=== PATIENT | female | born 1995 | race Caucasian/White ===

== ENCOUNTER 2020-05-12 13:31 | Emergency (ER) | payer SELFPAY ==
[2020-05-12 13:35] VITALS: BP 114/80; PULSE 92; RESP 18; TEMP 36.9; O2SAT 100
[2020-05-12] MEDS: ONDANSETRON HCL ODT 4 MG TABLET PO (13:55)
--- NOTE | 2020-05-12 13:59 | ED.NAVMDI ---
HPI - Nausea/Vomiting/Diarrhea General Chief complaint: Nausea/Vomiting/Diarrhea Stated complaint: vomiting/nausea/fletcher Source: patient and RN notes reviewed Mode of arrival: ambulatory Limitations: no limitations History of Present Illness HPI Narrative: This is a 24-year-old white female that presented to urgent care today with complaints of nausea and vomiting , sweats, lightheadedness and soft stools. According to patient she developed nausea and vomiting this a.m.. Patient notes that she is unable to keep any food down she has attempted to drink water but was unable to keep it down. She also noted that she had soft stool not quite diarrhea. She did attempt to take some zwez-rin-prrgnnh antinausea medication at home without any relief. She also noted having a little lightheadedness due to the nausea and vomiting. Patient does deny any abdominal pain ,hematemesis, rectal bleeding , SOB, CP, palpitation, extremity numbness, lightheadedness, dizziness, constipation, diarrhea, chills, or fever. Although patient is on her. She knows that with her condition she still become while on her menstrual. test complete and negative MD elicited complaint: nausea and vomiting Description of diarrhea: other (Soft) Related Data Allergies Allergy/AdvReac Type Severity Reaction Status Date / Time No Known Allergies Allergy Verified 05/12/20 13:45 Review of Systems Review of Systems: Narrative: CONSTITUTIONAL: Fatigue and sweats EYES: Denies visual changes, redness, discharge. ENT: Denies rhinorrhea, congestion, sore throat, otalgia. CARDIOVASCULAR: Denies chest pain, palpitations, edema. RESPIRATORY: Denies dyspnea, wheezing, cough GASTROINTESTINAL: Denies abdominal pain, diarrhea complains of nausea, vomiting, stools GENITOURINARY: Denies dysuria, hematuria, abnormal discharge SKIN: Denies rash or itching. MUSCULOSKELETAL: Denies acute back pain, joint pain, or myalgia. NEUROLOGIC: Denies numbness, or focal weakness. Lightheadedness PSYCHIATRIC: Denies anxiety or depression. PMFSH Past Medical History Medical History (Updated 05/12/20 @ 13:59 by JARRED Tanner) Anxiety Social History Social History (Updated 09/08/19 @ 23:51 by Poppy Helm) Smoking status: Current every day smoker Exam Narrative: Exam Narrative: GENERAL: This is a well-nourished, well-developed patient, in no apparent distress. HEAD: normocephalic, atraumatic. EYES: PERRL. Sclera clear/white. Vision is grossly intact. EARS: External ears normal, auditory canals clear and without drainage, TMs normal without perforation. Hearing grossly intact. NOSE: External nose normal with no obvious nasal discharge, nares without redness, no rhinorrhea. THROAT: Mucous membranes moist, posterior pharynx clear. NECK: Neck supple, non-tender without lymphadenopathy, masses or thyromegaly. CARDIOVASCULAR: Regular rate and rhythm without murmurs, gallops, or rubs. RESPIRATORY: Clear to auscultation. Breath sounds equal bilaterally. No wheezes, rales, or rhonchi. GASTROINTESTINAL: Abdomen soft, non-tender, nondistended. Bowel sounds are active. No hepato-splenomegaly, or palpable masses. No guarding. SKIN: warm, intact with no suspicious lesions or rash, good texture and turgor. NEURO: awake, alert, and oriented to person, place and time. There were no obvious focal neurologic abnormalities. Steady gait EXTREMITIES: Normal range of motion. No edema. No calf tenderness. Negative Homans sign bilaterally. BACK: Nontender without deformity or crepitance. No flank tenderness. Course Course Emergency Course: Patient treated for gastroenteritis given Zofran and Imodium for her nausea vomiting and diarrhea. Vital Signs Vital signs: Vital Signs Temperature 98.5 F 05/12/20 13:35 Pulse Rate 92 05/12/20 13:35 Respiratory Rate 18 05/12/20 13:35 Blood Pressure 114/80 05/12/20 13:35 Pulse Oximetry 100 05/12/20 13:35 Temperature 98.5 F
== END 2020-05-12 14:21 | disposition home or self-care (01) ==
PROVIDERS: Emergency Provider Nurse Practitioner
DX: K52.9 Noninfective gastroenteritis and colitis, unspecified (principal); F17.200 Nicotine dependence, unspecified, uncomplicated
CPT/HCPCS: 81025; 99213; A9270; G0463

== ENCOUNTER 2022-07-19 12:04 | Emergency (ER) | payer BC, SELFPAY ==
[2022-07-19 12:12] VITALS: BP 128/83; PULSE 77; RESP 20; TEMP 36.4; O2SAT 100
--- NOTE | 2022-07-19 12:28 | ED.URI ---
HPI - URI/Sore Throat General Chief Complaint: Upper Respiratory Infection Stated Complaint: Cough,Body Aches Time Seen by Provider: 07/19/22 12:17 Source: patient Mode of arrival: ambulatory Limitations: no limitations History of Present Illness HPI Narrative: Patient presents today complaining of cough body aches, postnasal drip, fatigue, and itchy throat since yesterday. Denies cough, congestion, rhinorrhea, fever, shortness of breath. Reports multiple sick contacts at work. She has been taking [place] Plus with relief. Patient does vape. Related Data Home Medications Medication Instructions Recorded Confirmed No Home Medications 07/19/22 07/19/22 Allergies Allergy/AdvReac Type Severity Reaction Status Date / Time No Known Allergies Allergy Verified 07/19/22 12:21 Review of Systems Review of Systems: CONSTITUTIONAL: Denies fever, chills, or sweats.+ body aches, fatigue EYES: Denies visual changes, redness, or discharge. ENT: Denies rhinorrhea, congestion, sore throat, or otalgia.+ itchy throat, postnasal drip CARDIOVASCULAR: Denies chest pain, palpitations, or edema. RESPIRATORY: Denies cough or dyspnea. GASTROINTESTINAL: Denies abdominal pain, nausea, vomiting, or diarrhea. GENITOURINARY: Denies dysuria or hematuria. SKIN: Denies rash, itching, or wounds. MUSCULOSKELETAL: Denies back pain, joint pain, or myalgia. NEUROLOGIC: Denies headache, numbness, tingling, or weakness. PSYCH: Denies depression or anxiety. FOR[facility]LY [facility], [facility] Past Medical History Medical History Anxiety Social History Social History (Updated 07/19/22 @ 12:30 by Lali Martinez, [employer], ) Smoking status: Current every day smoker Tobacco type: e-cigarettes/vaping Comments At time of signature, I have reviewed and agree with nursing past medical, surgical, social and family history unless otherwise noted. Please see nursing chart for further information. There is no relevant family history pertinent to the presenting complaint Exam Narrative: GENERAL: Well-appearing, well-nourished, and in no acute distress. HEAD: Normocephalic, atraumatic. EYES: EOMI. No redness or drainage. Conjunctivae normal. ENT: Mucous membranes pink and moist. Nares clear. No rhinorrhea. TMs normal bilaterally. Throat normal with mild postnasal drainage. Uvula midline. NECK: Normal AROM. Supple. No lymphadenopathy. CHEST: No respiratory distress. Clear to auscultation. HEART: Regular rate and rhythm. No murmur appreciated. Normal peripheral pulses. EXTREMITIES: Normal range of motion. No edema. SKIN: Warm, dry, no rash. Capillary refill normal. Normal skin turgor. NEURO: No focal deficits. Alert and oriented x3. Gait steady. PSYCH: Normal affect. No signs of depression or anxiety. Course Course Level of Care: Express Care Visit Vital Signs Vital signs: Vital Signs Temperature 97.5 F L 07/19/22 12:12 Pulse Rate 77 07/19/22 12:12 Respiratory Rate 20 07/19/22 12:12 Blood Pressure 128/83 07/19/22 12:12 Pulse Oximetry 100 07/19/22 12:12 Oxygen Delivery Room Air 07/19/22 12:12 Temperature 97.5 F L 07/19/22 12:12 Pulse Rate 77 07/19/22 12:12 Respiratory Rate 20 07/19/22 12:12 Blood Pressure 128/83 07/19/22 12:12 Pulse Oximetry 100 07/19/22 12:12 Oxygen Delivery Room Air 07/19/22 12:12 Reviewed. Pt has been instructed to follow up with her PCP regarding her elevated blood pressure today. MDM - URI/Sore Throat Differential Diagnosis Differential diagnosis: Likely upper respiratory infection, viral infection and influenza Critical Care Time Critical Care Time Critical Care Time: No Discharge Plan Discharge Clinical Impression: Upper respiratory infection Qualifiers: URI type: unspecified URI Qualified Code(s): J06.9 - Acute upper respiratory infection, unspecified Patient Disposition: Home, Self-Care Condition: Stable Ins
== END 2022-07-19 12:34 | disposition home or self-care (01) ==
PROVIDERS: Emergency Provider Nurse Practitioner
DX: J06.9 Acute upper respiratory infection, unspecified (principal); F17.290 Nicotine dependence, other tobacco product, uncomplicated
CPT/HCPCS: 99213; G0463

== ENCOUNTER 2024-01-20 20:18 | Emergency (ER) | payer BC, SELFPAY ==
--- NOTE | ~2024-01-20 | XR_ITS ---
Left Knee Technique: AP, lateral, and sunrise views were obtained. Clinical History: Pain, postoperative for COMPARISON: 03/16/2015 Findings: No fracture or dislocation is seen. Patient is status post ACL reconstruction. Osseous alig nment is anatomic. Joint spaces are preserved without degenerative or erosive change. Soft tissue swe lling and small amount of soft tissue gas present, predominantly in the suprapatellar region. Probabl e small joint effusion.. Impression: Status post presumed recent ACL reconstruction, with associated presumed postoperative changes in the soft tissues, as noted above. Small joint effusion. Reviewed, dictated and finalized at location . Impression: Status post presumed recent ACL reconstruction, with associated presumed postop erative changes in the soft tissues, as noted above. Small joint effusion.
[2024-01-20 20:30] VITALS: BP 139/94; PULSE 115; RESP 18; TEMP 36.6; O2SAT 96
--- NOTE | 2024-01-20 21:05 | PC.NURSE ---
lab notified of new orders
[2024-01-20 22:01] VITALS: BP 131/90; PULSE 92; RESP 18; O2SAT 100
[2024-01-20 22:01] LABS: Hematocrit 39.4 % (35.0-49.0); Hemoglobin 13.3 g/dL (12.0-15.0); Mean Corpuscular HGB Conc 33.8 g/dL (32-36); Mean Corpuscular Hemoglobin 29.7 pg (27.0-31.0); Mean Corpuscular Volume 87.9 fL (78.0-102.0); Platelet Count Result 324 K/mm3 (150-420); Red Blood Count 4.48 M/mm3 (4.20-5.40); Red Cell Distribution Width 12.1 % (11.6-14.4)
[2024-01-20 22:17] LABS: Alanine Aminotransferase 35 U/L (14-59); Albumin Level 3.5 g/dL (3.4-5.0); Alkaline Phosphatase 65 U/L (46-116); Anion Gap 12 mmol/L (4-12); Aspartate Amino Transferase 17 U/L (15-37); Bilirubin,Total 0.8 mg/dL (0.00-1.00); Blood Urea Nitrogen 13 mg/dL (7-18); CRP 2.5 mg/dL (0.0-0.9); Calcium 9.2 mg/dL (8.5-10.1); Carbon Dioxide 26 mmol/L (21-32); Chloride 100 mmol/L (98-108); Estimated CRCL calculation 84 ml/min; Estimated Glomerular Filt Rate > 60; Glucose 115 mg/dL (70-99); Osmolality Calculated 287 mOsm/kg (285-295); Potassium 3.9 mmol/L (3.5-5.1); Sodium 138 mmol/L (136-145); Total Protein 7.8 g/dL (6.4-8.2)
[2024-01-20 22:49] LABS: D Dimer 1.51 mg/L (0.19-0.50)
--- NOTE | 2024-01-20 22:57 | ED.GENADULT ---
HPI - General Adult General Chief complaint: Allergic Reaction Stated complaint: allergic reaction Source: patient Mode of arrival: ambulatory Limitations: no limitations History of Present Illness HPI narrative: 28-year-old white female status post postop day 4. From AC repair her left knee [facility]. Patient came into the emergency room complaining of a possible allergic reaction to a Band-Aid/ bandage that she place last night Over left side of her knee. She has complained of blisters around wound Without any discharge. Around 7:00 p.m. tonight she had a fever of 100.1 she noticed her left knee was warm to touch little bit more swollen and more erythematous. She has a knee immobilizer in place and she says she has pain in the knee 03/22. She relates this more to her knee immobilizer not fitting correctly.. Patient had some nausea and vomiting twice yesterday but denies any nausea vomiting and her appetite today is good denies any diarrhea. She has been constipated and has not had a bowel movement since her surgery been using stool softener and she years MiraLax once yesterday denies any problems voiding. Denies any shortness of breath or dizziness today. Denies any other rash besides erythema and the rash in the shape of a bandage that she had on her left knee. Denies any other thumb swelling than the increase in swelling of her left knee. Her left knee is hot today compared to yesterday was a normal temperature. She took some Tylenol at 8:00 p.m.. She stop taking her [place] yesterday. No history of DVT in the past denies any cough runny nose or sore throat or any other complaints. Past medical history: no significant past medical history surgeries just the recent AC repair allergies no known drug allergies Related Data Home Medications Medication Instructions Recorded Confirmed aspirin 81 mg tablet,delayed 81 mg PO DAILY 01/20/24 01/20/24 release Allergies Allergy/AdvReac Type Severity Reaction Status Date / Time No Known Allergies Allergy Verified 07/19/22 12:21 Review of Systems Review of Systems: All systems reviewed & are unremarkable except as noted in HPI and below PMFSH Past Medical History Medical History Anxiety Social History Social History (Updated 07/19/22 @ 12:30 by Lali Martinez, [employer], ) Smoking status: Current every day smoker Tobacco type: e-cigarettes/vaping Gender identity (if verbalized by the patient): Female Exam Narrative: White female patient with no apparent distress.? Head normocephalic, atraumatic.? Eyes conjunctiva pink sclera nonicteric.? Extraocular movements are intact.? Ears externally normal.? Oropharynx is clear with moist mucous membranes without exudates.? ? Lungs are clear.? Heart is regular rate and rhythm without murmurs gallops or rubs. Abdomen is soft and nontender no hepatosplenomegaly or masses no CVA tenderness no abdominal bruits.? Extremities: Left knee status post multiple incisions no drainage. The right side of the knee has the increased erythema in the shape of bandage that she had on recently with some blisters around the wound edges. And the knee itself is swollen hot to touch mildly tender. There is increased erythema. Thigh and calf are nontender. DP and PT pulses are +2. Negative Homans sign? Skin is warm and dry without rashes other than left knee.? Neurological patient is alert and oriented x4.? Motor and sensory grossly intact.? Gait is normal. Course Vital Signs Vital signs: Vital Signs Temperature 36.6 C 01/20/24 20:30 Pulse Rate 115 H 01/20/24 20:30 Respiratory Rate 18 01/20/24 20:30 Blood Pressure 139/94 H 01/20/24 20:30 Pulse Oximetry 96 01/20/24 20:30 Oxygen Delivery Room Air 01/20/24 20:30 Temperature 36.6 C 01/20/24 20:30 Pulse Rate 92 01/20/24 22:01 Respiratory Rate 18
--- NOTE | 2024-01-20 23:00 | PC.NURSE ---
patient is resting on stretcher with boyfriend at her side. waiting on provider to give test results. call light is in reach.
[2024-01-20 23:01] LABS: Erythrocyte Sedimentation Rate 42 mm/hr (0-15)
--- NOTE | 2024-01-20 23:46 | PC.NURSE ---
ER provider at the bedside
[2024-01-21] MEDS: ceFAZolin SODIUM 1 GM VIAL IM (00:38)
--- NOTE | 2024-01-27 15:27 | PC.NURSE ---
final blood cultures x2 reviewed. No growth after 5 days . No change in plan of care.
--- NOTE | 2024-01-28 14:13 | PC.NURSE ---
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 Patient discharged on Cephalexin. Per ERP Dr. Ge, no need for change in medication or further action at this time.
== END 2024-01-21 00:49 | disposition home or self-care (01) ==
PROVIDERS: Emergency Provider Emergency Medicine
DX: I82.492 Acute embolism and thrombosis of other specified deep vein of left lower extremity (principal); T81.40XA Infection following a procedure, unspecified, initial encounter; T78.40XA Allergy, unspecified, initial encounter
CPT/HCPCS: 36415; 73562; 80053; 85027; 85380; 85652; 86140; 87040; 87147; 96372; 99283; J0690

== ENCOUNTER 2024-01-23 07:16 | Outpatient (CLI) | payer BC, SELFPAY ==
--- NOTE | ~2024-01-23 | US_ITS ---
LEFT LOWER EXTREMITY VENOUS ULTRASOUND Ordering provider: Minh Castillo History: . calf swelling . Comparison: None. FINDINGS: --COMMON FEMORAL: Patent and free of thrombus. Normal compressibility, phasic flow and augmentation. --PROXIMAL SUPERFICIAL FEMORAL: Patent and free of thrombus. Normal compressibility, phasic flow and augmentation. --DISTAL SUPERFICIAL FEMORAL: Patent and free of thrombus. Normal compressibility, phasic flow and au gmentation. --POPLITEAL: Patent and free of thrombus. Normal compressibility, phasic flow and augmentation. --POSTERIOR TIBIAL: Patent and free of thrombus. Normal compressibility, phasic flow and augmentation . Free fluid is seen posterior to the knee which may indicate rupture Nassar's cyst. IMPRESSION: Negative left lower extremity venous US. No deep vein thrombosis. Reviewed, dictated and finalized at location A.
== END 2024-01-23 07:17 | disposition home or self-care (01) ==
LOC: CHSIMG 07:17
DX: M79.89 Other specified soft tissue disorders (principal)
CPT/HCPCS: 93971

== ENCOUNTER 2024-02-05 15:15 | Outpatient (RCR) | payer BC, SELFPAY ==
--- NOTE | 2024-02-05 16:58 | OPREHPOC ---
Outpatient Therapy Plan of Care This is a Multidisciplinary Plan of Care that may contain components documented by all disciplines (PT, OT, and ST.) PT Problem 1 PT Problem #1 Knowledge Deficit PT Goal 1 Goal The patient will be independent in a home exercise program. Target Visit 4 PT Goal 2 Goal The patient will be independent in an advanced home exercise program to continue after discharge from skilled PT. Target Visit 36 PT Problem 2 PT Problem #2 Pain PT Goal 1 Goal The patient will report no greater than 3/10 left knee pain with return to full weight bearing on the left LE with gait. Target Visit 12 PT Goal 2 Goal The patient will report no greater than 1/10 left knee pain with return to previous activities. Target Visit 36 PT Problem 3 PT Problem #3 Impaired Range of Motion PT Goal 1 Goal The patient will demonstrate left knee AROM of 0- 130 degrees to normalize gait. Target Visit 12 PT Problem 4 PT Problem #4 Impaired Functional Mobil PT Goal 1 Goal 1. The patient will demonstrate less than 50% self perceived disability per the LEFS. 2. The patient will be able to transfer sit to stand without use of the UE to improve functional strength and mobility. Target Visit 12 PT Goal 2 Goal 1. The patient will demonstrate less than 10% self perceived disability per the LEFS. 2. The patient will ambulate at least 1,200 feet during the 6 minute walk test without an AD and normal gait mechanics. 3. The patient will ascend and descend a flight of stairs reciprocally without left knee pain. Target Visit 36 PT Problem 5 PT Problem #5 Impaired Strength PT Goal 1 Goal The patient will be able to perform a SLR on the left with no extension lag indicating improved strength. Target Visit 12 PT Goal 2 Goal 1. The patient will demonstrate 5/5 left knee and hip strength throughout to normalize gait and functional mobility.
--- NOTE | 2024-02-05 16:58 | PTOPEVAL1 ---
Assessment and note entered by Ada Medley, PT Evaluation Information Assessment Status Evaluation Diagnosis s/p L ACL & MCL reconstruction Onset 01/17/24 Subjective Information Sergio Daily reports on 12/23/23 she was charged by a cow and had to jump over a fence and landed on her left leg. She went to the ER the same day and x-rays were taken. She was cleared for fractures but was diagnosed with an ACL rupture. She reports surgery was on 01/17/24 for an ACL reconstruction with a cadaver ligament as well as stabilization of the MCL. She was non-weight bearing and instructed to keep her knee straight from surgery until her follow up with the surgeon on 01/31/24. She was released to start weight bearing as tolerated. She is reporting her knee is achy but is not in a lot of pain. She does note pain and tightness with bending. She also notes atrophy in her muscles. She works at [employer] and has been unable to work because she is on crutches . Reported Pain Level Pain Score 1: Self Report Assessment PT Clinical Summary Sergio Daily presents 2.5 weeks s/p left ACL and MCL reconstruction following an injury sustained on 12/23/23 when she jumped a fence to avoid being charged by a cow. She has been non-weight bearing since the injury. She has only been performing ankle pumps since surgery on 01/17/24. She demonstrates fair (-) recruitment of the left quadriceps muscle, decreased left knee flexion AROM, decreased left knee and hip strength, altered gait, and impaired balance. She will benefit from skilled PT to address these limitations and return her to her previous level of function. Plan of Care Interventions Electrical Stimulation,Gait Training,Hot Pack/Cold Pack,Intermittent Compression,Manual Therapy, Neuro Re-education,Patient/Caregiver Educati, Therapeutic Activities,Therapeutic Exercise PT Services Indicated Yes Treatment Frequency and 3 times a week for 36 visits Duration These treatments will address the objective and functional deficits as defined above. The patient will be advanced safely and appropriately in order for the patient to progress towards his/her prior level of function. Additional exercises will be introduced and as well as a comprehensive home exercise program upon discharge, if needed, ?to ensure carryover of functional gains achieved in the clinic. This treatment plan has been reviewed and agreement upon by the patient.
--- NOTE | 2024-02-07 14:47 | PCPTNOTE ---
02/07/24: Updates made to IE note after speaking to surgeon's office this date and getting clarification on surgical procedure. -Ada Medley, PT
--- NOTE | 2024-02-07 14:48 | PTOPEVAL1 ---
Assessment and note entered by Ada Medley, PT Evaluation Information Assessment Status Evaluation Diagnosis s/p L ACL reconstruction Onset 01/17/24 Subjective Information Sergio Daily reports on 12/23/23 she was charged by a cow and had to jump over a fence and landed on her left leg. She went to the ER the same day and x-rays were taken. She was cleared for fractures but was diagnosed with an ACL rupture. She reports surgery was on 01/17/24 for an ACL reconstruction with a cadaver ligament as well as stabilization of the whole knee. She was non- weight bearing and instructed to keep her knee straight from surgery until her follow up with the surgeon on 01/31/24 when she was released to start weight bearing as tolerated. She is reporting her knee is achy but is not in a lot of pain. She does note pain and tightness with bending. She also notes atrophy in her muscles. She works at [employer] and has been unable to work because she is on crutches and not allowed to come to work on crutches. Reported Pain Level Pain Score 2: Self Report Pain Score 1: Self Report Assessment PT Clinical Summary Sergio Daily presents 2.5 weeks s/p left ACL reconstruction following an injury sustained on 08/05 when she jumped a fence to avoid being charged by a cow. She has been non-weight bearing since the injury. She has only been performing ankle pumps since surgery on 01/17/24. She demonstrates fair (-) recruitment of the left quadriceps muscle, decreased left knee flexion AROM, decreased left knee and hip strength, altered gait, and impaired balance. She will benefit from skilled PT to address these limitations and return her to her previous level of function. Plan of Care Interventions Electrical Stimulation,Gait Training,Hot Pack/Cold Pack,Intermittent Compression,Manual Therapy, Neuro Re-education,Patient/Caregiver Educati, Therapeutic Activities,Therapeutic Exercise PT Services Indicated Yes Treatment Frequency and 3 times a week for 36 visits Duration These treatments will address the objective and functional deficits as defined above. The patient will be advanced safely and appropriately in order for the patient to progress towards his/her prior level of function. Additional exercises will be introduced and as well as a comprehensive home exercise program upon discharg
--- NOTE | 2024-02-08 14:51 | PCPTNOTE ---
I reviewed the License Pending Therapist's documentation and agree with the findings.
--- NOTE | 2024-02-18 17:53 | PCPTNOTE ---
I reviewed the License Pending Therapist's documentation and agree with the findings.
--- NOTE | 2024-02-22 13:49 | PCPTNOTE ---
I reviewed the License Pending Therapist's documentation and agree with the findings.
--- NOTE | 2024-02-25 13:14 | PCPTNOTE ---
Patient called & cancelled scheduled appointment this date due to [illness ]
--- NOTE | 2024-03-03 15:12 | PCPTNOTE ---
I reviewed the License Pending Therapist's documentation and agree with the findings.
--- NOTE | 2024-03-06 16:49 | OPREHPOC ---
Outpatient Therapy Plan of Care This is a Multidisciplinary Plan of Care that may contain components documented by all disciplines (PT, OT, and ST.) PT Problem 1 PT Problem #1 Knowledge Deficit PT Goal 1 Goal The patient will be independent in a home exercise program. Target Visit 4 Progress Met PT Goal 2 Goal The patient will be independent in an advanced home exercise program to continue after discharge from skilled PT. Target Visit 36 Progress Not Met PT Problem 2 PT Problem #2 Pain PT Goal 1 Goal The patient will report no greater than 3/10 left knee pain with return to full weight bearing on the left LE with gait. Target Visit 24 Progress Not Met PT Goal 2 Goal The patient will report no greater than 1/10 left knee pain with return to previous activities. Target Visit 36 Progress Not Met PT Problem 3 PT Problem #3 Impaired Range of Motion PT Goal 1 Goal The patient will demonstrate left knee AROM of 0- 130 degrees to normalize gait. Target Visit 24 Progress Not Met PT Problem 4 PT Problem #4 Impaired Functional Mobil PT Goal 1 Goal 1. The patient will demonstrate less than 50% self perceived disability per the LEFS. 2. The patient will be able to transfer sit to stand without use of the UE to improve functional strength and mobility. Target Visit 24 Progress Not Met PT Goal 2 Goal 1. The patient will demonstrate less than 10% self perceived disability per the LEFS. 2. The patient will ambulate at least 1,200 feet during the 6 minute walk test without an AD and normal gait mechanics. 3. The patient will ascend and descend a flight of stairs reciprocally without left knee pain. Target Visit 36 Progress Not Met PT Problem 5 PT Problem #5 Impaired Strength PT Goal 1 Goal
--- NOTE | 2024-03-06 16:49 | PTOPREEVAL ---
Assessment and note entered by JT File, PT Evaluation Information Assessment Status Re-evaluation Diagnosis s/p L ACL reconstruction ICD-10 Condition Codes (PT) Z47.89 Onset 01/17/24 Subjective Information patient reports she feels alright today. she reports the knee is really tight. she reports she continues to be tight with bending the R knee into flexion. she reports she is compliant with HEP at home, but it is hard as it causes burning and increased pain in the R knee working on flexion. she reports she continues to use the knee brace for stability with walking/standing. 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 she continues to display significant tightness in the L knee into flexion and deficits in stability of the L quads. she shoulder be progressing to phase 3 of her rehab at this time, but she is not ready yet due to pain, tightness, decreased rom, strength deficits, and abnormal gait mechanics. continued skilled PT is indicated to improve patients objective/functional deficits and progress towards achievement of remaining goals. rehab will need to be more aggressive to achieve her rom and strength goals, and patient may need the assistance of a static progressive splint to help achieve L knee flexion rom. Plan of Care Interventions Electrical Stimulation,Gait Training,Hot Pack/Cold Pack,Intermittent Compression,Manual Therapy, Neuro Re-education,Patient/Caregiver Educati, Therapeutic Activities,Therapeutic Exercise PT Services Indicated Yes Treatment Frequency and continue skilled PT 3x weekly for 12 more visits Duration These treatments will address the objective and functional deficits as defined above. The patient will be advanced safely and appropriately in order for the patient to progress towards his/her prior level of function. Additional exercises will be introduced and as well as a comprehensive home exercise program upon discharge, if needed, ?to ensure carryover of functional gains achieved in the clinic. This treatment plan has been reviewed and agreement upon by the patient.
--- NOTE | 2024-03-10 16:42 | PCPTNOTE ---
MaximilianT called and spoke to doctor's office about patient receiving a NILSA progressive brace. Doctor's office is going to fax an order.
--- NOTE | 2024-03-10 16:51 | PCPTNOTE ---
Doctor will send order for NILSA brace after follow up with Dr. Castillo on March.
--- NOTE | 2024-03-10 17:19 | PCPTNOTE ---
I reviewed the License Pending Therapist's documentation and agree with the findings.
--- NOTE | 2024-03-14 11:25 | PCPTNOTE ---
Patient called & cancelled scheduled appointment this date.
--- NOTE | 2024-03-17 17:47 | PCPTNOTE ---
I reviewed the License Pending Therapist's documentation and agree with the findings.
--- NOTE | 2024-03-19 12:13 | OPREHPOC ---
Outpatient Therapy Plan of Care This is a Multidisciplinary Plan of Care that may contain components documented by all disciplines (PT, OT, and ST.) PT Problem 1 PT Problem #1 Knowledge Deficit PT Goal 1 Goal The patient will be independent in a home exercise program. Target Visit 4 Progress Met PT Goal 2 Goal The patient will be independent in an advanced home exercise program to continue after discharge from skilled PT. Target Visit 36 Progress Not Met Comment continue PT Problem 2 PT Problem #2 Pain PT Goal 1 Goal The patient will report no greater than 3/10 left knee pain with return to full weight bearing on the left LE with gait. Target Visit 24 Progress Met PT Goal 2 Goal The patient will report no greater than 1/10 left knee pain with return to previous activities. Target Visit 36 Progress Not Met Comment continue PT Problem 3 PT Problem #3 Impaired Range of Motion PT Goal 1 Goal The patient will demonstrate left knee AROM of 0- 130 degrees to normalize gait. Target Visit 24 Progress Partially Met Comment continue PT Problem 4 PT Problem #4 Impaired Functional Mobil PT Goal 1 Goal 1. The patient will demonstrate less than 50% self perceived disability per the LEFS. 2. The patient will be able to transfer sit to stand without use of the UE to improve functional strength and mobility. Target Visit 24 Progress Not Met Comment continue PT Goal 2 Goal 1. The patient will demonstrate less than 10% self perceived disability per the LEFS. 2. The patient will ambulate at least 1,200 feet during the 6 minute walk test without an AD and normal gait mechanics. 3. The patient will ascend and descend a flight of
--- NOTE | 2024-03-19 12:13 | PTOPPROG ---
Assessment and note entered by Ada Medley, PT Evaluation Information Assessment Status Progress Diagnosis s/p L ACL reconstruction ICD-10 Condition Codes (PT) Pain in left knee M25.562 Onset 01/17/24 Subjective Information Ankita reports she will see her surgeon on 03/20/24 . Her left knee is getting better overall but she still has difficulty bending it and is just barely making it to 90 degrees. She continues to use her brace when walking outside the home. She is occasionally taking a few steps without the brace at home. She notes she still has to take stairs one at a time. She has not returned to work yet either. Assessment PT Clinical Summary Sergio Gerardo has completed 17 skilled PT visits following an ACL reconstruction performed on . She is reporting steady improvements in knee pain but still gets occasional pain, has difficulty bending the knee, and can not go up and down stairs reciprocally. She continues to use her hinged knee brace for ambulation as she does not have full quad control yet. She demonstrates limitations in left knee flexion active and passive ROM. Treatment has been focusing on restoring left knee flexion ROM and progress has been made however, it is slow and she is still limited to 90 degrees passively. She continues to have L LE circumduction during gait to compensate for decreased left knee flexion ROM. Strength in the left quadriceps is progressing but is still limited. She will benefit from continued skilled PT to further address strength, gait, balance, and knee ROM. She will also benefit from a dynamic ROM device to improve flexion ROM. Plan of Care Interventions Electrical Stimulation,Gait Training,Hot Pack/Cold Pack,Intermittent Compression,Manual Therapy, Neuro Re-education,Patient/Caregiver Educati, Therapeutic Exercise PT Services Indicated Yes Treatment Frequency and 3 times a week for 18 visits Duration These treatments will address the objective and functional deficits as defined above. The patient will be advanced safely and appropriately in order for the patient to progress towards his/her prior level of function. Additional exercises will be introduced and as well as a comprehensive home exercise program upon discharge, if needed, ?to ensure carryover of functional gains achieved in the clinic. This treatment plan has been reviewed and agreement upon by the patient.
--- NOTE | 2024-03-21 17:28 | PCPTNOTE ---
I reviewed the License Pending Therapist's documentation and agree with the findings.
--- NOTE | 2024-04-09 13:24 | PTOPPROGNS ---
Assessment and note entered by JT File, PT Evaluation Information Assessment Status Progress Diagnosis s/p L ACL reconstruction ICD-10 Condition Codes (PT) Pain in left knee M25.562 Onset 01/17/24 Subjective Information patient reports she is sore in the L knee. she reports today was her first day back to work. she reports the knee is sore from sitting at her desk with the L knee bent all day. Assessment PT Clinical Summary mrs. goodson presents to skilled PT for treatment progress note today. she presents with improved rom of the L knee both active and passive. however , she has tightened up a bit today compared to her last few session. this is likely due to today being her first day back to work. she continues to be a good candidate for rehab, and continues to have unmet goals in skilled PT. patient will continued skilled PT per POC at last re-evaluation . Plan of Care Interventions Electrical Stimulation,Gait Training,Hot Pack/Cold Pack,Intermittent Compression,Manual Therapy, Neuro Re-education,Patient/Caregiver Educati, Therapeutic Exercise PT Services Indicated Yes Treatment Frequency and continue per POC established at last re-evaluation Duration These treatments will address the objective and functional deficits as defined above. The patient will be advanced safely and appropriately in order for the patient to progress towards his/her prior level of function. Additional exercises will be introduced and as well as a comprehensive home exercise program upon discharge, if needed, ?to ensure carryover of functional gains achieved in the clinic. This treatment plan has been reviewed and agreement upon by the patient.
--- NOTE | 2024-04-09 13:24 | OPREHPOC ---
Outpatient Therapy Plan of Care This is a Multidisciplinary Plan of Care that may contain components documented by all disciplines (PT, OT, and ST.) PT Problem 1 PT Problem #1 Knowledge Deficit PT Goal 1 Goal / Goal Update The patient will be independent in a home exercise program. Target Visit 4 Progress Met PT Goal 2 Goal / Goal Update The patient will be independent in an advanced home exercise program to continue after discharge from skilled PT. Target Visit 36 Progress Not Met PT Problem 2 PT Problem #2 Pain PT Goal 1 Goal / Goal Update The patient will report no greater than 3/10 left knee pain with return to full weight bearing on the left LE with gait. Target Visit 24 Progress Met PT Goal 2 Goal / Goal Update The patient will report no greater than 1/10 left knee pain with return to previous activities. Target Visit 36 Progress Not Met PT Problem 3 PT Problem #3 Impaired Range of Motion PT Goal 1 Goal / Goal Update The patient will demonstrate left knee AROM of 0- 130 degrees to normalize gait. Target Visit 24 Progress Partially Met PT Problem 4 PT Problem #4 Impaired Functional Mobil PT Goal 1 Goal / Goal Update 1. The patient will demonstrate less than 50% self perceived disability per the LEFS. 2. The patient will be able to transfer sit to stand without use of the UE to improve functional strength and mobility. Target Visit 24 Progress Not Met PT Goal 2 Goal / Goal Update 1. The patient will demonstrate less than 10% self perceived disability per the LEFS. 2. The patient will ambulate at least 1,200 feet during the 6 minute walk test without an AD and normal gait mechanics. 3. The patient will ascend and descend a flight of stairs reciprocally without left knee pain. Target Visit 36 Progress Not Met PT Problem 5 PT Problem #5 Impaired Strength PT Goal 1 Goal /
--- NOTE | 2024-04-09 15:04 | OPREHPOC ---
Outpatient Therapy Plan of Care This is a Multidisciplinary Plan of Care that may contain components documented by all disciplines (PT, OT, and ST.) PT Problem 1 PT Problem #1 Knowledge Deficit PT Goal 1 Goal / Goal Update The patient will be independent in a home exercise program. Target Visit 4 Progress Met PT Goal 2 Goal / Goal Update The patient will be independent in an advanced home exercise program to continue after discharge from skilled PT. Target Visit 36 Progress Not Met PT Problem 2 PT Problem #2 Pain PT Goal 1 Goal / Goal Update The patient will report no greater than 3/10 left knee pain with return to full weight bearing on the left LE with gait. Target Visit 24 Progress Met PT Goal 2 Goal / Goal Update The patient will report no greater than 1/10 left knee pain with return to previous activities. Target Visit 36 Progress Not Met PT Problem 3 PT Problem #3 Impaired Range of Motion PT Goal 1 Goal / Goal Update The patient will demonstrate left knee AROM of 0- 130 degrees to normalize gait. Target Visit 24 Progress Partially Met PT Problem 4 PT Problem #4 Impaired Functional Mobil PT Goal 1 Goal / Goal Update 1. The patient will demonstrate less than 50% self perceived disability per the LEFS. -met 2. The patient will be able to transfer sit to stand without use of the UE to improve functional strength and mobility. -not met Target Visit 24 Progress Partially Met PT Goal 2 Goal / Goal Update 1. The patient will demonstrate less than 10% self perceived disability per the LEFS. 2. The patient will ambulate at least 1,200 feet during the 6 minute walk test without an AD and normal gait mechanics. 3. The patient will ascend and descend a flight of stairs reciprocally without left knee pain. Target Visit 36 Progress Not Met PT Problem 5 PT Problem #5 Impaired Strength PT Goal 1 Goal /
--- NOTE | 2024-04-09 15:04 | PTOPPROG ---
Assessment and note entered by Ada Medley, PT Evaluation Information Assessment Status Progress Diagnosis s/p L ACL reconstruction ICD-10 Condition Codes (PT) Pain in left knee M25.562 Onset 01/17/24 Subjective Information Sergio Daily reports she will be having surgery on 04/25/24 for scar tissue removal and manipulation. She has returned to work for 6 hours a day and is limiting squatting and lifting. She has been primarily driving a fork lift. She is able to drive her vehicle and can take stairs reciprocally however she has to use handrails. She notes increased achiness and pain after working and when walking longer distances at the store or when she walks from her car to her office at work. Assessment PT Clinical Summary Sergio Daily has completed 24 skilled PT visits following L knee surgery for ACL reconstruction, medial menisectomy, and lateral extraarticular tenodesis. She is reporting increased left knee pain following work activities. She continues to have difficulty with prolonged walking, squatting, driving, and stair negotiation. She continues to wear her brace at work and when out in public. She will have another surgery on 04/25/24 to remove scar tissue. She is demonstrating decreased left knee flexion active and passive ROM and decreased left knee strength and stability. She is making slow progress with left knee flexion ROM and strength since initiating PT. She will continue to benefit from skilled PT until her surgery to prevent regression in ROM and continue to build strength and stability. Plan of Care Interventions Electrical Stimulation,Gait Training,Hot Pack/Cold Pack,Neuro Re-education,Patient/Caregiver Educati ,Therapeutic Exercise PT Services Indicated Yes Treatment Frequency and 2 times a week for 6 visits Duration These treatments will address the objective and functional deficits as defined above. The patient will be advanced safely and appropriately in order for the patient to progress towards his/her prior level of function. Additional exercises will be introduced and as well as a comprehensive home exercise program upon discharge, if needed, ?to ensure carryover of functional gains achieved in the clinic. This treatment plan has been reviewed and agreement upon by the patient.
--- NOTE | 2024-04-23 17:20 | OPREHPOC ---
Outpatient Therapy Plan of Care This is a Multidisciplinary Plan of Care that may contain components documented by all disciplines (PT, OT, and ST.) PT Problem 1 PT Problem #1 Knowledge Deficit PT Goal 1 Goal / Goal Update The patient will be independent in a home exercise program. Target Visit 4 Progress Met PT Goal 2 Goal / Goal Update The patient will be independent in an advanced home exercise program to continue after discharge from skilled PT. Target Visit 50 Progress Not Met PT Problem 2 PT Problem #2 Pain PT Goal 1 Goal / Goal Update The patient will report no greater than 3/10 left knee pain with return to full weight bearing on the left LE with gait. Target Visit 24 Progress Met PT Goal 2 Goal / Goal Update The patient will report no greater than 1/10 left knee pain with return to previous activities. Target Visit 50 Progress Not Met PT Problem 3 PT Problem #3 Impaired Range of Motion PT Goal 1 Goal / Goal Update The patient will demonstrate left knee AROM of 0- 130 degrees to normalize gait. Target Visit 24 Progress Partially Met PT Goal 2 Goal / Goal Update Continue flexion goal. Target Visit 50 PT Problem 4 PT Problem #4 Impaired Functional Mobil PT Goal 1 Goal / Goal Update 1. The patient will demonstrate less than 50% self perceived disability per the LEFS. -met 2. The patient will be able to transfer sit to stand without use of the UE to improve functional strength and mobility. -not met Target Visit 24 Progress Partially Met PT Goal 2 Goal / Goal Update 1. The patient will demonstrate less than 10% self perceived disability per the LEFS. 2. The patient will ambulate at least 1,200 feet during the 6 minute walk test without an AD and normal gait mechanics. 3. The patient will ascend and descend a flight of stairs reciprocally without left knee pain. Target Visit 50 Progress
--- NOTE | 2024-04-23 17:20 | PTOPEVAL1 ---
Assessment and note entered by Ada Medley, PT Evaluation Information Assessment Status Progress Diagnosis s/p L ACL reconstruction ICD-10 Condition Codes (PT) Pain in left knee M25.562 Onset 01/17/24 Subjective Information Sergio Gerardo reports she will undergo a left knee open and closed manipulation on 04/25/24 due to lack of knee flexion ROM. She reports the swelling is going down and she is just having occasional pain. She has been using a floor mini bike and performing heel slides at home to work on ROM. She has been working 8 hours a day again without much limitation. She will be off work all next week after having her surgery on 04/25/24. Reported Pain Level Pain Score 0: Self Report Assessment PT Clinical Summary Sergio Gerardo has completed 29 skilled PT visits following L knee surgery for ACL reconstruction, medial menisectomy, and lateral extraarticular tenodesis. She reports less left knee pain and less swelling. She has been able to return to full duty work and is walking without her brace most of the time. She has been stretching a lot at home with a strap and mini bike that sits on the floor . She demonstrates steady improvements in right knee flexion ROM as well as right knee strength. She demonstrates right knee AROM today of 0-105 degrees and right knee flexion PROM is 116 degrees . She also continues to demonstrate decreased right quadriceps eccentric control. She will continue to benefit from skilled PT following her manipulation. Plan of Care Interventions Electrical Stimulation,Hot Pack/Cold Pack,Neuro Re -education,Patient/Caregiver Educati,Therapeutic Exercise PT Services Indicated Yes Treatment Frequency and Continue PT 5 days a week for 10 visits following Duration her manipulation These treatments will address the objective and functional deficits as defined above. The patient will be advanced safely and appropriately in order for the patient to progress towards his/her prior level of function. Additional exercises will be introduced and as well as a comprehensive home exercise program upon discharge, if needed, ?to ensure carryover of functional gains achieved in the clinic. This treatment plan has been reviewed and agreement upon by the patient.
--- NOTE | 2024-04-25 13:50 | PCPTNOTE ---
sent below HEP over to patient via phone today as she is post op CHARLIE. JTF Knee Post-Op Initial [[id number]] Heel Prop - Repeat 1 Repetition, Hold 10 Minutes, Complete 1 Set, Perform 4 Times a Day SUPINE HEEL SLIDES - AAROM - Repeat 1 Repetition, Hold 5 Minutes, Complete 1 Set, Perform 4 Times a Day QUAD SET - TOWEL UNDER KNEE - Repeat 20 Repetitions, Hold 4 Seconds, Complete 1 Set, Perform 4 Times a Day STRAIGHT LEG RAISE - SLR - Repeat 20 Repetitions, Hold 2 Seconds, Complete 1 Set, Perform 4 Times a Day HIP ABDUCTION - SIDELYING - Repeat 20 Repetitions, Hold 2 Seconds, Complete 1 Set, Perform 4 Times a Day HEEL SLIDES - WALL - Repeat 1 Repetition, Hold 5 Minutes, Complete 1 Set, Perform 4 Times a Day
--- NOTE | 2024-04-29 09:52 | PCPTNOTE ---
Patient called & cancelled scheduled appointment this date due to being up sick most of the night. -Ada Medley, PT
== END 2024-05-05 16:01 | disposition still patient (30) ==
LOC: CHSPT 15:15
DX: S83.512D Sprain of anterior cruciate ligament of left knee, subsequent encounter (principal)
CPT/HCPCS: 97014; 97110; 97112; 97116; 97150; 97161; G0283

== ENCOUNTER 2024-05-06 16:03 | Outpatient (RCR) | payer BC, SELFPAY ==
--- NOTE | 2024-05-16 07:43 | OPREHPOC ---
Outpatient Therapy Plan of Care This is a Multidisciplinary Plan of Care that may contain components documented by all disciplines (PT, OT, and ST.) PT Problem 1 PT Problem #1 Knowledge Deficit PT Goal 1 Goal / Goal Update The patient will be independent in a home exercise program. Target Visit 4 Progress Met PT Goal 2 Goal / Goal Update The patient will be independent in an advanced home exercise program to continue after discharge from skilled PT. Target Visit 50 Progress Not Met PT Problem 2 PT Problem #2 Pain PT Goal 1 Goal / Goal Update The patient will report no greater than 3/10 left knee pain with return to full weight bearing on the left LE with gait. Target Visit 24 Progress Met PT Goal 2 Goal / Goal Update The patient will report no greater than 1/10 left knee pain with return to previous activities. Target Visit 50 Progress Not Met PT Problem 3 PT Problem #3 Impaired Range of Motion PT Goal 1 Goal / Goal Update The patient will demonstrate left knee AROM of 0- 130 degrees to normalize gait. Target Visit 24 Progress Partially Met PT Goal 2 Goal / Goal Update Continue flexion goal. Target Visit 50 PT Problem 4 PT Problem #4 Impaired Functional Mobil PT Goal 1 Goal / Goal Update 1. The patient will demonstrate less than 50% self perceived disability per the LEFS. -met 2. The patient will be able to transfer sit to stand without use of the UE to improve functional strength and mobility. -not met Target Visit 24 Progress Partially Met PT Goal 2 Goal / Goal Update 1. The patient will demonstrate less than 10% self perceived disability per the LEFS. 2. The patient will ambulate at least 1,200 feet during the 6 minute walk test without an AD and with normal gait mechanics. 3. The patient will ascend and descend a flight of stairs reciprocally without left knee pain. Target Visit 50 Progress Not Met PT Problem 5 PT Problem #5 Impaired Strength PT Goal 1 Goal / Goal Update The patient will be able to perform a SLR on the left with no extension lag indicating improved strength. Target Visit 24 Progress Met PT Goal 2 Goal / Goal Update 1. The patient will demonstrate 5/5 left knee and hip strength throughout to normalize gait and functional mobility. Target Visit 50 Progress Not Met
--- NOTE | 2024-05-16 07:43 | PTOPREEVAL ---
Assessment and note entered by JT File, PT Evaluation Information Assessment Status Re-evaluation Diagnosis s/p L ACL reconstruction ICD-10 Condition Codes (PT) Pain in left knee M25.562 Onset 01/17/24 Subjective Information patient reports she feels Alright today. she reports she has been in a car for quite a bit of time going to work and her surgeons office. she reports she had her stitches taken out. she reports the pain is decreased overall, and her mobility is improving day by day. 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 she presents today with improved active and passive L knee flexion mobility, but continues to display poor ambulation mechanics. she also lacks achievement of all functional goals set forth at her last re- evaluation. patient would benefit from continued skilled PT to continue to address her ROM, strength, and functional deficits to return to her prior level functional activity performance and quality of life. Plan of Care Interventions Electrical Stimulation,Gait Training,Hot Pack/Cold Pack,Neuro Re-education,Patient/Caregiver Educati ,Therapeutic Activities,Therapeutic Exercise PT Services Indicated Yes Treatment Frequency and continue skilled PT 3x weekly for 12 visits Duration These treatments will address the objective and functional deficits as defined above. The patient will be advanced safely and appropriately in order for the patient to progress towards his/her prior level of function. Additional exercises will be introduced and as well as a comprehensive home exercise program upon discharge, if needed, ?to ensure carryover of functional gains achieved in the clinic. This treatment plan has been reviewed and agreement upon by the patient.
--- NOTE | 2024-05-30 12:04 | PCPTNOTE ---
Patient called & cancelled scheduled appointment this date due to []
--- NOTE | 2024-06-09 17:20 | PTOPPROG ---
Assessment and note entered by Robert Jacob Evaluation Information Assessment Status Progress Diagnosis s/p ACL reconstruction ICD-10 Condition Codes (PT) Pain in left hip M25.552 Onset 01/17/24 Subjective Information Pt. reports that she still notices difficulty with going down stairs. She states that she still has a desire to be able to return to running and jumping. She states that she was very active before her injury and did a lot of hiking. She reports that her goal remains to return to running and jumping. Assessment PT Clinical Summary Pt. demonstrates excellent progress in regards to ROM and strength. Despite progress continue to note large discrepancy in her ability to complete the single leg press. She is only currently at 50 % normal strength on the left compared to the right. Continue to note desire to internally rotates the hip with squatting activities as well. At this time she has an advanced HEP and has been participating in the gym on her own. I still do not feel that she is appropriate to return to running until quad strength on the left becomes more symmetrical to the right. Recommend continued skilled PT at a decreased frequency to assure proper advancement of exercise in order to be able to safely return to running. Plan of Care Interventions Gait Training,Neuro Re-education,Patient/Caregiver Educati,Therapeutic Activities,Therapeutic Exercise PT Services Indicated Yes Treatment Frequency and 1x/ every 2 weeks for a total of 4 visits. Duration These treatments will address the objective and functional deficits as defined above. The patient will be advanced safely and appropriately in order for the patient to progress towards his/her prior level of function. Additional exercises will be introduced and as well as a comprehensive home exercise program upon discharge, if needed, ?to ensure carryover of functional gains achieved in the clinic. This treatment plan has been reviewed and agreement upon by the patient.
--- NOTE | 2024-07-08 15:41 | PCPTNOTE ---
Patient called & cancelled scheduled appointment this date.
--- NOTE | 2024-07-29 16:55 | OPREHPOC ---
Outpatient Therapy Plan of Care This is a Multidisciplinary Plan of Care that may contain components documented by all disciplines (PT, OT, and ST.) PT Problem 1 PT Problem #1 Knowledge Deficit PT Goal 1 Goal / Goal Update The patient will be independent in a home exercise program. Target Visit 4 Progress Met PT Goal 2 Goal / Goal Update The patient will be independent in an advanced home exercise program to continue after discharge from skilled PT. Target Visit 50 Progress Met PT Problem 2 PT Problem #2 Pain PT Goal 1 Goal / Goal Update The patient will report no greater than 3/10 left knee pain with return to full weight bearing on the left LE with gait. Target Visit 24 Progress Met PT Goal 2 Goal / Goal Update The patient will report no greater than 1/10 left knee pain with return to previous activities. Target Visit 50 Progress Met PT Problem 3 PT Problem #3 Impaired Range of Motion PT Goal 1 Goal / Goal Update The patient will demonstrate left knee AROM of 0- 130 degrees to normalize gait. Target Visit 24 Progress Met PT Goal 2 Goal / Goal Update Continue flexion goal. Target Visit 50 Progress Met PT Problem 4 PT Problem #4 Impaired Functional Mobility PT Goal 1 Goal / Goal Update 1. The patient will demonstrate less than 50% self perceived disability per the LEFS. -met 2. The patient will be able to transfer sit to stand without use of the UE to improve functional strength and mobility. -not met Target Visit 24 Progress Met PT Goal 2 Goal / Goal Update 1. The patient will demonstrate less than 10% self perceived disability per the LEFS. Not met 2. The patient will ambulate at least 1,200 feet during the 6 minute walk test without an AD and with normal gait mechanics. met 3. The patient will ascend and descend a flight of stairs reciprocally without left knee pain. met Target Visit 50 Progress Partially Met PT Problem 5 PT Problem #5 Impaired Strength PT Goal 1 Goal / Goal Update The patient will be able to perform a SLR on the left with no extension lag indicating improved strength. Target Visit 24 Progress Met PT Goal 2 Goal / Goal Update 1. The patient will demonstrate 5/5 left knee and hip strength throughout to normalize gait and functional mobility. not met 2. Pt. will demonstrate 80% or 1 rep max with leg press on the left in comparison to right l.e. max weight. not met Target Visit 50 Progress Partially Met
--- NOTE | 2024-07-29 16:55 | PTOPDC ---
Assessment and note entered by JT File, PT Evaluation Information Assessment Status Discharge Diagnosis s/p ACL reconstruction ICD-10 Condition Codes (PT) Pain in left hip M25.552 Onset 01/17/24 Subjective Information patient reports she feels great today regarding the L knee. however, she reports she has been stressed about some more internal issues. she has been compliant with HEP exercises at home, and is back to full work duties. Reported Pain Level Pain Score 0: Self Report Assessment PT Clinical Summary mrs. goodson presents to skilled PT services with no pain in the L knee. she displays full L knee active rom, 5/5 L hip strength, and progress towards L knee and leg press strength. patient is now more than 6 months post op. she has been educated in HEP and exercise focus to continue with on her own. as of this date she will DC skilled PT. Plan of Care PT Services Indicated Yes
== END 2024-07-29 17:05 | disposition home or self-care (01) ==
LOC: CHSPT 16:03
DX: S83.512D Sprain of anterior cruciate ligament of left knee, subsequent encounter (principal)
CPT/HCPCS: 97110; 97150; 97530

== ENCOUNTER 2024-06-29 04:22 | Emergency (ER) | payer BC, SELFPAY ==
--- NOTE | ~2024-06-29 | CT_ITS ---
CT of the Abdomen and Pelvis: Indication: Abdominal pain Technique: 2.5 mm axial scans were obtained through the abdomen and pelvis following intravenous adm inistration of 100 cc of Omnipaque 350. Dose reduction technique was used on this scan by utilizing a utomated exposure control and iterative reconstruction technique. The dose-length product (DLP) was 1 88.06 mGy-cm. Findings: Scans through the lung bases are unremarkable. The liver, spleen, pancreas, gallbladder, adrenals and kidneys are within normal limits. No evidence of aortic aneurysm. No lymphadenopathy. No bowel obstruction or bowel wall thickening. There is no evidence to suggest acute appendicitis. Images through the pelvis were performed. Urinary bladder unremarkable. There is a 9.6 x 9.0 x 9.0 cm simple cystic appearing mass in the midline just superior to the urinary bladder, and anterior to th e uterine body. No other pelvic mass seen. No ascites. Impression: 9.6 x 9.0 x 9.0 cm simple cystic appearing mass in the midline in the pelvis, as above. Precise site of origin is unclear, with difficult evaluation due to midline positioning and paucity of intraabdomi nal fat. Diagnostic considerations include ovarian cyst (left or right) versus possibility of some so rt of duplication cyst. Consider pelvic ultrasound to attempt to identify normal ovaries, as indicate d. Reviewed, dictated and finalized at location . SHIPMENT CLERK Impression: 9.6 x 9.0 x 9.0 cm simple cystic appearing mass in the midline in the pelvis, a s above. Precise site of origin is unclear, with difficult evaluation due to mi dline positioning and paucity of intraabdominal fat. Diagnostic considerations include ovarian cyst (left or right) versus possibility of some sort of duplica tion cyst. Consider pelvic ultrasound to attempt to identify normal ovaries, as indicated.
[2024-06-29 04:26] VITALS: BP 127/92; PULSE 70; RESP 20; TEMP 36.6; O2SAT 100
[2024-06-29] MEDS: MORPHINE SULFATE (*CRX) 4 MG/ML INJ IV PUSH (04:54)
[2024-06-29] MEDS: ONDANSETRON INJ 4 MG/2 ML VIAL IV PUSH (04:54)
[2024-06-29] MEDS: SODIUM CHLORIDE 0.9% IV 1,000 ML 999 ML IV CONT (04:57)
[2024-06-29 05:14] LABS: Basophils Absolute Auto 0.04 K/mm3 (0.00-0.10); Basophils Percent Auto 0.6 % (0.0-1.0); Eosinophils Absolute Auto 0.18 K/mm3 (0.02-0.50); Eosinophils Percent Auto 2.7 % (1.0-6.0); Hematocrit 39.6 % (35.0-49.0); Hemoglobin 13.4 g/dL (12.0-15.0); Immature Granulocyte Absolute 0.01 K/mm3 (0.00-0.00); Immature Granulocyte Percent A 0.2 % (0.0-0.0); Lymphocytes Absolute Auto 1.91 K/mm3 (1.10-4.50); Lymphocytes Percent Auto 28.8 % (18.0-42.0); Mean Corpuscular HGB Conc 33.8 g/dL (32-36); Mean Corpuscular Hemoglobin 30.5 pg (27.0-31.0); Mean Corpuscular Volume 90.2 fL (78.0-102.0); Mean Platelet Volume 9.8 fl (9.2-11.8); Monocytes Percent Auto 7.5 % (2.0-11.0); Neutrophils Percent Auto 60.2 % (50.0-70.0); Platelet Count Result 262 K/mm3 (150-420); Red Blood Count 4.39 M/mm3 (4.20-5.40); Red Cell Distribution Width 13.2 % (11.6-14.4); White Blood Count 6.6 K/mm3 (4.8-10.8)
[2024-06-29 05:16] LABS: Add Urine Microscopic? NO; Appearance Urine Clear (Clear); Bilirubin Urine Negative (Negative); Blood Urine Negative (Negative); Color Urine Light Yellow (Yellow); Glucose Urine UA Negative (Negative); Ketones Urine Negative (Negative); Leukocyte Esterase Ur Negative LEU/UL (Negative); Nitrate Urine Negative (Negative); Protein Urine Negative (Negative); Specific Grav Ur >= 1.030 (1.010-1.020); Urobilinogen Urine 0.2 mg/dL (0.2-1.0); pH Urine 5.5 (5.0-8.0)
[2024-06-29 05:20] LABS: Pregnancy On Board Control Positive; Urine Pregnancy Test Negative
[2024-06-29 05:25] LABS: INR 0.9; Partial Thromboplastin Time 25.9 Sec (23.9-30.70); Prothrombin Time 10.3 Seconds (9.50-12.1)
[2024-06-29 05:36] LABS: Lactic Acid Reflex 0.9 mmol/L (0.4-2.0)
[2024-06-29 05:42] LABS: Alanine Aminotransferase 14 U/L (14-59); Albumin Level 3.5 g/dL (3.4-5.0); Alkaline Phosphatase 59 U/L (46-116); Anion Gap 10 mmol/L (4-12); Aspartate Amino Transferase < 10 U/L (15-37); Bilirubin,Total 0.7 mg/dL (0.00-1.00); Blood Urea Nitrogen 16 mg/dL (7-18); Calcium 8.6 mg/dL (8.5-10.1); Carbon Dioxide 23 mmol/L (21-32); Chloride 105 mmol/L (98-108); Estimated CRCL calculation 82 ml/min; Estimated Glomerular Filt Rate > 60; Glucose 102 mg/dL (70-99); Lipase 61 U/L (16-77); Osmolality Calculated 287 mOsm/kg (285-295); Sodium 138 mmol/L (136-145); Total Protein 6.6 g/dL (6.4-8.2)
[2024-06-29 06:30] VITALS: BP 100/58; RESP 18; O2SAT 98
--- NOTE | 2024-06-29 06:46 | PC.NURSE ---
Pt resting, reports being pain free. Explained wait time due to CT down and trying to send images. Lights dimmed, call mendez at side.
--- NOTE | 2024-06-29 07:02 | PC.NURSE ---
Report given to Mary Tamayo
--- NOTE | 2024-06-29 07:56 | ED.GENADULT ---
HPI - General Adult General Chief complaint: Urogenital-Female Stated complaint: Abd Pain Time Seen by Provider: 06/29/24 04:30 Source: patient Mode of arrival: ambulatory History of Present Illness HPI narrative: per Dr. Dr. Robert Lopez 28-year-old female presents with abdominal pain right lower quadrant with nausea, without fevers diarrhea. No past medical history. Social pain started few hours ago persistent 8/10 stabbing associated with nausea no leaving factors. Location right lower quadrant. Similar symptoms previously no. Past medical history non applicable Family history none social history: Denies alcohol she vapes denies any drugs. Medications none allergies no known drug allergies. Review of systems all systems reviewed and negative except as indicated per Dr. Dr. Robert Lopez MD complaint: abdominal pain Related Data Allergies Allergy/AdvReac Type Severity Reaction Status Date / Time No Known Allergies Allergy Verified 07/19/22 12:21 Review of Systems Review of Systems: All systems reviewed & are unremarkable except as noted in HPI and below PMFSH Past Medical History Medical History Anxiety Social History Social History (Updated 07/19/22 @ 12:30 by Lali Martinez, BUSINESS OWNER/ENGINEER, BC) Smoking status: Current every day smoker Tobacco type: e-cigarettes/vaping Gender identity (if verbalized by the patient): Female Exam Narrative: vital signs stable appearance normal neck normal cardiopulmonary normal breath sounds, GI/ normal bowel sounds tenderness the right lower quadrant guarding. Back normal skin normal extremities normal neurological gait is normal psychiatric oriented x3 Course Vital Signs Vital signs: Vital Signs Temperature 36.6 C 06/29/24 04:26 Pulse Rate 70 06/29/24 04:26 Respiratory Rate 20 06/29/24 04:26 Blood Pressure 127/92 H 06/29/24 04:26 Pulse Oximetry 100 06/29/24 04:26 Oxygen Delivery Room Air 06/29/24 04:26 Temperature 36.6 C 06/29/24 04:26 Pulse Rate 90 06/29/24 08:05 Respiratory Rate 16 06/29/24 08:05 Blood Pressure 101/82 06/29/24 08:05 Pulse Oximetry 100 06/29/24 08:05 Oxygen Delivery Room Air 06/29/24 08:05 Medical Decision Making [facility] Narrative Medical decision making narrative: Patient placed in room: 6 ? History and physical was performed. CT abdomen pelvis with IV contrast: Radiology had difficulty getting the CT sent via PACS 2 stat rad :9.6 x 9.0 x 9.0 cm simple cystic appearing mass in the midline in the pelvis, as above. Precise site of origin is unclear, with difficult evaluation due to midline positioning and paucity of intraabdominal fat. Diagnostic considerations include ovarian cyst (left or right) versus possibility of some sort of duplication cyst. Consider pelvic ultrasound to attempt to identify normal ovaries, as indicated. Normal lactic acid lipase test coags, CBC CMP. Blood cultures were sent . 8:34 a.m. patient just told the nurse she started her period just now. Independent Historian: patient External Source Review: Differential Dx includes but not limited to: Appendicitis bowel obstruction irritable bowel syndrome ruptured ovarian cyst Medications were Reviewed: home meds reviewed Medications given: patient given a L of normal saline Zofran 4 morphine 4 mg. At 7:00 a.m. 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 Dr. Robert Lopez patient's pain was at a 0 Independently Interpreted by me: labs independently interpreted by me. Shared decision Making: evaluation was discussed all questions were asked and answered and patient agreed with the plan. Tylenol ibuprofen and tramadol 50 t.i.d. p.r.n. pain follow-up with her primary care provider and/or family resource coordinator. Return if she gets worse or develops any new symptoms. Social Situation Impacting Patients Care: Discussed with Dr. Robert Lopez at change of shift DISCHARGE DIAGNOSIS: abdominal pain pelvic cyst DISPOSITION : discharge home CONDITION AT DISCHARGE: stable improved Vital Signs Vital Signs: Vital Signs Temperature 36.6 C 06/29/24 04:26 Pulse Rate 70 06/29/24 04:26 Respiratory Rate 20 06/29/24 04:26 Blood Pressure 127/92 H 06/29/24 04:26 Pulse Oximetry 100 06/29/24 04:26 Oxygen Delivery Room Air 06/29/24 04:26 Temperature 36.6 C 06/29/24 04:26 Pulse Rate 90 06/29/24 08:05 Respiratory Rate 16 06/29/24 08:05 Blood Pressure 101/82 06/29/24 08:05 Pulse Oximetry 100 06/29/24 08:05 Oxygen Delivery Room Air 06/29/24 08:05 Lab Data 06/29/24 05:01 06/29/24 05:01 Labs: Lab Results 06/29/24 Range/Units 05:01 WBC 6.6 (4.8-10.8) K/mm3 RBC 4.39 (4.20-5.40) M/mm3 Hgb 13.4 (12.0-15.0) g/dL Hct 39.6 (35.0-49.0) % MCV 90.2 (78.0-102.0) fL MCH 30.5 (27.0-31.0) pg MCHC 33.8 (32-36) g/dL RDW 13.2 (11.6-14.4) % Plt Count 262 (150-420) K/mm3 MPV 9.8 (9.2-11.8) fl Immature Gran % (Auto) 0.2 H (0.0-0.0) % Neut % (Auto) 60.2 (50.0-70.0) % Lymph % (Auto) 28.8 (18.0-42.0) % Swisher % (Auto) 7.5 (2.0-11.0) % Eos % (Auto) 2.7 (1.0-6.0) % Baso % (Auto) 0.6 (0.0-1.0) % Lymph # (Auto) 1.91 (1.10-4.50) K/mm3 Swisher # (Auto) 0.50 (0.10-0.90) K/mm3 Eos # (Auto) 0.18 (0.02-0.50) K/mm3 Baso # (Auto) 0.04 (0.00-0.10) K/mm3 Abs Immat Gran (auto) 0.01 H (0.00-0.00) K/mm3 Absolute Neuts (auto) 4.00 (1.70-7.20) K/mm3 Absolute Nucleated RBC 0.00 (0.00-0.00) K/mm3 Nucleated RBC % 0.0 (0-0.0) % PT 10.3 (9.50-12.1) Seconds INR 0.9 APTT 25.9 (23.9-30.70) Sec Sodium 138 (136-145) mmol/L Potassium 4.0 (3.5-5.1) mmol/L Chloride 105 (98-108) mmol/L Carbon Dioxide 23 (21-32) mmol/L Anion Gap 10 (4-12) mmol/L BUN 16 (7-18) mg/dL Creatinine 0.67 (0.55-1.02) mg/dL Estim Creat Clear Calc 82 ml/min Estimated GFR > 60 (59 - ) Glucose 102 H (70-99) mg/dL Calculated Osmolality 287 (285-295) mOsm/kg Lactic Acid 0.9 (0.4-2.0) mmol/L Calcium 8.6 (8.5-10.1) mg/dL Total Bilirubin 0.7 (0.00-1.00) mg/dL AST < 10 L (15-37) U/L ALT 14 (14-59) U/L Alkaline Phosphatase 59 (46-116) U/L Total Protein 6.6 (6.4-8.2) g/dL Albumin 3.5 (3.4-5.0) g/dL Lipase 61 (16-77) U/L Urine Color Light yellow (Yellow) Urine Appearance Clear (Clear) Urine pH 5.5 (5.0-8.0) Ur Specific Mikana >= 1.030 H (1.010-1.020) Urine Protein Negative (Negative) Urine Glucose (UA) Negative (Negative) Urine Ketones Negative (Negative) Ur Blood (Man) Negative (Negative) Urine Nitrate Negative (Negative) Urine Bilirubin Negative (Negative) Urine Urobilinogen 0.2 (0.2-1.0) mg/dL Leukocyte Esterase Rfl Negative (Negative) BA/UL Urine Test Negative Discharge Plan Discharge Clinical Impression: Abdominal pain, Pelvic cyst Patient Disposition: Home, Self-Care Condition: Stable Instructions: Abdominal Pain (ED) Additional Instructions: follow-up with your primary care provider and/or your family resource coordinator. Tylenol and or ibuprofen as needed for pain. Tramadol 50 mg 3 times a day as needed for pain. Return if you get worse or develops any new symptoms. Prescriptions: New tramadol 50 mg tablet 50 mg PO TID PRN (Reason: pain) Qty: 15 0RF Follow-up/Referrals: UNKNOWN,DOCTOR [Primary Care Provider] - Time of Disposition: 08:54
[2024-06-29 08:05] VITALS: BP 101/82; PULSE 90; RESP 16; O2SAT 100
--- NOTE | 2024-06-30 12:28 | PC.NURSE ---
PRELIMINARY BLOOD CULTURE: NO GROWTH TO DATE
== END 2024-06-29 08:55 | disposition home or self-care (01) ==
PROVIDERS: Emergency Medicine; Emergency Provider Emergency Medicine
DX: N94.89 Other specified conditions associated with female genital organs and menstrual cycle (principal); F17.290 Nicotine dependence, other tobacco product, uncomplicated
CPT/HCPCS: 36415; 74177; 80053; 81003; 81025; 83605; 83690; 85025; 85610; 85730; 87040; 96361; 96374; 96375; 99284; J2270; J2405; J7030; Q9967

== ENCOUNTER 2024-09-16 15:46 | Emergency (ER) | payer BC, SELFPAY ==
--- OUTSIDE RECORDS SUMMARY | 2024-09-16 15:49 | XMS_ITS | Encounter Summary ---
Author Organization [facility] Address [address] [place] [address] Care Team Providers Care Director General Name Role Phone Unavailable Primary Care Provider Unavailabl e Reason for Visit * Reason Onset Date Comments Question 09/16/2024 Symptoms before surgery Encounter Details Date Type Department Care Team (Late st Contact Info) Description 09/16/2024 Telephone [facility] Gynecologic Oncology Rajput [address] [place] [address] Blanca Caruso MD [address] [place] [address] Question (Symptoms before surgery) Social History Tobacco Use Types Packs/Day Years Used Date Smoking Tobacco: Never Alcohol Use Standard Drinks/Week Comments Yes 0 (1 standard drink = 0.6 oz pur e alcohol) rarely/socially Comments No Sex and Gender Information Value Date Recorded Sex Assigned at Not on file Legal Sex Female 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 Patient advised that if she is afebrile, has negative COVID and/or flu swab, and symptoms do not worsen surgery may proceed as planned. Patient denied fever or worsening of symptoms, reported having a runny nose last week that has resolved, mild cough present now. Patient advised to swab for COVID and flu and reports results. Patient verbalized understanding, no new questions at this time. ERTIBLE POWER SHOVEL OPERATOR documented in this encounter Plan of Treatment Upcoming Encounters Date Type Department Care Team (Latest Contact Info) Description 09/18/2024 1:35 PM CONVERTIBLE POWER SHOVEL OPERATOR Hospital Encounter [facility] Operating Room [address] [place] [id number] Blanca Caruso MD [address] [place] [address] Pelvic mass 09/18/2024 1:35 PM CONVERTIBLE POWER SHOVEL OPERATOR - 09/18/2024 5:35 PM CONVERTIBLE POWER SHOVEL OPERATOR Surgery [facility] Operating Room [address] [place] [address] Blanca Caruso MD [address] [place] [address] SALPINGO-OOPHORECTO MY ROBOTIC XI 10/06/2024 1:45 PM CONVERTIBLE POWER SHOVEL OPERATOR Office Visit [facility] Gynecologic Oncology Rajput [address] [place] [address] Blanca Caruso MD [address] [facility] [facility] [place] [address] Scheduled Procedures Name Priority Associated Diagnoses Date/Ti me SALPINGO-OOPHORECTOMY ROBOTIC XI Pelvic mass 09/18/2024 1:35 PM CONVERTIBLE POWER SHOVEL OPERATOR documented as of this encounter Visit Diagnoses Not on filedocumented in this encounter
--- OUTSIDE RECORDS SUMMARY | 2024-09-16 15:49 | XMS_ITS | Data Portability ---
Author Organization [facility] Address [address] [place] [address] Assessment No assessment recorded. Plan of Treatment Reminders Order Date Submit Date Provider Last Modified By Organization Details Last Modified Time Details Appointments None recorded. Lab hbcab (hepatitis B core Ab) igm, serum 2023 024 [facility] (Lab), [address], [place], [address], 4 05:01:33 HBsAg (hepatitis B surface Ag), serum 2023 024 [facility] (Lab), [address], [place], [address], 4 05:01:33 hepatitis C virus Ab, serum 2023 024 [facility] (Lab), [address], [place], [address], 4 05:01:33 unlisted lab - HIV 1/2 antigen/ant ibody, reflex confirmatio n 2023 024 [facility] (Lab), [address], [place], [address], 4 05:01:33 RPR (rapid plasma reagin), serum 2023 024 [facility] (Lab), [address] [place], [address], 4 05:01:33 test, urine 2023 024 [facility], [address], [address], [place], [address], 4 17:09:16 ca 125, serum 2023 024 [facility] (Lab), [address], [place], [address], 4 07:24:27 cancer Ag 19-9, serum or plasma 2023 024 [facility] (Lab), [address], [place], [address], 4 07:24:27 carcinoembr yonic Ag, quant, serum or plasma 2023 024 [facility] (Lab), [address], [place], [address], 4 07:24:28 Referral None recorded. Procedures None recorded. Surgeries None recorded. Imaging US, pelvis 2023 024 jyothi [facility], [address], [address], [place], [address], 4 10:14:29 Medication Orders None recorded. Patient TargetsNo targets recorded. Patient InstructionsNo instructions recorded. Reason for Referral None Reported. Results Created Date Observation Date Name Description Value Unit Range Abnormal Flag Note LastModifiedBy Organization Detail LastModifiedTime 10/16/19 24 10/16/2023 CT/GC AND TRICH OMONA S VAGIN ARABELLA (RRNA ), SWAB chlamydia trachomatis, PCR Negati ve negati ve Not Available [facility] (Lab) [address] , [place], [address], 10/17/2023 16:07:23 10/16/19 24 10/16/2023 CT/GC AND TRICH OMONA S VAGIN ARABELLA (RRNA ), SWAB neisseria gonorrhoeae, PCR Negati ve negati ve Not Available [facility] (Lab) [address], [place], [address], 10/17/2023 16:07:23 10/16/19 24 10/16/2023 CT/GC AND TRICH OMONA S VAGIN ARABELLA (RRNA ), SWAB trichomonas vaginalis ribosomal RNA (rrna) Negati ve negati ve Not Available [facility] (Lab) [address], [place], [address], 10/17/2023 16:07:23 10/16/19 24 10/16/2023 pregn aimee test, urine HCG negati ve Not Available [facility] [address], [place], [address], 10/16/2023 17:09:05 07/18/20 24 07/18/2024 CARBO HYDRA TE ANTIG EN 19-9 Ca 19-9 41 U/mL 0-35 high This assay was perfo rmed using [employer] n reage nts and test kits. Value s obtai kelly with other assay metho ds or kits canno t be used inter [facility] . Not Available [facility] (Lab) [address] [place], [address], 07/19/2024 07:24:27 07/18/20 24 07/18/2024 CA 125 Ca 125 16.0 units /mL 0.0-35 .0 This assay was perfo rmed using [employer] reage nts and test kits. Value s obtai kelly with other assay metho ds or kits canno t be used inter [facility] . Not Available [facility] (Lab) [address] [facility] [address], [place], [address], 07/19/2024 07:24:27 07/18/20 24 07/18/2024 CEA cea <0.6 NG/mL 0.0-3. 0 This assay was perfo rmed using [employer] reage nts and test kits. Value s obtai kelly with other assay metho ds or kits canno t be used inter [facility] . Not Available [facility] (Lab) [address], [place], [address], 07/19/2024 07:24:28 07/24/20 24 07/24/2024 US, pelvi s No observ ation record ed. [place] [address], [place], [address], 07/24/2024 18:42:34 07/24/20 24 07/24/2024 US, pelvi s No observ ation record ed. [facility] [address], [place], [address], 07/29/2024 14:26:46 Result Notes None recorded. Procedures Surgical History Date Name Laterality Status Provider Name and Address Organization Details Recorded Time 2023 Date of Last Pap Smear completed Renetta Coy [facility] 10/16/2023 16:37:26 Imaging Results Imaging Date Name Status [facility] Details LastModified Time 07/24/2024 US, pelvis completed [place] [address], [place], [address], 07/24/2024 18:42:34 07/24/2024 US, pelvis completed [facility] [address], [place], [address], 07/29/2024 14:26:46 Procedure Notes None recorded. Medical Equipment None Reported. Allergies No known drug allergies Medications Name Sig Start Date Stop Date Status Note LastModified by Organization Details LastModified Time hydrocodone 5 mg-acetamino phen 325 mg tablet 07/18 completed Not Available Not Available Not Available metronidazol e 500 mg tablet TAKE 1 TABLET BY MOUTH TWICE A DAY FOR 14 DAYS 10/15 completed Not Available Not Available Not Available aspirin 81 mg tablet,delay ed release TAKE 1 TABLET TWICE DAILY UNTIL ALL TAKEN active Not Available Not Available No t Available tramadol 50 mg tablet TAKE 1 TABLET BY MOUTH THREE TIMES DAILY NEEDED FOR PAIN active Not Available Not Available No t Available cephalexin 500 mg capsule TAKE 1 CAPSULE BY MOUTH EVERY 8 HOURS FOR 10 DAYS 07/18 completed Not Available Not Available Not Available ondansetron 4 mg disintegrati ng tablet TAKE 1 TABLET BY MOUTH EVERY 6 HOURS NEEDED FOR NAUSEA/V OMITING active Not Available Not Available No t Available doxycycline hyclate 100 mg tablet TAKE 1 TABLET BY MOUTH TWICE A DAY FOR 14 DAYS 10/15 completed Not Available Not Available Not Available amoxicillin 875 mg-potassium clavulanate 125 mg tablet TAKE 1 TABLET BY MOUTH EVERY 12 HOURS FOR 7 DAYS 07/18 completed Not Available Not Available Not Available Vitals Date Recorded Body height Body mass index (BMI) Body weight Systolic blood pressure Diastolic blood pressure Provider Name and Address Organization Details Last Updated DateTime 10/16/2023 167.64 cm 18.4 kg/m2 82319.53 g 107 mm[Hg] 62 mm[Hg] Renetta Coy [facility] 16:37:14 Date Recorded Body height Body mass index (BMI) Body weight Systolic blood pressure Diastolic blood pressure Provider Name and Address Organization Details Last Updated DateTime 07/18/2024 167.64 cm 17.8 kg/m2 73707.16 g 126 mm[Hg] 74 mm[Hg] Elizabeth Davide [facility] 14:36:45 Social History Question Answer Notes LastModified by Organizat ion Details LastModified Time Tobacco Smoking Status Never Smoker Renetta Coy [facility] 10/16/2023 16:38:25 What Is Your Level Of Alcohol Consumption? Occasional Information not available 10/16/2023 How Many Years Have You Consumed Alcohol? 6 Information not available 10/16/2023 Are You Blind Or Do You Have Difficulty Seeing? No Information not available 10/16/2023 What Is Your Level Of Caffeine Consumption? Moderate Information not available 10/16/2023 How Much Tobacco Do You Chew? None Information not available 10/16/2023 In The 14 Days Before Symptom Onset, Have You Had Close Contact With A Laboratory-confir med COVID-19 While That Case Was Ill? No Information not available 10/16/2023 In The 14 Days Before Symptom Onset, Have You Had Close Contact With A Person Who Is Under Investigation For COVID-19 While That Person Was Ill? No Information not available 10/16/2023 Have You Been To An Area Known To Be High Risk For COVID-19? No Information not available 10/16/2023 Are You Deaf Or Do You Have Serious Difficulty Hearing? No Information not available 10/16/2023 What Type Of Diet Are You Following? REGULAR Information not available 10/16/2023 What Is The Highest Grade Or Level Of School You Have Completed Or The Highest Degree You Have Received? 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 No Information not available 10/16/2023 Do You Use Protection During Sex? Usually Information not available 10/16/2023 Do You Use Your Seat Belt Or Car Seat Routinely? Yes Information not available 10/16/2023 Do You Have Smoke And Carbon Monoxide Detectors In Your Home? Yes Information not available 10/16/2023 How Much Tobacco Do You Smoke? No Information not available 10/16/2023 Do You Feel Stressed (tense, Restless, Nervous, Or Anxious, Or Unable To Sleep At Night)? [id number] Information not available 10/16/2023 Do You Use Any Illicit Or Recreational Drugs? Yes Information not available 10/16/2023 Do You Use Sunscreen Routinely? Yes Information not available 10/16/2023 Have You Used IV Drugs? No Information not available 10/16/2023 Sex: Unknown Functional Status Question Answer Note LastModified by Organization D etails LastModified Time Are you able to walk? YESWOREST Information not available 10/16/2023 What is your exercise level? Moderate Information not available 10/16/2023 Mental Status None recorded. Family History Relationship Description Onset Age of this Age Resolved Age Notes LastModified by Organization Details LastModified Time Unspecified Relation Family history unknown [email or web address] Not available 2023 17:27:57 Mother Malignant tumor of ovary [email or web address] Not available 2023 14:38:00 Medical History Condition Response Allergies (Food, seasonal, environmental ) N Other N Blood Transfusion N Drug/Latex Allergies/Reactions N Breast Cancer N Dermatologic Disorders N Lung Disease N Defects or Inherited Disease N Breast Problem N Gestational Diabetes N Hematologic disorders N Anesthesia Complications N History of STI N Deep Vein Thrombosis N Polycystic ovary syndrome N Anxiety Disorder N Autoimmune disease N Arthritis N Infertility N Polyps N Acid Reflux (GERD) N History of abnormal pap N Cancer N Stroke N Varicosities N Neurologic/Epilepsy N Endometriosis N High Cholesterol N Headaches N Fibromyalgia N Kidney Disease N Heart Problems N Kidney or Bladder Problems N Thyroid Problems N GI Problems N Eating Disorder N Anemia N Art (IVF or FET) N Psychiatric Illness N Ovarian Cancer N Diabetes N Pulmonary (TB, Asthma) N Hepatitis/Liver Disease N No Past Medical History N Eczema N Urinary Tract Infection N Abuse/Domestic Violence N Asthma N Trauma/Violence N Depression/ depression N Heart Disease N Pre-Eclampsia N Hypertension N Osteoporosis N Thrombophilias N Gynecological History Statement/Question Response Date of LMP 07/04/2024 On BCP's at Conception? N N Was last menstrual period normal N STIs/STDs N HPV Vaccine N Duration of Flow (days) 6 Current Control Method None Are cycles usually normal Y Frequency of Cycle (Q days) 22 Sexually Active? N Condoms Age of first menstrual cycle 16 Date of Last Pap Smear 2023 Sexual Problems? Y Desired Control Method Condoms LMP Definite N Obstetrics History GPAL:G 0 P 0 0 0 0 Past Encounters Encounter ID Performer Location Encounter Start Date Encounter Closed Date Diagnosis/Indication Diagnosis SNOMED-CT Code Diagnosis ICD10 Code Diagnosis Note [id number] TONY Hernadez [facility] [address] [address] 10/16/2023 16:27:17 10/16/2023 17:14:33 Venereal disease screening 020666064 Z11.3 Irregular periods 121652 07 N92.6 UPT (-)gc/ct/t rich testing sent (LEV for recent (+) trichomona s)HIV/Hep B&C/Syphil is testing ordered per pt requestDis cussed common to have spotting/a n irregular cycle following recent Plan B use. Encouraged to track cycles and return if irregulari ties continueDi scussed BC options - declined at this timesafe sexual practices discussed, condom use encouraged RTC for WWE or sooner if needed Time spent in visit is a total of 30mins with at least 50% of visit consisting of counseling and review of plan of care. Contracept ion care management 832687297 Z30.9 Infection by Trichomonas 93972840 A59.9 Sexually t ransmitted infectious disease 2274822 A64 [id number] RITO SANDHU MD [facility] [address] [address] 07/18/2024 14:27:40 07/18/2024 15:07:06 Cyst of right ovary [id number] 7047399 N83.201 - patient reports sudden onset RLQ pain about 2 weeks ago, was seen in ER and told she had an 8cm R ovarian cyst- no hx of similar episodes- quick relief of pain after morphine, no further episodes- reports hx of ovarian cancer in mother at age 35, unsure if she received genetic testing, will ask- will check tumor markers and repeat pelvic US- f/u after labs and US to discuss next steps- pain and torsion precaution s given [id number] Nicolle Brown [facility] [address] [address] 07/24/2024 17:27:40 07/25/2024 10:14:28 Cyst of right ovary [id number] 5824740 N83.291 R10.2 Health Concerns Section Related Observation LastModified by Organization Detai ls LastModified Time None Recorded Concern Status LastModified by Organization Details LastModified Time None Recorded Advance Directives Directive None Recorded Payers Encounter Date Sequence Insurance Name Policy Number Policy Rodriguez Covered Member ID Rodriguez Member ID Guarantor Name 10/16/2023 1 [place] [id number] Sergio Lion Daily [id number] [place] Daily 07/18/2024 1 [place] [id number] [place] R Daily [id number] [employer] [employer] 07/24/2024 1 [place] [id number] [place] R Daily [id number] [place] Daily Notes Date Note Type Note Provider Name and Address Organization Details Recorded Time 10/16/2023 text/html 28yo [id number] for new patient consult(+) trichomonas about 2 months ago, diagnosed at ED visit (was experiencing discharge and itching at that time). Completed entire metronidazole course. Partner was treated but no longer with this partner.No vaginal discharge/odors/itc nahun/irritation/or pelvic pain todayHad a normal period 09/21, took a Plan B around 09/25, then started light spotting on 10/02 that lasted about 2 weeks.has taken at home UPTs, all negative no h/o abnormal papslast pap 07/2023 - normal per pt TONY Hernadez [address], [place], [address], [facility] 10/16/2023 17:09:50 07/18/2024 text/html Patient presents to discuss recent pelvic pain episode. She was seen 2-3 weeks ago due to waking up in the middle of the night with excruciating pain. She went to the ER and was told she had a 8cm right ovarian cyst. Pain resolved quickly after pain meds. She has not had any other episodes similar to this. She denies irregular periods or large ovarian cysts in the past. RITO SANDHU MD [address], [place], [address], [facility] 07/18/2024 14:58:51 OBGyn Episode No OBEpisode recorded.
--- OUTSIDE RECORDS SUMMARY | 2024-09-16 15:49 | XMS_ITS | Clinical Summary ---
Author Organization [facility] Address [address] [place] [address] Care Team Providers Care Director Of Purchasing Name Role Phone None, Provider MD Primary Care Provider Unavaila ble Allergies No known active allergies Medications No known medications Social History Tobacco Use Types Packs/Day Years Used Date Smoking Tobacco: Every Day Cigarettes Smokeless Tobacco: Never Alcohol Use Standard Drinks/Week Comments No 0 (1 standard drink = 0.6 oz pur e alcohol) AUDIT-C Answer Date Recorded Frequency of Alcohol Consumption Never 03/29/2019 Average Number of Drinks Not on file 019 Frequency of Binge Drinking Not on file 03/13 Comments Unknown Sex and Gender Information Value Date Recorded Sex Assigned at Not on file Legal Sex Female 5:15 PM CDT Gender Identity Not on file Sexual Orientation Not on file Last Filed Vital Signs Vital Sign Reading Time Taken Comments Blood Pressure 123/64 03/29/2019 11:00 PM CDT Pulse 62 03/29/2019 11:00 PM CDT Temperature 36.2 ??C (97.2 ??F) 03/29/2019 8:10 PM CD T Respiratory Rate 16 03/29/2019 11:00 PM CDT Oxygen Saturation 99% 03/29/2019 11:00 PM CDT Inhaled Oxygen Concentration - - Weight 49.9 kg (110 lb) 03/29/2019 8:10 PM CDT Height 165.1 cm (5' 5 ) 03/29/2019 8:10 PM CDT Body Mass Index 18.3 03/29/2019 8:10 PM CDT Plan of Treatment Health Maintenance Due Date Last Done Comments Cervical Cancer Screening Pa p Smear (Age 21 to 29) Every 3 Years 1996 Cervical Cancer Screening 1996 Annual Physical 1999 Hepatitis C 2014 DTaP, Tdap and Td Vaccines ( 1 - Tdap) 2015 Hepatitis B Vaccines (1 of 3 - 19+ 3-dose series) 2015 COVID-19 Vaccine (2023-2 5 season) 2024 Influenza Adult (#1) 2024 HPV Vaccines Aged Out No longer eligi ble based on patient's age to complete this topic Meningococcal B Vaccine Aged Out No l onger eligible based on patient's age to complete this topic Meningococcal Vaccine Aged Out No ivana antonino eligible based on patient's age to complete this topic Pneumococcal Vaccine: Pediat rics (0 to 5 Years) and At-Risk Patients (6 to 64 Years) Aged Out No longer eligible b ased on patient's age to complete this topic RSV Immunizations Under 20 Months Aged Out No longer eligible based on patient's age to complete this topic Care Teams Director Of Purchasing Relationship Specialty Start Date End Date None, Provider, PCP - General 03/29/19
--- OUTSIDE RECORDS SUMMARY | 2024-09-16 15:49 | XMS_ITS | Clinical Summary ---
Author Organization [facility] Care Team Providers Care Tube Cutter Name Role Phone Unavailable Primary Care Provider Unavailabl e Social History Tobacco Use Types Packs/Day Years Used Date Smoking Tobacco: Never Assessed Comments Unknown Sex and Gender Information Value Date Recorded Sex Assigned at Not on file Legal Sex Female 1:[address] BAILIFF OR SHERIFF Gender Identity Not on file Sexual Orientation Not on file Plan of Treatment Health Maintenance Due Date Last Done Comments Hepatitis C Virus (HCV) Screening 1996 TdaP Immunization 1996 Pap Smear 2017 Influenza Immunization (#1) 2024 SARS-COV-2 Immunization ( season) 2024 Respiratory Syncytial Virus (RSV) Immunization (Adult) (1 - 1-dose 75+ series) 2071 Hepatitis B Immunization Completed 998, 1996, 1996 DTaP/Tdap/Td Immunization Discontinued 2001, 03/25/1999, 08/09/1998, Additional history exists Meningococcal Immunization (ACWY) Aged Out No longer eligible based on patient's age to complete this topic Pneumococcal Immunization Combined Aged Out No longer eligible based on patient's age to complete this topic Rotavirus Immunization Aged Out No lo nger eligible based on patient's age to complete this topic
--- OUTSIDE RECORDS SUMMARY | 2024-09-16 15:49 | XMS_ITS | Patient Health Summary ---
Author Organization [facility] Address [address] [place] [address] Care Team Providers Care Form Builder Name Role Phone Unavailable Primary Care Provider Unavailabl e Note from [facility],non-owned Affiliates and Associated Physician Practices is amultiple site organization consisting of ambulatory clinics and hospital sitesin [place], [place], [place] and [place]. This disclosure is being madepursuant to the Care Everywhere program and may not contain all information available regarding this patient. Last updated 18.[facility] Allergies No known active allergies Medications * Be aware that medications may not be up to date on this document. Alwaysverify current medications with the patient. * ondansetron, disintegrating, (Zofran ODT) 4 MG tablet(Started 07/30/2023) Take 1 (one) tablet by mouth every 8 hours as needed for Nausea/Vomiting Allow tablet to dissolve on the tongue Social History Tobacco Use Types Packs/Day Years Used Date Smoking Tobacco: Never Assessed Sex and Gender Information Value Date Recorded Sex Assigned at Not on file Gender Identity Not on file Sexual Orientation Not on file Last Filed Vital Signs Vital Sign Reading Time Taken Comments Blood Pressure 129/94 07/30/2023 2:37 PM CHIEF RELAY TESTER Pulse 84 07/30/2023 12:06 PM CHIEF RELAY TESTER Temperature 36.6 ??C (97.8 ??F) 07/30/2023 12:[address] Respiratory Rate 20 07/30/2023 12:06 PM CHIEF RELAY TESTER Oxygen Saturation 99% 07/30/2023 2:37 PM CHIEF RELAY TESTER Inhaled Oxygen Concentration - - Weight 50.3 kg (111 lb) 07/30/2023 12:06 PM CHIEF RELAY TESTER Height 167.6 cm (5' 6 ) 07/30/2023 12:06 PM CHIEF RELAY TESTER Body Mass Index 17.92 07/30/2023 12:06 PM CHIEF RELAY TESTER Procedures * TRICHOMONAS RAPID TEST(Performed 07/30/2023) * CHLAMYDIA + GC AMPLIFIED PROBE(Performed 07/30/2023) * BACTERIAL VAGINOSIS + YEAST SMEAR(Performed 07/30/2023) * URINALYSIS REFLEX MICROSCOPIC REFLEX CULTURE(Performed 07/30/2023) * HCG BETA BLOOD QUANTITATIVE(Performed 07/30/2023) * LIPASE BLOOD(Performed 07/30/2023) * COMPREHENSIVE METABOLIC PANEL(Performed 07/30/2023) * CBC W AUTO DIFFERENTIAL(Performed 07/30/2023) Results * (ABNORMAL) BACTERIAL VAGINOSIS + YEAST SMEAR (07/30/2023 1:29 PM CHIEF RELAY TESTER) Clue Cells No Clue Cells Seen No Clue Cells Seen 07/30/2023 3:57 PM CHIEF RELAY TESTER [facility] MICROBIOLOGY Yeast No Yeast Seen No Yeast Seen 07/30/20 3:57 PM CHIEF RELAY TESTER [facility] MICROBIOLOGY Debbie Score Debbie Score 4-6: Consistent with transition from normal vaginal susana(A) Debbie Score 0-3: Consistent with normal vaginal susana 07/30/2023 3:57 PM CHIEF RELAY TESTER [facility] MICROBIOLOGY Microbiology ENTIRE VAGINA / Unknown Collection / Unknown 07/30/2023 1:29 PM CHIEF RELAY TESTER 07/30/2023 2:14 PM CHIEF RELAY TESTER Ada Landon PA-C LAB - MICROBIOLOGY ORDERABLES [facility] MICROBIOLOGY [address] [phone] * CHLAMYDIA + GC AMPLIFIED PROBE (07/30/2023 1:29 PM CHIEF RELAY TESTER) Chlamydia Amplified Probe Negative Negative 07/30/2023 7:24 PM CHIEF RELAY TESTER [facility] MICROBIOLOGY GC Amplified Probe Negative Negative 07/30/2023 7:24 PM CHIEF RELAY TESTER [facility] MICROBIOLOGY Microbiology ENTIRE ENDOCERVIX / Unknown Collection / Unknown 07/30/2023 1:29 PM CHIEF RELAY TESTER 07/30/2023 2:14 PM CHIEF RELAY TESTER Narrative [facility] MICROBIOLOGY - 07/30/2023 7:24 PM CHIEF RELAY TESTER Results based on detection/no detection of ribosomal RNA by amplified method. Ada Landon PA-C LAB - MICROBIOLOGY ORDERABLES [facility] MICROBIOLOGY [address] [place] [address], [facility] [phone] * (ABNORMAL) TRICHOMONAS RAPID TEST (07/30/2023 1:29 PM CHIEF RELAY TESTER) Trichomonas Rapid Test Positive( A) Negative 07/30/2023 2:10 PM CHIEF RELAY TESTER [facility] Microbiology VAGINAL SWAB / Unknown Collection / Unknown 07/30/2023 1:29 PM CHIEF RELAY TESTER 07/30/2023 1:43 PM CHIEF RELAY TESTER Ada Landon PA-C LAB - MICROBIOLOGY ORDERABLES Performing Organization Address City/[facility]/ZIP Co de Phone Number [facility] [address] [place] [address] * URINALYSIS REFLEX MICROSCOPIC REFLEX CULTURE (07/30/2023 1:20 PM CHIEF RELAY TESTER) Color UA Yellow Straw, Yellow 07/30/2023 1:29 PM CHIEF RELAY TESTER [facility] Clarity UA Clear Clear 07/30/2023 1:29 PM CHIEF RELAY TESTER [facility] Glucose UA Negative Negative 07/30/2023 1:29 PM CHIEF RELAY TESTER [facility] Bilirubin UA Negative Negative 07/30/2023 1:29 PM CHIEF RELAY TESTER [facility] Ketone UA Negative Negative 07/30/2023 1:29 PM CHIEF RELAY TESTER [facility] Specific Thornton UA 1.021 1.005 - 1.030 07/30/2023 1:29 PM CHIEF RELAY TESTER [facility] Blood UA Negative Negative 07/30/2023 1:29 PM CHIEF RELAY TESTER [facility] pH UA 6.0 5.0 - 8.0 pH 07/30/2023 1:29 PM CHIEF RELAY TESTER [facility] Protein UA Negative Negative 07/30/2023 1:29 PM CHIEF RELAY TESTER [facility] Urobilinogen UA Negative Negative mg/dL 07/30/2023 1:29 PM CHIEF RELAY TESTER [facility] Nitrite UA Negative Negative 07/30/2023 1:29 PM CHIEF RELAY TESTER [facility] Leukocyte UA Negative Negative 07/30/2023 1:29 PM [facility] Urine Microscopy Urine microscopy not indicated 07/30/2023 1:29 PM [facility] Reflex Status Culture not indicated 07/30/2023 1:29 PM [facility] Urine URINE SPECIMEN OBTAINED BY CLEAN CATCH PROCEDURE / Unknown Collection / Unknown 07/30/2023 1:20 PM CHIEF RELAY TESTER 07/30/2023 1:24 PM CHIEF RELAY TESTER [facility] - 07/30/2023 1:29 PM CHIEF RELAY TESTER Ankita Price MD LAB - URINALYSIS ORD ERABLES [facility] [address] [place] [address] * CBC W AUTO DIFFERENTIAL (07/30/2023 12:20 PM CHIEF RELAY TESTER) WBC 10.2 4.0 - 10.7 x10E9/L 07/30/2023 12:31 PM [facility] RBC Count 4.88 3.90 - 5.20 x10E12/L 07/30/2023 12:31 PM [facility] Hemoglobin 15.0 11.9 - 15.8 g/dL 07/30/2023 12:31 PM [facility] Hematocrit 43.2 34.8 - 46.1 % 07/30/2023 12:31 PM [facility] MCV 88.5 80.0 - 98.0 fL 07/30/2023 12:31 PM [facility] MCH 30.7 26.7 - 33.6 pg 07/30/2023 12:31 PM [facility] MCHC 34.7 31.7 - 36.3 g/dL 07/30/2023 12:31 PM [facility] RDW-CV 12.6 11.3 - 14.8 % 07/30/2023 12:31 PM [facility] Platelet Count 300 150 - 420 x10E9/L 07/30/2023 12:31 PM [facility] MPV 9.7 7.8 - 11.4 fL 07/30/2023 12:31 PM [facility] Neutrophil % 60.1 41.0 - 74.0 % 07/30/2023 12:31 PM [facility] Lymphocyte % 30.5 17.0 - 47.0 % 07/30/2023 12:31 PM [facility] Monocyte % 7.2 3.0 - 11.0 % 07/30/2023 12:31 PM [facility] Eosinophil % 1.5 0.0 - 7.0 % 07/30/2023 12:31 PM [facility] Basophil % 0.5 0.0 - 1.6 % 07/30/2023 12:31 PM [facility] Immature Granulocytes % 0.2 0.0 - 1.0 % 07/30/2023 12:31 PM [facility] Neutrophil Absolute 6.13 1.60 - 7.50 x10E9/L 07/30/2023 12:31 PM [facility] Lymphocyte Absolute 3.11 1.00 - 4.40 x10E9/L 07/30/2023 12:31 PM [facility] Monocyte Absolute 0.73 0.15 - 1.00 x10E9/L 07/30/2023 12:31 PM [facility] Eosinophil Absolute 0.15 0.00 - 0.60 x10E9/L 07/30/2023 12:31 PM [facility] Basophil Absolute 0.05 0.00 - 0.13 x10E9/L 07/30/2023 12:31 PM [facility] Blood BLOOD SPECIMEN / Unknown Venipuncture / Unknown 07/30/2023 12:20 PM CHIEF RELAY TESTER 07/30/2023 12:26 PM [facility] Ankita Price MD LAB - HEMATOLOGY ORD ERABLES [facility] [address] [place] [address] * (ABNORMAL) COMPREHENSIVE METABOLIC PANEL (07/30/2023 12:20 PM [facility]) [facility] Glucose 82 70 - 105 mg/dL 07/30/2023 12:48 PM [facility] Sodium 142 136 - 145 mmol/L 07/30/2023 12:48 PM [facility] Potassium 3.8 3.5 - 5.1 mmol/L 07/30/2023 12:48 PM [facility] Chloride 108(H) 98 - 107 mmol/L 07/30/2023 12:48 PM [facility] CO2 22 22 - 29 mmol/L 07/30/2023 12:48 PM [facility] Calcium 9.6 8.4 - 10.4 mg/dL 07/30/2023 12:48 PM [facility] Anion Gap 12 6 - 16 mmol/L 07/30/2023 12:48 PM [facility] BUN 10 5.3 - 18.7 mg/dL 07/30/2023 12:48 PM [facility] Creatinine 0.73 0.57 - 1.11 mg/dL 07/30/2023 12:48 PM [facility] Alkaline Phosphatase 65 40 - 150 U/L 07/30/2023 12:48 PM [facility] ALT 9 0 - 55 U/L 07/30/2023 12:48 PM [facility] AST 16 5 - 34 U/L 07/30/2023 12:48 PM [facility] Protein Total 7.5 6.4 - 8.3 gm/dL 07/30/2023 12:48 PM [facility] Albumin 4.2 3.4 - 5.0 gm/dL 07/30/2023 12:48 PM [facility] Bilirubin Total 1.5(H) 0.2 - 1.2 mg/dL 07/30/2023 12:48 PM [facility] eGFR by CKD-EPI >90 >=90 mL/min/1.7 3 m2 07/30/2023 12:48 PM [facility] Blood BLOOD SPECIMEN / Unknown Venipuncture / Unknown 07/30/2023 12:20 PM CHIEF RELAY TESTER 07/30/2023 12:26 PM [facility] Ankita Price MD LAB - CHEMISTRY MAC LOVING [facility] Organization Address City/State/ZIP Co de Phone Number [facility] [address] [place] [address] * HCG BETA BLOOD QUANTITATIVE (07/30/2023 12:20 PM CHIEF RELAY TESTER) hCG Quantitative <2.42 mIU/mL 07/30/20 23 1:23 PM CHIEF RELAY TESTER [facility] Blood BLOOD SPECIMEN / Unknown Venipuncture / Unknown 07/30/2023 12:20 PM CHIEF RELAY TESTER 07/30/2023 12:26 PM CHIEF RELAY TESTER Narrative [facility] - 07/30/2023 1:23 PM CHIEF RELAY TESTER ? hCG Reference Range, mIU/mL: ? Males ? 0-2.0 ? Non Females ? 0-6.0 ? Perimenopausal Females ages 41-55* ?0-7.7 ? Postmenopausal Females age >55* ? 0-14 ? Females, Weeks after Last Menstrual Period ?0.2-1 week ? 5-50 ?1 - 2 weeks ?50-500 ?2 - 3 weeks ?100-5000 ?3 - 4 weeks ?500-10,000 ?4 - 5 weeks ?1000-50,000 ?5 - 6 weeks ?10,000-100,000 ?6 - 8 weeks ?15,000-200,000 ?2 - 3 months ? 10,000-100,000 ?Trophoblastic Disease ?>100,000 *In higher than expected hCG in females > age 40, a serum FSH >20 IU/L makes unlikely. Ada Landon PA-C LAB - CHEMISTRY OR DERNUNU Performing Organization Address [facility]/ZIP Co de Phone Number [facility] [address] [place] [address] * LIPASE BLOOD (07/30/2023 12:20 PM CHIEF RELAY TESTER) Lipase 17 <60 U/L 07/30/2023 12:48 PM CHIEF RELAY TESTER [facility] Blood BLOOD SPECIMEN / Unknown Venipuncture / Unknown 07/30/2023 12:20 PM CHIEF RELAY TESTER 07/30/2023 12:26 PM CHIEF RELAY TESTER Ankita Price MD LAB - CHEMISTRY MAC LOVING Performing Organization Address City/[facility]/ZIP Co de Phone Number [facility] [address] [place] [address]
--- OUTSIDE RECORDS SUMMARY | 2024-09-16 15:49 | XMS_ITS | Clinical Summary ---
Author Organization [facility] [employer] Address [address] [place] [address] Care Team Providers Care Print Color Matcher Name Role Phone Unavailable Primary Care Provider Unavailabl e Source Comments [facility] [employer],non-owned Affiliates and Associated Physician Practices is amultiple site organization consisting of ambulatory clinics and hospital sitesin [place], [place], [place] and [place]. This disclosure is being madepursuant to the Care Everywhere program and may not contain all information available regarding this patient. Last updated 18.[employer] [employer] Allergies No known active allergies Medications * Be aware that medications may not be up to date on this document. Alwaysverify current medications with the patient. Medication Sig Dispensed Refills Start Date End Date Status ondansetron, disintegrating, (Zofran ODT) 4 MG tablet Take 1 (one) tablet by mouth every 8 hours as needed for Nausea/Vomiting Allow tablet to dissolve on the tongue 15 tablet 07/30/2023 Active Social History Tobacco Use Types Packs/Day Years Used Date Smoking Tobacco: Never Assessed Sex and Gender Information Value Date Recorded Sex Assigned at Not on file Gender Identity Not on file Sexual Orientation Not on file Last Filed Vital Signs Vital Sign Reading Time Taken Comments Blood Pressure 129/94 07/30/2023 2:37 PM MOVIE WRITER Pulse 84 07/30/2023 12:06 PM MOVIE WRITER Temperature 36.6 ??C (97.8 ??F) 07/30/2023 12:[address] Respiratory Rate 20 07/30/2023 12:06 PM MOVIE WRITER Oxygen Saturation 99% 07/30/2023 2:37 PM MOVIE WRITER Inhaled Oxygen Concentration - - Weight 50.3 kg (111 lb) 07/30/2023 12:06 PM MOVIE WRITER Height 167.6 cm (5' 6 ) 07/30/2023 12:06 PM MOVIE WRITER Body Mass Index 17.92 07/30/2023 12:06 PM MOVIE WRITER Plan of Treatment Health Maintenance Due Date Last Done Comments PAP SMEAR 1996 HIV SCREENING 2011 HEPATITIS C SCREENING 07/19/2014 DTAP/TDAP/TD VACCINES (1 - Tdap) 2015 HEPATITIS B VACCINE (1 of 3 - 19+ 3-dose series) 2015 COVID-19 VACCINE (1 - 2023-2 5 season) 2024 INFLUENZA VACCINE (#1) 2024 DEPRESSION SCREENING 08/13/2024 ZOSTER VACCINE (1 of 2) 2046 HIB VACCINE Aged Out No longer eligi ble based on patient's age to complete this topic HPV VACCINE Aged Out No longer eligi ble based on patient's age to complete this topic MENINGOCOCCAL (Group B) VACCINE Aged Out No longer eligible based on patient's age to complete this topic MENINGOCOCCAL VACCINE Aged Out No ivana antonino eligible based on patient's age to complete this topic PNEUMOCOCCAL VACCINE Aged Out No long er eligible based on patient's age to complete this topic
--- OUTSIDE RECORDS SUMMARY | 2024-09-16 15:49 | XMS_ITS | Clinical Summary ---
Author Organization [facility] Address [address] [place] [address] Phone Care Team Providers Care Glass Cut Off Tender Name Role Phone Unavailable Primary Care Provider Unavailabl e Allergies No known active allergies Medications No known medications Active Problems No known active problems Encounters Date Type Department Care Team Description 09/16/2024 Telephone [facility] Gynecologic Oncology [place] [address] [place] [address] Blanca Caruso MD Question (Symptoms before surgery) 09/12/2024 Telephone [facility] Gynecologic Oncology [place] [address] [place] [address] Blanca Caruso MD Surgery 09/04/2024 External Device Data STL ABSTRACTION Provider, Abstract 09/03/2024 External Device Data STL ABSTRACTION Provider, Abstract 09/02/2024 External Device Data STL ABSTRACTION Provider, Abstract 08/29/2024 Telephone [facility] Gynecologic Oncology [place] [address] [place] [address] Blanca Caruso MD Surgery date 08/29/2024 Telephone [facility] Gynecologic Oncology [place] [address] [place] [address] Blanca Caruso MD Surgery 08/26/2024 External Device Data STL ABSTRACTION Provider, Abstract 08/20/2024 2:00 PM EMERGENCY VETERINARIAN Office Visit [facility] Gynecologic Oncology [place] [address] [place] [address] Blanca Caruso MD Adnexal mass (Primary Dx) 08/20/2024 Telephone [facility] Gynecologic Oncology [place] [address] [place] [phone] Blanca Caruso MD Surgery 08/20/[address] [facility] Oncology and Hematology [place] [facility] [place] [address] [place] [address] Klaudia Lim MD 08/05/2024 External Device Data STL ABSTRACTION Provider, Abstract 07/31/2024 Telephone [facility] Gynecologic Oncology [place] [address] [place] [address] Blanca Caruso MD Appointment Notification 07/31/2024 Telephone [facility] Gynecologic Oncology [place] [address] [place] [address] [phone] Amna Luevano, A Referral 07/31/2024 Abstract [facility] Gynecologic Oncology [place] [address] [place] [address] Blanca Caruso MD from Last 3 Months Social History Tobacco Use Types Packs/Day Years Used Date Smoking Tobacco: Never Tobacco Cessation:Counseling Given: Not Answered Alcohol Use Standard Drinks/Week Comments Yes 0 (1 standard drink = 0.6 oz pur e alcohol) rarely/socially Comments No Sex and Gender Information Value Date Recorded Sex Assigned at Not on file Legal Sex Female 9:03 AM EMERGENCY VETERINARIAN Gender Identity Not on file Sexual Orientation Not on file Last Filed Vital Signs Vital Sign Reading Time Taken Comments Blood Pressure 122/68 08/20/2024 1:59 PM EMERGENCY VETERINARIAN Pulse 87 08/20/2024 1:59 PM EMERGENCY VETERINARIAN Temperature 37.1 ??C (98.7 ??F) 08/20/2024 1:59 PM CS T Respiratory Rate - - Oxygen Saturation 99% 08/20/2024 1:59 PM EMERGENCY VETERINARIAN Inhaled Oxygen Concentration - - Weight 51.7 kg (114 lb) 08/20/2024 1:59 PM EMERGENCY VETERINARIAN Height 167.6 cm (5' 6 ) 08/20/2024 1:59 PM EMERGENCY VETERINARIAN Body Mass Index 18.4 08/20/2024 1:59 PM EMERGENCY VETERINARIAN Plan of Treatment Upcoming Encounters Date Type Department Care Team (Latest Contact Info) Description 09/18/2024 1:35 PM EMERGENCY VETERINARIAN Hospital Encounter [facility] [address] [place] [phone] Blanca Caruso MD [address] [place] [address] Pelvic mass 09/18/2024 1:35 PM EMERGENCY VETERINARIAN - 09/18/2024 5:35 PM EMERGENCY VETERINARIAN Surgery [facility] [address] [place] [address] Blanca Caruso MD [address] [place] [address] SALPINGO-OOPHORECTO MY ROBOTIC XI 10/06/2024 1:45 PM EMERGENCY VETERINARIAN Office Visit [facility] Gynecologic Oncology [place] [address] [place] [address] Blanca Caruso MD [address] [facility] [place] [address] Scheduled Procedures Name Priority Associated Diagnoses Date/Ti me SALPINGO-OOPHORECTOMY ROBOTIC XI Pelvic mass 09/18/2024 1:35 PM EMERGENCY VETERINARIAN Health Maintenance Due Date Last Done Comments DTAP/TDAP/TD VACCINES (1 - Tdap) 2015 HEPATITIS B VACCINES (1 of 3 - 19+ 3-dose series) 2015 CERVICAL CANCER SCREENING 2017 INFLUENZA VACCINE (#1) 2024 Preventative Visit- Commercial 08/13/2024 HPV VACCINES Aged Out No longer eligi ble based on patient's age to complete this topic Insurance [facility]
--- OUTSIDE RECORDS SUMMARY | 2024-09-16 15:49 | XMS_ITS | Continuity of Care Document ---
Author Organization [facility] Address [address] [place] [address] [place] [address] Phone Care Team Providers Care Novelties Sales Representative Name Role Phone Morgan GONZALEZ, Earle Unavailable Unavailable Allergies, Adverse Reactions, Alerts Substance Reaction Status Criticality codeine Active No Information Medications Medication Instructions Dosage Effective Dates (start - stop) Status Comments Ultram 50 mg tablet take 1 tablet by oral route every 6 hours as needed - Active PRN for pain, avoid driving or operate machines Mobic 15 mg tablet take 1 tablet by oral route every day - Active Procedures Procedure Date OFFICE/OUTPATIENT VISIT, EST OFFICE/OUTPATIENT VISIT, EST PREV VISIT, NEW, AGE 18-39 Advance Directives Directive Yes / No Effective Date File Name No Information Encounters Encounter Description Practice Location Reason(s) For Visit Diagnoses Date Provider Providers Copied on Encounter OFFICE/OUTPA TIENT VISIT, EST [facility], [address] [place], [id number], tel:[phone] [facility] back pain (chief complaint) elevated ferritin (chief complaint) LumbagoIron disorder 5 Morgan Og. [address] [place], [address] , [place]. tel:[phone] Referring Provider: Earle Mora, [address], [place], [place], [address]. tel:[phone] OFFICE/OUTPA TIENT VISIT, EST [facility], [address] [place], [place], [address], tel:[phone] [facility] HLP (chief complaint) hematuria (chief complaint) hemoglobin (chief complaint) dysmenorrh ea (chief complaint) HyperlipidemiaHemat uriaHemoglobin diseasePolyarthralg ia 5 Morgan Og. [address], [place], [place], [address] , . [phone] Referring Provider: Earle Mora, [address], [place], [place], [address]. tel:[phone] PREV VISIT, NEW, AGE 18-39 [facility], [address], [place], [place], [address], [place] tel:[phone] [facility] Physical (chief complaint) Routine medical exam 5 Morgan Og. [address], [place], [place], [address] , [place]. [phone] Family History Family Member Type Diagnosis Age At Onset Mother Problem (finding) Cancer, cervical Brother Problem (finding) Alive and well Father Problem (finding) Unknown Payers Payer name Insurance type Covered democrat ID Authoriza tion(s) No Information Social History Type Description Quantity Date Captured Comments Alcohol Use Details No Caffeine Use Details Unknown Tobacco Use Status Light cigarette smok er (1-9 cigs/day) Smoking Status Light tobacco smoker Sex Female Vital Signs Date / Time: Height Weight BMI Pulse Rate Blood Pressure Temperature Respiratory Rate Body Surface Area Head Circumference BMI percentile Pulse Ox Inhaled Ox 2:19 PM 167.64 cm 115.50 lbs 18.6 4 kg/m eter (2) 86 /min 122/76 mm[Hg] 98.0 F 18 /min 12 Chief Complaint And Reason For Visit From encounter dated '04/13/2015 13:15'. back pain (chief complaint). Description: Additional information: Pt has chornic low back pain. Pt denies any loss of bowel or bladder control Pt denies any scaitcia. Pt has 8/10 back pain. Pt failedNSAID. pt has some degenerative disease on xrays. Knee and ankle xray benign. elevated ferritin (chief complaint). Description: Pt has elevated ferritin and also mild elevated hemoglobin. Pt denies any abd pain or any jaundice. Plan Of Treatment Date Type Action Status Referral Ordered: Physical Therapy (related to Lumbago) ordered Referral Ordered: David Vaughn (related to Iron disorder) ordered Referral Referred To: Physical Therapy Ordered: Referrals: Physical Therapy. Evaluate and treat ordered Referral Referred To: David Vaughn [address] [place], [phone] Ordered: Referrals: David Vaughn. Evaluate and treat ordered Referral Ordered: LUMBAR XRAY AP AND LAT ONLY ordered Referral Ordered: Otolaryngology (related to Routine medical exam) ordered Referral Ordered: Referrals: Otolaryngology Appointment date/timeframe: Today ordered History Of Present Illness Encounter Date Complaint History Of Prese nt Illness back pain Additional infor mation: Pt has chornic low back pain. Pt denies any loss of bowel or bladder control Pt denies any scaitcia. Pt has 8/10 back pain. Pt failed NSAID. pt has some degenerative disease on xrays. Knee and ankle xray benign. elevated ferritin Pt has elevate d ferritin and also mild elevated hemoglobin. Pt denies any abd pain or any jaundice. HLP Pt has mildly el evated TG. Pt drinks a lot of sweet tea hematuria Pt has mild hadley turia. pt denies any UTI symptoms hemoglobin Pt has mildly el evated hemoglobin. Pt does smoke one pack every 4 days. dysmenorrhea Additional infor mation: tylenol with codeine causes mild rash. Pt has painful period. Physical Pt needs annual physical. Pt c/o knee and ankle and back pain for long time. Pt denies any injury. Pt states that pain is worse in the morning. Pt c/o clear draining both ears chronically. No hearing loss. Pt denies any ear pain. Pt has dysmenorrhea. Pt has period every 4 weeks. Pt denies any other complaints Instructions Date Instruction Additional Infor mation No Information Assessments Type Assessment Date assessment Lumbago assessment Iron disorder Mental Status Date Cognitive Assessment Orientation - [place] ed to time, place, person, situation.
--- OUTSIDE RECORDS SUMMARY | 2024-09-16 15:49 | XMS_ITS | Referral Summary ---
Author Organization [facility] Address [address] [place] [address] Care Team Providers Care Design Eng Name Role Phone Unavailable Primary Care Provider Unavailabl e Source Comments [facility],non-owned Affiliates and Associated Physician Practices is amultiple site organization consisting of ambulatory clinics and hospital sitesin [place], [place], [place] and [place]. This disclosure is being madepursuant to the Care Everywhere program and may not contain all information available regarding this patient. Last updated 18.[facility] Allergies No known active allergies Medications * [...] Comments Blood Pressure 129/94 07/30/2023 2:37 PM RIVET SORTER Pulse 84 07/30/2023 12:06 PM RIVET SORTER Temperature 36.6 ??C (97.8 ??F) 07/30/2023 12:[address] Respiratory Rate 20 07/30/2023 12:06 PM RIVET SORTER Oxygen Saturation 99% 07/30/2023 2:37 PM RIVET SORTER Inhaled Oxygen Concentration - - Weight 50.3 kg (111 lb) 07/30/2023 12:06 PM RIVET SORTER Height 167.6 cm (5' 6 ) 07/30/2023 12:06 PM RIVET SORTER Body Mass Index 17.92 07/30/2023 12:06 PM RIVET SORTER Plan of Treatment Not on file
--- OUTSIDE RECORDS SUMMARY | 2024-09-16 15:51 | XMS_ITS | Continuity of Care Document ---
Author Organization [facility] Address [address] [place] [address] [place] [address] Phone Care Team Providers Care Certified Hearing Instrument Dispenser Name Role Phone Morgan GONZALEZ, Earle Unavailable Unavailable Allergies, Adverse Reactions, Alerts Substance Reaction Status Criticality codeine Active No Information Medications Medication Instructions Dosage Effective Dates (start - stop) Status Comments Mobic 15 mg tablet take 1 tablet by oral route every day - Active Ultram 50 mg tablet take 1 tablet by oral route every 6 hours as needed - Active PRN for pain, avoid driving or operate machines Procedures Procedure Date OFFICE/OUTPATIENT VISIT, EST OFFICE/OUTPATIENT VISIT, EST PREV VISIT, NEW, AGE 18-39 Advance Directives Directive Yes / No Effective Date File Name No Information Encounters Encounter Description Practice Location Reason(s) For Visit Diagnoses Date Provider Providers Copied on Encounter OFFICE/OUTPA TIENT VISIT, EST [facility], [address] [place], [place], [id number], tel:[phone] [facility] back pain (chief complaint) elevated ferritin (chief complaint) LumbagoIron disorder 5 Morgan Og. [address] [place], [address] , [place]. tel:[phone] Referring Provider: Earle Mora, [address], [place], [place], [address]. tel:[phone] OFFICE/OUTPA TIENT VISIT, EST [facility], [address] [place], [address], tel:[phone] [facility] HLP (chief complaint) hematuria (chief complaint) hemoglobin (chief complaint) dysmenorrh ea (chief complaint) HyperlipidemiaHemat uriaHemoglobin diseasePolyarthralg ia 5 Morgan Og. [address], [place], [place], [address] , . [phone] Referring Provider: Earle Mora, [address], [place], [place], [address]. tel:[phone] PREV VISIT, NEW, AGE 18-39 [facility], [address], [place], [place], [address], [place] tel:[phone] [facility] Physical (chief complaint) Routine medical exam 5 Morgan Og. [address], [place], [place], [address] , [place]. [phone] Family History Family Member Type Diagnosis Age [...] ordered Referral Referred To: David Vaughn [address] [place], [phone] Ordered: Referrals: David Vaughn. Evaluate and treat [...] Mental Status Date Cognitive Assessment Orientation - [place] ed to time, place, person, situation.
[2024-09-16 16:14] VITALS: BP 140/85; PULSE 76; RESP 18; TEMP 36.5; O2SAT 100
[2024-09-16 16:49] LABS: EDCOVIDSCREEN Negative (Negative); EDINFLUASCREEN Negative (Negative); EDINFLUBSCREEN Negative (Negative); EDSTREPNEGPOS1 Negative (Negative)
--- NOTE | 2024-09-16 17:51 | ED_ITS ---
HPI - URI/Sore Throat General Chief Complaint: Upper Respiratory Infection Stated Complaint: cough / sore throat Time Seen by Provider: 09/16/24 17:51 Source: patient, RN notes reviewed and old records reviewed Mode of arrival: ambulatory Limitations: no limitations History of Present Illness HPI Narrative: patient presents with complaints of cold-like symptoms for 2 weeks. She reports that she is scheduled to have surgery later this week, wanted to make sure that she did not have anything communicable prior to going into surgery. She denies any fever throughout the course of her symptoms. She is not any distress at this time. States that she has not had to take any fever reducing medication and is feeling fairly good today. Related Data Home Medications ?Medication ?Instructions ?Recorded ?Confirmed ?Last Taken ?Type No Home Medications 09/16/24 09/16/24 Unknown History Allergies Allergy/AdvReac Type Severity Reaction Status Date / Time No Known Allergies Allergy Verified 09/16/24 17:28 Review of Systems Review of Systems: All systems reviewed & are unremarkable except as noted in HPI and below Constitutional: Constitutional: Reports headache(s) and Reports lethargy ENT: Reports system reviewed and no additional complaints, except as documented, Reports nasal discharge and Reports sore throat Cardiovascular: Cardiovascular: Reports no additional cardiovascular complaints Respiratory: Respiratory: Reports no additional respiratory complaints Gastrointestinal: Gastrointestinal: Reports no additional gastrointestinal complaints [facility] Past Medical History Medical History Anxiety Social History Social History Smoking status: Current every day smoker Tobacco type: e-cigarettes/vaping Gender identity (if verbalized by the patient): Female Comments At the time of my signature, I reviewed and agree with the nursing past medical, surgical, social, and family history. There is no relevant family history pertinent to the patient complaint. Exam Const: General: cooperative, no acute distress, alert and awake Orientation/consciousness: oriented to person, oriented to place and oriented to time HENMT: Head: normal to inspection Ears: TM's normal bilaterally Mouth: Yes moist mucous membranes Throat: posterior oropharynx normal Resp: Effort & Inspection: normal respiratory effort and able to speak in complete sentences Auscultation: clear to auscultation bilaterally, no crackles, no rales, no rhonchi and no wheezes Cardio: Palpation: normal PMI Rate: regular rate Rhythm: regular rhythm Heart sounds: S1 normal heart sound present and S2 normal heart sound present Neuro: General: oriented to person, oriented to place and oriented to time Cranial nerves: Yes CN's II-XII intact bilaterally Psych: Appearance: grossly normal Thought process: Normal thought process present Insight: Good insight present (Psych) Judgement: Good judgement present (Psych) Course Course Level of Care: Express Care Visit Vital Signs Vital signs: Vital Signs Temperature 97.7 F 09/16/24 16:14 Pulse Rate 76 09/16/24 16:14 Respiratory Rate 18 09/16/24 16:14 Blood Pressure 140/85 09/16/24 16:14 Pulse Oximetry 100 09/16/24 16:14 Oxygen Delivery Room Air 09/16/24 16:14 Temperature 97.7 F 09/16/24 16:14 Pulse Rate 76 09/16/24 16:14 Respiratory Rate 18 09/16/24 16:14 Blood Pressure 140/85 09/16/24 16:14 Pulse Oximetry 100 09/16/24 16:14 Oxygen Delivery Room Air 09/16/24 16:14 Reviewed MDM - URI/Sore Throat MDM Narrative Medical decision making narrative: Patient nontoxic appearing, stable for discharge home with supportive care measures. Negative COVID, negative flu negative strep. Discharge instructions reviewed with patient, as well as provided in writing per nursing staff. The instructions also include specific and strict return/GO TO THE ER as well as f/u information. All questions have been answered, and the patient deny any further questions with discharge and discharge plan. Some parts of this dictation were generated by voice recognition software and may contain typographical and/or grammatical inaccuracies. Differential Diagnosis Differential diagnosis: Likely upper respiratory infection, otitis media, viral infection, influenza and pharyngitis Medical Records Attestation: I reviewed the patient's medical records. Lab Data Attestation: I reviewed the patient's lab results. Labs: Lab Results 09/16/24 Range/Units 16:44 POC Influenza A Ag Negative (Negative) POC Influenza B Ag Negative (Negative) POC SARS CoV-2 Ag Negative (Negative) POC Grp A Strep Screen Negative (Negative) Discharge Plan Discharge Clinical Impression: Upper respiratory infection Qualifiers: URI type: unspecified viral URI Qualified Code(s): J06.9 - Acute upper respiratory infection, unspecified Patient Disposition: Home, Self-Care Condition: Stable Instructions: Antibiotic Form, Cold Symptoms (ED) Additional Instructions: use [id number] medications per package instructions to treat symptoms. Follow-up with primary care provider. Emergency department for new or worse symptoms Patient Language: Romansh Prescriptions: No Action No Home Medications Follow-up/Referrals: PHYSICIAN,ADULT REMEDIAL EDUCATION INSTRUCTOR [Primary Care Provider] - Time of Disposition: 17:59
== END 2024-09-16 18:03 | disposition home or self-care (01) ==
PROVIDERS: Emergency Provider Nurse Practitioner Family
DX: J06.9 Acute upper respiratory infection, unspecified (principal); Z20.822 Contact with and (suspected) exposure to COVID-19; F17.290 Nicotine dependence, other tobacco product, uncomplicated
CPT/HCPCS: 87081; 87426; 87804; 87880; 99213; G0463

== ENCOUNTER 2024-09-22 13:41 | Emergency (ER) | payer BC, SELFPAY ==
--- NOTE | ~2024-09-22 | XR_ITS ---
CHEST RADIOGRAPH, PA AND LATERAL CLINICAL HISTORY: chest pain . COMPARISON: Reference is made to a CT examination of the abdomen and pelvis dated 06/29/2024 TECHNIQUE: PA and lateral views of the chest. FINDINGS The cardiomediastinal silhouette is unremarkable. The lungs are clear. Free air is detected below the left hemidiaphragm, extending to the midline consistent with patient's history of recent surgery. Subcutaneous air is also detected within the left lateral abdomen. IMPRESSION: No focal infiltrate or effusion. 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 Reviewed, dictated and finalized at location A. [facility]NE[facility]
--- NOTE | 2024-09-22 13:43 | ECG_ITS ---
Test Date: 2024-09-22 13:50:03 Measurements Intervals [place] Rate: 83 P: 86 MI: 143 QRS: 87 QRSD: 90 T: 59 QT: 350 QTc: 412 Interpretive Statements SINUS RHYTHM BASELINE ARTIFACT- I, II, III, AVR, AVL, AVF, V1-V2 NORMAL ECG No previous ECG available for comparison Electronically Signed On 09-22-2024 13:51:07 ANALYSIS INTERN by Naveen Samaniego D.O.
--- NOTE | 2024-09-22 13:46 | ED.CHESTPAIN ---
HPI - Chest Pain General Chief Complaint: Chest Pain Stated Complaint: chest pain s/p ovarian cyst removal Time Seen by Provider: 09/22/24 13:46 Focused HPI: This is a 29 year old female that presents to the ER for chest pain. Reports she had ovarian cyst removal surgery 4 days ago at [facility]. Reports she has been having chest discomfort, nausea and vomiting. GENERAL: Uncomfortable, well-nourished, and in no acute distress. HEAD: Normocephalic, atraumatic. CHEST: Clear to auscultation. ?No respiratory distress. HEART: Regular rate and rhythm.? NEURO: ?Alert and oriented x3. Patient screened in triage and initial orders placed.? ?Additional care and disposition to be based upon?diagnostic testing and treatment. Related Data Home Medications ?Medication ?Instructions ?Recorded ?Confirmed ?Last Taken ?Type No Home Medications 09/16/24 09/16/24 Unknown History Allergies Allergy/AdvReac Type Severity Reaction Status Date / Time No Known Allergies Allergy Verified 09/16/24 17:28 [facility] Past Medical History Medical History Anxiety Social History Social History Smoking status: Current every day smoker Tobacco type: e-cigarettes/vaping Gender identity (if verbalized by the patient): Female Course Vital Signs Vital signs: Vital Signs Temperature 98.3 F 09/22/24 13:51 Pulse Rate 70 09/22/24 13:51 Respiratory Rate 14 09/22/24 13:51 Blood Pressure 132/68 09/22/24 13:51 Pulse Oximetry 100 09/22/24 13:51 Oxygen Delivery Room Air 09/22/24 13:51 Temperature 98.3 F 09/22/24 13:51 Pulse Rate 63 09/22/24 17:08 Respiratory Rate 16 09/22/24 17:08 Blood Pressure 106/69 09/22/24 17:08 Pulse Oximetry 99 09/22/24 17:08 Oxygen Delivery Room Air 09/22/24 13:51 MDM - Chest Pain MDM Narrative Medical decision making narrative: patient left after medical screening exam and initial workup and before any further evaluation or management Lab Data 09/22/24 13:59 09/22/24 13:59 Labs: Lab Results 09/22/24 Range/Units 13:59 WBC 9.8 (4.5-10.0) K/mm3 RBC 4.89 (4.2-5.4) M/mm3 Hgb 14.4 (12.0-15.0) g/dL Hct 43.1 (37.0-47.0) % MCV 88.1 (80-100) fl MCH 29.4 (26-34) pg MCHC 33.4 (32-36) g/dl RDW 12.0 (11.5-14.5) % Plt Count 327 (150-375) k/mm3 MPV 9.4 (7.4-10.4) fl Immature Gran % (Auto) 0.3 (0-0.5) % Neut % (Auto) 55.7 (45.5-73.1) % Lymph % (Auto) 34.9 (18.3-44.2) % Benzie % (Auto) 5.9 (2.6-8.5) % Eos % (Auto) 2.8 (0-4.4) % Baso % (Auto) 0.4 (0.2-1.2) % Lymph # (Auto) 3.43 H (0.9-3.2) K/mm3 Benzie # (Auto) 0.6 (0.1-0.6) K/mm3 Eos # (Auto) 0.3 (0-0.3) K/mm3 Baso # (Auto) 0.0 (0.0-0.1) K/mm3 Abs Immat Gran (auto) 0.03 (0.00-0.031) K/mm3 Absolute Neuts (auto) 5.5 (1.3-6.7) K/mm3 Absolute Nucleated RBC 0.000 (0.0-0.012) K/mm3 Nucleated RBC % 0.0 (0.0-0.2) % PT 12.8 (11.1-14.7) Seconds INR 0.9 APTT 26.8 (22.3-36.8) Seconds Sodium 140 (137-145) mmol/L Potassium 3.8 (3.4-5.0) mmol/L Chloride 102 (98-107) mmol/L Carbon Dioxide 28 (22-30) mmol/L Anion Gap 10 (4-12) mmol/L BUN 7 D (7-17) mg/dL Creatinine 0.59 L (0.7-1.0) mg/dL Estim Creat Clear Calc Not Reportable Estimated GFR > 60 (59 - ) Glucose 97 (65-110) mg/dL Calcium 9.5 (8.4-10.2) mg/dL Total Bilirubin 1.1 (0.2-1.3) mg/dL AST 22 (14-36) U/L ALT 17 (6-35) U/L Alkaline Phosphatase 81 (38-126) U/L Troponin I < 0.012 (0.000-0.034) ng/mL Total Protein 8.0 (6.3-8.2) g/dL Albumin 4.3 (3.5-5.1) g/dL Lipase 61 (23-300) U/L Discharge Plan Discharge Clinical Impression: Chest pain Qualifiers: Chest pain type: unspecified Qualified Code(s): R07.9 - Chest pain, unspecified Patient Disposition: Elopement After Seen by Prov Condition: Guarded Prognosis Patient Language: Micronesian Prescriptions: No Action No Home Medications Follow-up/Referrals: PHYSICIAN,ENTERPRISE RESOURCE PLANNING CONSULTANT [Primary Care Provider] -
[2024-09-22 13:51] VITALS: BP 132/68; PULSE 70; RESP 14; TEMP 36.8; O2SAT 100
--- OUTSIDE RECORDS SUMMARY | 2024-09-22 13:51 | XMS_ITS | Clinical Summary ---
Author Organization [facility] Address [address] [place] [address] Care Team Providers Care Operating Room Technologist Name Role Phone Unavailable Primary Care Provider Unavailabl e Source Comments [facility],non-owned Affiliates and Associated Physician Practices is amultiple site organization consisting of ambulatory clinics and hospital sitesin [place], [place], [place] and [place]. This disclosure is being madepursuant to the Care Everywhere program and may not contain all information available regarding this patient. Last updated 18.[facility] Allergies No known active allergies Medications * [...] Comments Blood Pressure 129/94 07/30/2023 2:37 PM HOOP MAKER HELPER MACHINE Pulse 84 07/30/2023 12:06 PM HOOP MAKER HELPER MACHINE Temperature 36.6 C (97.8 F) 07/30/2023 12:06 PM HOOP MAKER HELPER MACHINE Respiratory Rate 20 07/30/2023 12:06 PM HOOP MAKER HELPER MACHINE Oxygen Saturation 99% 07/30/2023 2:37 PM HOOP MAKER HELPER MACHINE Inhaled Oxygen Concentration - - Weight 50.3 kg (111 lb) 07/30/2023 12:06 PM HOOP MAKER HELPER MACHINE Height 167.6 cm (5' 6 ) 07/30/2023 12:06 PM HOOP MAKER HELPER MACHINE Body Mass Index 17.92 07/30/2023 12:06 PM HOOP MAKER HELPER MACHINE Plan of Treatment Health Maintenance Due Date [...]
--- OUTSIDE RECORDS SUMMARY | 2024-09-22 13:51 | XMS_ITS | Patient Health Summary ---
Author Organization [facility] [email or web address] Address [address] [place] [address] Care Team Providers Care Professor Sculpture Name Role Phone Unavailable Primary Care Provider Unavailabl e Note from [facility] [email or web address] [facility],non-owned Affiliates and Associated Physician Practices is amultiple site organization consisting of ambulatory clinics and hospital sitesin [place], [place], [place] and [place]. This disclosure is being madepursuant to the Care Everywhere program and may not contain all information available regarding this patient. Last updated 18.[facility] [email or web address] Allergies No known active allergies Medications * [...] Comments Blood Pressure 129/94 07/30/2023 2:37 PM OTOLARYNGOLOGY NURSE Pulse 84 07/30/2023 12:06 PM OTOLARYNGOLOGY NURSE Temperature 36.6 C (97.8 F) 07/30/2023 12:06 PM OTOLARYNGOLOGY NURSE Respiratory Rate 20 07/30/2023 12:06 PM OTOLARYNGOLOGY NURSE Oxygen Saturation 99% 07/30/2023 2:37 PM OTOLARYNGOLOGY NURSE Inhaled Oxygen Concentration - - Weight 50.3 kg (111 lb) 07/30/2023 12:06 PM OTOLARYNGOLOGY NURSE Height 167.6 cm (5' 6 ) 07/30/2023 12:06 PM OTOLARYNGOLOGY NURSE Body Mass Index 17.92 07/30/2023 12:06 PM OTOLARYNGOLOGY NURSE Procedures * TRICHOMONAS RAPID TEST(Performed 07/30/2023) * CHLAMYDIA + GC AMPLIFIED PROBE(Performed 07/30/2023) * BACTERIAL VAGINOSIS + YEAST SMEAR(Performed 07/30/2023) * URINALYSIS REFLEX MICROSCOPIC REFLEX CULTURE(Performed 07/30/2023) * HCG BETA BLOOD QUANTITATIVE(Performed 07/30/2023) * LIPASE BLOOD(Performed 07/30/2023) * COMPREHENSIVE METABOLIC PANEL(Performed 07/30/2023) * CBC W AUTO DIFFERENTIAL(Performed 07/30/2023) Results * (ABNORMAL) BACTERIAL VAGINOSIS + YEAST SMEAR (07/30/2023 1:29 PM OTOLARYNGOLOGY NURSE) Clue Cells No Clue Cells Seen No Clue Cells Seen 07/30/2023 3:57 PM OTOLARYNGOLOGY NURSE [facility] Yeast No Yeast Seen No Yeast Seen 07/30/20 3:57 PM OTOLARYNGOLOGY NURSE [facility]CRO[facility] Debbie Score Debbie Score 4-6: Consistent with transition from normal vaginal susana(A) Dbebie Score 0-3: Consistent with normal vaginal susana 07/30/2023 3:57 PM OTOLARYNGOLOGY NURSE [facility] MICRO[facility] Microbiology ENTIRE VAGINA / Unknown Collection / Unknown 07/30/2023 1:29 PM OTOLARYNGOLOGY NURSE 07/30/2023 2:14 PM OTOLARYNGOLOGY NURSE Ada Landon PA-C LAB - MICROBIOLOGY ORDERABLES Performing Organization Address City/State/[facility] Co de Phone Number [facility] [address] [phone] * CHLAMYDIA + GC AMPLIFIED PROBE (07/30/2023 1:29 PM OTOLARYNGOLOGY NURSE) Chlamydia Amplified Probe Negative Negative 07/30/2023 7:24 PM OTOLARYNGOLOGY NURSE [facility] GC Amplified Probe Negative Negative 07/30/2023 7:24 PM OTOLARYNGOLOGY NURSE [facility] Microbiology ENTIRE ENDOCERVIX / Unknown Collection / Unknown 07/30/2023 1:29 PM OTOLARYNGOLOGY NURSE 07/30/2023 2:14 PM OTOLARYNGOLOGY NURSE Narrative [facility] - 07/30/2023 7:24 PM OTOLARYNGOLOGY NURSE Results based on detection/no detection of ribosomal RNA by amplified method. Ada Landon PA-C LAB - MICROBIOLOGY ORDERABLES [facility] [address] [place] [address], [facility] [phone] * (ABNORMAL) TRICHOMONAS RAPID TEST (07/30/2023 1:29 PM OTOLARYNGOLOGY NURSE) Trichomonas Rapid Test Positive( A) Negative 07/30/2023 2:10 PM OTOLARYNGOLOGY NURSE [facility] Microbiology VAGINAL SWAB / Unknown Collection / Unknown 07/30/2023 1:29 PM OTOLARYNGOLOGY NURSE 07/30/2023 1:43 PM OTOLARYNGOLOGY NURSE Ada Landon PA-C LAB - MICROBIOLOGY ORDERABLES Performing Organization Address [facility] [address]/[facility] Co de Phone Number [facility] [address] [place] [address] * URINALYSIS REFLEX MICROSCOPIC REFLEX CULTURE (07/30/2023 1:20 PM OTOLARYNGOLOGY NURSE) Color UA Yellow Straw, Yellow 07/30/2023 1:29 PM OTOLARYNGOLOGY NURSE [facility] Clarity UA Clear Clear 07/30/2023 1:29 PM OTOLARYNGOLOGY NURSE [facility] Glucose UA Negative Negative 07/30/2023 1:29 PM OTOLARYNGOLOGY NURSE [facility] Bilirubin UA Negative Negative 07/30/2023 1:29 PM OTOLARYNGOLOGY NURSE [facility] Ketone UA Negative Negative 07/30/2023 1:29 PM OTOLARYNGOLOGY NURSE [facility] Specific [place] UA 1.021 1.005 - 1.030 07/30/2023 1:29 PM OTOLARYNGOLOGY NURSE [facility] Blood UA Negative Negative 07/30/2023 1:29 PM OTOLARYNGOLOGY NURSE [facility] pH UA 6.0 5.0 - 8.0 pH 07/30/2023 1:29 PM OTOLARYNGOLOGY NURSE [facility] Protein UA Negative Negative 07/30/2023 1:29 PM OTOLARYNGOLOGY NURSE [facility] Urobilinogen UA Negative Negative mg/dL 07/30/2023 1:29 PM OTOLARYNGOLOGY NURSE [facility] Nitrite UA Negative Negative 07/30/2023 1:29 PM OTOLARYNGOLOGY NURSE [facility] Leukocyte UA Negative Negative 07/30/2023 1:29 PM [facility] Urine Microscopy Urine microscopy not indicated 07/30/2023 1:29 PM [facility] Reflex Status Culture not indicated 07/30/2023 1:29 PM [facility] Urine URINE SPECIMEN OBTAINED BY CLEAN CATCH PROCEDURE / Unknown Collection / Unknown 07/30/2023 1:20 PM OTOLARYNGOLOGY NURSE 07/30/2023 1:24 PM [facility] - 07/30/2023 1:29 PM OTOLARYNGOLOGY NURSE Ankita Price MD LAB - URINALYSIS ORD ERABLES [facility] [address] [place], [place] [id number] * CBC W AUTO DIFFERENTIAL (07/30/2023 12:20 PM [facility]) WBC 10.2 4.0 - 10.7 x10E9/L 07/30/2023 12:31 PM [facility] RBC Count 4.88 3.90 - 5.20 x10E12/L 07/30/2023 12:31 PM [facility] Hemoglobin 15.0 11.9 - 15.8 g/dL 07/30/2023 12:31 PM [facility] Hematocrit 43.2 34.8 - 46.1 % 07/30/2023 12:31 PM [facility] MCV 88.5 80.0 - 98.0 fL 07/30/2023 12:31 PM [facility] MCH 30.7 26.7 - 33.6 pg 07/30/2023 12:31 PM [facility] MCHC 34.7 31.7 - 36.3 g/dL 07/30/2023 12:31 PM [facility] RDW-CV 12.6 11.3 - 14.8 % 07/30/2023 12:31 PM [facility] Platelet Count 300 150 - 420 x10E9/L 07/30/2023 12:31 PM [facility] MPV 9.7 7.8 - 11.4 fL 07/30/2023 12:31 PM [facility] Neutrophil % 60.1 41.0 - 74.0 % 07/30/2023 12:31 PM [facility] Lymphocyte % 30.5 17.0 - 47.0 % 07/30/2023 12:31 PM [facility] Monocyte % 7.2 3.0 - 11.0 % 07/30/2023 12:31 PM [facility] Eosinophil % 1.5 0.0 - 7.0 % 07/30/2023 12:31 PM [facility] Basophil % 0.5 0.0 - 1.6 % 07/30/2023 12:31 PM [facility] Immature Granulocytes % 0.2 0.0 - 1.0 % 07/30/2023 12:31 PM [facility] Neutrophil Absolute 6.13 1.60 - 7.50 x10E9/L 07/30/2023 12:31 PM [facility] Lymphocyte Absolute 3.11 1.00 - 4.40 x10E9/L 07/30/2023 12:31 PM [facility] Monocyte Absolute 0.73 0.15 - 1.00 x10E9/L 07/30/2023 12:31 PM [facility] Eosinophil Absolute 0.15 0.00 - 0.60 x10E9/L 07/30/2023 12:31 PM [facility] Basophil Absolute 0.05 0.00 - 0.13 x10E9/L 07/30/2023 12:31 PM [facility] Blood BLOOD SPECIMEN / Unknown Venipuncture / Unknown 07/30/2023 12:20 PM OTOLARYNGOLOGY NURSE 07/30/2023 12:26 PM [facility] Ankita Price MD LAB - HEMATOLOGY ORD ERABLES [facility] [address] [phone] * (ABNORMAL) COMPREHENSIVE METABOLIC PANEL (07/30/2023 12:20 PM [facility]) [facility] Glucose 82 70 - 105 mg/dL 07/30/2023 12:48 PM [facility] Sodium 142 136 - 145 mmol/L 07/30/2023 12:48 PM [facility] Potassium 3.8 3.5 - 5.1 mmol/L 07/30/2023 12:48 PM [facility] Chloride 108(H) 98 - 107 mmol/L 07/30/2023 12:48 PM [facility] CO2 22 22 - 29 mmol/L 07/30/2023 12:48 PM [facility] Calcium 9.6 8.4 - 10.4 mg/dL 07/30/2023 12:48 PM [facility] Anion Gap 12 6 - 16 mmol/L 07/30/2023 12:48 PM [facility] BUN 10 5.3 - 18.7 mg/dL 07/30/2023 12:48 PM [facility] Creatinine 0.73 0.57 - 1.11 mg/dL 07/30/2023 12:48 PM [facility] Alkaline Phosphatase 65 40 - 150 U/L 07/30/2023 12:48 PM [facility] ALT 9 0 - 55 U/L 07/30/2023 12:48 PM [facility] AST 16 5 - 34 U/L 07/30/2023 12:48 PM [facility] Protein Total 7.5 6.4 - 8.3 gm/dL 07/30/2023 12:48 PM [facility] Albumin 4.2 3.4 - 5.0 gm/dL 07/30/2023 12:48 PM [facility] Bilirubin Total 1.5(H) 0.2 - 1.2 mg/dL 07/30/2023 12:48 PM [facility] eGFR by CKD-EPI >90 >=90 mL/min/1.7 3 m2 07/30/2023 12:48 PM [facility] Blood BLOOD SPECIMEN / Unknown Venipuncture / Unknown 07/30/2023 12:20 PM OTOLARYNGOLOGY NURSE 07/30/2023 12:26 PM [facility] Ankita Price MD LAB - CHEMISTRY MAC LOVING [facility] Organization Address City/State/ZIP Co de Phone Number [facility] [address] [place] [address] * HCG BETA BLOOD QUANTITATIVE (07/30/2023 12:20 PM OTOLARYNGOLOGY NURSE) hCG Quantitative <2.42 mIU/mL 07/30/20 1:23 PM OTOLARYNGOLOGY NURSE [facility] Blood BLOOD SPECIMEN / Unknown Venipuncture / Unknown 07/30/2023 12:20 PM OTOLARYNGOLOGY NURSE 07/30/2023 12:26 PM OTOLARYNGOLOGY NURSE Narrative [facility] - 07/30/2023 1:23 PM OTOLARYNGOLOGY NURSE hCG Reference Range, mIU/mL: Males 0-2.0 Non Females 0-6.0 Perimenopausal Females ages 41-55* 0-7.7 Postmenopausal Females age >55* 0-14 Females, Weeks after Last Menstrual Period 0.2-1 week 5-50 1 - 2 weeks 50-500 2 - 3 weeks 100-5000 3 - 4 weeks 500-10,000 4 - 5 weeks 1000-50,000 5 - 6 weeks 10,000-100,000 6 - 8 weeks 15,000-200,000 2 - 3 months 10,000-100,000 Trophoblastic Disease >100,000 *In higher than expected hCG in females > age 40, a serum FSH >20 IU/L makes unlikely. Ada Landon PA-C LAB - CHEMISTRY OR DERABLES [facility] [address] [place] [address] * LIPASE BLOOD (07/30/2023 12:20 PM OTOLARYNGOLOGY NURSE) Lipase 17 <60 U/L 07/30/2023 12:48 PM OTOLARYNGOLOGY NURSE [facility] Blood BLOOD SPECIMEN / Unknown Venipuncture / Unknown 07/30/2023 12:20 PM OTOLARYNGOLOGY NURSE 07/30/2023 12:26 PM OTOLARYNGOLOGY NURSE Ankita Price MD LAB - CHEMISTRY MAC LOVING [facility] [address] [place] [address]
--- OUTSIDE RECORDS SUMMARY | 2024-09-22 13:51 | XMS_ITS | Referral Summary ---
Author Organization [facility] Address [address] [place] [address] Care Team Providers Care Customer Contact Sales Associate Name Role Phone Unavailable Primary Care Provider Unavailabl e Source Comments [facility],non-owned Affiliates and Associated Physician Practices is amultiple site organization consisting of ambulatory clinics and hospital sitesin [place], [place], [place] and [place]. This disclosure is being madepursuant to the Care Everywhere program and may not contain all information available regarding this patient. Last updated 18.[facility] Allergies No known active allergies Medications * [...] Comments Blood Pressure 129/94 07/30/2023 2:37 PM ASSISTANT BOYS TRACK COACH Pulse 84 07/30/2023 12:06 PM ASSISTANT BOYS TRACK COACH Temperature 36.6 C (97.8 F) 07/30/2023 12:06 PM ASSISTANT BOYS TRACK COACH Respiratory Rate 20 07/30/2023 12:06 PM ASSISTANT BOYS TRACK COACH Oxygen Saturation 99% 07/30/2023 2:37 PM ASSISTANT BOYS TRACK COACH Inhaled Oxygen Concentration - - Weight 50.3 kg (111 lb) 07/30/2023 12:06 PM ASSISTANT BOYS TRACK COACH Height 167.6 cm (5' 6 ) 07/30/2023 12:06 PM ASSISTANT BOYS TRACK COACH Body Mass Index 17.92 07/30/2023 12:06 PM ASSISTANT BOYS TRACK COACH Plan of Treatment Not on file
--- OUTSIDE RECORDS SUMMARY | 2024-09-22 13:51 | XMS_ITS | Clinical Summary ---
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
--- OUTSIDE RECORDS SUMMARY | 2024-09-22 13:52 | XMS_ITS | Encounter Summary ---
Author Organization [facility] Address [address] [place] [address] Care Team Providers Care Laser Technician Name Role Phone Unavailable Primary Care Provider Unavailabl e Reason for Visit * Reason Onset Date Comments Pain 09/22/2024 Encounter Details Date Type Department Care Team (Late st Contact Info) Description 09/22/2024 Telephone [facility] Gynecologic Oncology Rajput [address] [place] [address] Blanca Caruso MD [address] [place] [address] Pain Social History Tobacco Use Types Packs/Day Years Used Date Smoking Tobacco: Never Alcohol Use Standard Drinks/Week Comments Yes 0 (1 standard drink = 0.6 oz pur e alcohol) rarely/socially Feeling Safe Answer Date Recorded Are you in a relationship wi th someone who hurts you emotionally and/or physically? 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 States she feels full and unable to take a deep breath. Patient attempting to get up and walk. Patient described pain assharp and intermittent, reports shortness of breath. Patient advised that visit to ER is warranted for shortness of breath and chest pain. Patient states pain feels like gas and is moving. Patient advised that gas pain can migrate to chest, abdomen and shoulders. Advised to continue activity, drinkwarm liquids, add in Gas-x to medication regimen. Advised to visit ED if chest pain and shortness of breath does not subside. Patient verbalized understanding, no new questions at this time. VISION ENGINEER documented in this encounter Plan of Treatment Upcoming Encounters Date Type Department Care Team (Late st Contact Info) Description 10/06/2024 1:45 PM TELEVISION ENGINEER Office Visit [facility] Gynecologic Oncology Rajput [address] [place] [address] Elisabeth Sheffield, BRIANDA [address] [place] [address] documented as of this encounter Visit Diagnoses Not on filedocumented in this encounter
--- OUTSIDE RECORDS SUMMARY | 2024-09-22 13:52 | XMS_ITS | Encounter Summary ---
Author Organization [facility] Address 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 No malignancy. She does have endometriosis. I recommend she be seen by Dr. Blake for evaluation. Please place referral at post op visit. She can be seen by Elisabeth. TURBINE INSTALLER documented in this encounter Plan of Treatment Upcoming Encounters Date Type Department Care Team (Late st Contact Info) Description 10/06/2024 1:45 PM WIND TURBINE INSTALLER Office Visit [facility] Gynecologic Oncology Rajput [address] [facility] [address] [place] [address] Elisabeth Sheffield NP [address] [facility] [address] [place] [address] documented as of this encounter Visit Diagnoses Not on filedocumented in this encounter
--- OUTSIDE RECORDS SUMMARY | 2024-09-22 13:52 | XMS_ITS | Continuity of Care Document ---
Author Organization [facility] Address [address] [place] [address] [place] [address] Phone Care Team Providers Care Fish And Wildlife Scientific Aid Name Role Phone oMrgan GONZALEZ, Earle Unavailable Unavailable Allergies, Adverse Reactions, [...] Copied on Encounter OFFICE/OUTPA TIENT VISIT, EST [facility], [address] [place], [place], [id number], tel:[phone] [facility] back pain (chief complaint) elevated ferritin (chief complaint) LumbagoIron disorder [address], [address] [place], [place], [id number] , [place]. tel:[phone] Referring Provider: Earle Mora, [address], [place], [place], [id number]. tel:[phone] OFFICE/OUTPA TIENT VISIT, EST [facility], [address] [place], [place], [id number], tel:[phone] [facility] HLP (chief complaint) hematuria (chief complaint) hemoglobin (chief complaint) dysmenorrh ea (chief complaint) HyperlipidemiaHemat uriaHemoglobin diseasePolyarthralg ia [address], [place], [place], [id number] , . [phone] Referring Provider: Earle Mora, [address], [place], [place], [address]. tel:[phone] PREV VISIT, NEW, AGE 18-39 [facility], [address], [place], [place], [id number], [place] tel:[phone] [facility] Physical (chief complaint) Routine medical exam [address], [address], [place], [place], [address] , [place]. [phone] Family History Family Member Type Diagnosis Age At Onset Mother Problem (finding) Cancer, cervical Brother Problem (finding) Alive and well Father Problem (finding) Unknown Payers Payer name Insurance type Covered constitution party ID Authoriza tion(s) No Information Social History [...] ordered Referral Referred To: David Vaughn [address] [place], [phone] Ordered: Referrals: David Vaughn. Evaluate and treat [...] Mental Status Date Cognitive Assessment Orientation - [place] ed to time, place, person, situation.
--- OUTSIDE RECORDS SUMMARY | 2024-09-22 13:52 | XMS_ITS | Encounter Summary ---
Author Organization [facility] Address 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 Had COVID and Flu swab performed, negative. Patient still denies fever, reports throat is still sore. Patient advised that surgery will not be canceled and symptoms donot require rescheduling. Patient given number for [facility], advised to call and notify anesthesia team of symptoms to ensure they are aware. EAR SCIENTIST EAR SCIENTIST documented in this encounter Plan of Treatment Upcoming Encounters Date Type Department Care Team (Late st Contact Info) Description 10/06/2024 1:45 PM NUCLEAR SCIENTIST Office Visit [facility] Gynecologic Oncology Rajput [address] [facility] [address] [place] [address] Elisabeth Sheffield, BRIANDA [address] [facility] [address] [place] [address] documented as of this encounter Visit Diagnoses Not on filedocumented in this encounter
--- OUTSIDE RECORDS SUMMARY | 2024-09-22 13:52 | XMS_ITS | Data Portability ---
Author Organization [facility] [place] Address [address] [place] [address] Assessment No assessment recorded. Plan of Treatment Reminders Order Date Submit Date Provider Last Modified By Organization Details Last Modified Time Details Appointments None recorded. Lab hbcab (hepatitis B core Ab) igm, serum 2023 024 [facility] (Lab), [address], [place], [address], 4 05:01:33 HBsAg (hepatitis B surface Ag), serum 2023 024 [facility] (Lab), [address], [place], [address], 4 05:01:33 hepatitis C virus Ab, serum 2023 024 [facility] (Lab), [address], [place], [address], 4 05:01:33 unlisted lab - HIV 1/2 antigen/ant ibody, reflex confirmatio n 2023 024 [facility] (Lab), [address], [place], [address], 4 05:01:33 RPR (rapid plasma reagin), serum 2023 024 [facility] (Lab), [address] [place], [address], 4 05:01:33 test, urine 2023 024 valentina [place], [address], [address], [place], [address], 4 17:09:16 ca 125, serum 2023 024 [facility] (Lab), [address], [place], [address], 4 07:24:27 cancer Ag 19-9, serum or plasma 2023 024 [facility] (Lab), [address], [place], [address], 4 07:24:27 carcinoembr yonic Ag, quant, serum or plasma 2023 024 [facility] (Lab), [address], [place], [address], 4 07:24:28 Referral None recorded. Procedures None recorded. Surgeries None recorded. Imaging US, pelvis 2023 024 jyothi [place], [address], [address], [place], [address], 4 10:14:29 Medication Orders None recorded. Patient TargetsNo targets recorded. Patient InstructionsNo instructions recorded. Reason for Referral None Reported. Results Created Date Observation Date Name Description Value Unit Range Abnormal Flag Note LastModifiedBy Organization Detail LastModifiedTime 10/16/19 24 10/16/2023 CT/GC AND TRICH OMONA S VAGIN ARABELLA (RRNA ), SWAB chlamydia trachomatis, PCR Negati ve negati ve Not Available [facility] (Lab) [address] , [place], [address], 10/17/2023 16:07:23 10/16/19 24 10/16/2023 CT/GC AND TRICH OMONA S VAGIN ARABELLA (RRNA ), SWAB neisseria gonorrhoeae, PCR Negati ve negati ve Not Available [facility] (Lab) [address], [place], [address], 10/17/2023 16:07:23 10/16/19 24 10/16/2023 CT/GC AND TRICH OMONA S VAGIN ARABELLA (RRNA ), SWAB trichomonas vaginalis ribosomal RNA (rrna) Negati ve negati ve Not Available [facility] (Lab) [address], [place], [address], 10/17/2023 16:07:23 10/16/19 24 10/16/2023 pregn aimee test, urine HCG negati ve Not Available [place] [address], [place], [address], 10/16/2023 17:09:05 07/18/20 24 07/18/2024 CARBO HYDRA TE ANTIG EN 19-9 Ca 19-9 41 U/mL 0-35 high This assay was perfo rmed using [employer] reage nts and test kits. Value s obtai kelly with other assay metho ds or kits canno t be used [facility] . Not Available [facility] (Lab) [address] [place], [address], 07/19/2024 07:24:27 07/18/20 24 07/18/2024 CA 125 Ca 125 16.0 units /mL 0.0-35 .0 This assay was perfo rmed using [employer] reage nts and test kits. Value s obtai kelly with other assay metho ds or kits canno t be used [facility] . Not Available [facility] (Lab) [address], [place], [address], 07/19/2024 07:24:27 07/18/20 24 07/18/2024 CEA cea <0.6 NG/mL 0.0-3. 0 This assay was perfo rmed using [employer] reage nts and test kits. Value s obtai kelly with other assay metho ds or kits canno t be used inter [facility] . Not Available [facility] (Lab) [address], [place], [address], 07/19/2024 07:24:28 07/24/20 24 07/24/2024 US, pelvi s No observ ation record ed. [place] [address], [place], [address], 07/24/2024 18:42:34 07/24/20 24 07/24/2024 US, pelvi s No observ ation record ed. [email or web address] [address], [place], [address], 07/29/2024 14:26:46 Result Notes None recorded. Procedures Surgical History Date Name Laterality Status Provider Name and Address Organization Details Recorded Time 2023 Date of Last Pap Smear completed Renetta Coy [facility] 10/16/2023 16:37:26 Imaging Results Imaging Date Name Status [facility]Modified by [facility] Details LastModified Time 07/24/2024 US, pelvis completed [place] [address], [place], [address], 07/24/2024 18:42:34 07/24/2024 US, pelvis completed [id number] [address], [facility], [address], 07/29/2024 14:26:46 Procedure Notes None recorded. Medical [...] Updated DateTime 10/16/2023 167.64 cm 18.4 kg/m2 24204.53 g 107 mm[Hg] 62 mm[Hg] Renetta Coy [facility] 16:37:14 Date Recorded Body height Body mass index (BMI) Body weight Systolic blood pressure Diastolic blood pressure Provider Name and Address Organization Details Last Updated DateTime 07/18/2024 167.64 cm 17.8 kg/m2 95807.16 g 126 mm[Hg] 74 mm[Hg] Elizabeth Davide [facility] 14:36:45 Social History Question Answer Notes LastModified by Organizat ion Details LastModified Time Tobacco Smoking Status Never Smoker Renetta Coy [facility] 10/16/2023 16:38:25 What Is Your [...] Or The Highest Degree You Have Received? [id number] Information not available 10/16/2023 What Is Your Occupation? [employer], [employer] [email or web address] Information not available 07/18/2024 Are There Any [...] Anxious, Or Unable To Sleep At Night)? [id number] Information not available 10/16/2023 Do You Use [...] 2023 17:27:57 Mother Malignant tumor of ovary [id number] Not available 2023 14:38:00 Medical History Condition Response Allergies (Food, seasonal, environmental ) N Other N Breast Cancer N Drug/Latex Allergies/Reactions N Blood Transfusion N Dermatologic Disorders N Lung Disease N [...] SNOMED-CT Code Diagnosis ICD10 Code Diagnosis Note [id number] TONY Hernadez [place] [address] [address] 10/16/2023 16:27:17 10/16/2023 17:14:33 Venereal disease screening 265054735 Z11.3 Irregular periods 763257 07 N92.6 UPT (-)gc/ct/t rich testing sent [...] plan of care. Contracept ion care management 510100865 Z30.9 Infection by Trichomonas 80752985 A59.9 Sexually t ransmitted infectious disease 7173462 A64 [id number] RITO SANDHU MD [place] [address] [address] 07/18/2024 14:27:40 07/18/2024 15:07:06 Cyst of right ovary 2474355099 7152311 N83.201 - patient reports sudden onset RLQ [...] steps- pain and torsion precaution s given [id number] Nicolle Brown [place] [address] [address] 07/24/2024 17:27:40 07/25/2024 10:14:28 Cyst of right ovary 1190857749 1804493 N83.291 R10.2 Health Concerns Section Related Observation LastModified by Organization Detai ls LastModified Time None Recorded Concern Status LastModified by Organization Details LastModified Time None Recorded Advance Directives Directive None Recorded Payers Encounter Date Sequence Insurance Name Policy Number Policy Rodriguez Covered Member ID Rodriguez Member ID Guarantor Name 10/16/2023 1 [place] [id number] Sergio Lion Daily [id number] [place] [employer] 07/18/2024 1 [place] [id number] [place] R Daily [id number] [employer] [employer] 07/24/2024 1 [place] [id number] [place] R Daily [id number] [employer] [employer] Notes Date Note Type Note Provider Name and Address Organization Details Recorded Time 10/16/2023 text/html 28yo [id number] for new patient consult(+) trichomonas about 2 [...] per pt TONY Hernadez [address], [place], [address], [facility] 10/16/2023 17:09:50 07/18/2024 text/html Patient presents [...] past. RITO SANDHU MD [address], [place], [address], [facility] 07/18/2024 14:58:51 OBGyn Episode No OBEpisode recorded.
--- OUTSIDE RECORDS SUMMARY | 2024-09-22 13:52 | XMS_ITS | Clinical Summary ---
Author Organization [facility] Address [address] [place] [place] [address] Phone Care Team Providers Care Machine Fur Cleaner Name Role Phone Unavailable Primary Care Provider Unavailabl e Allergies No known active allergies Medications ondansetron (ZOFRAN) 8 mg Tablet Take 1 Tablet (8 mg) by mouth every 8 hours as needed for Nausea/Emesi s. 10 Tablet 09/18/2024 6:54 PM LEAF BINNER 09/18/2024 09/22/19 25 Active oxyCODONE (ROXICODONE) 5 mg tabletIndicatio ns:Pelvic mass Take 1 Tablet (5 mg) by mouth every 4 hours as needed for Pain. Max Daily Amount: 6 tablets (30 mg) 12 Tablet 09/18/2024 7:16 PM LEAF BINNER 09/18/2024 09/21/19 25 Active Problems No known active problems Encounters Date Type Department Care Team Description 09/22/2024 Results Follow-Up [facility] Gynecologic Oncology [facility] [address] [facility] [address] [place] [address] Blanca Caruso MD CYTOLOGY, NON GYNE, PATHOLOGY 09/22/2024 Telephone [facility] Gynecologic Oncology [facility] [address] [facility] [address] [place] [address] Blanca Caruso MD Pain 09/22/2024 Telephone [facility] Gynecologic Oncology [facility] [address] [facility] [address] [place] [address] Blanca Caruso MD Surgery 09/19/2024 Abstract [facility] Gynecologic Oncology [facility] [address] [place] [address] [place] [address] Blanca Caruso MD 09/19/2024 Abstract [facility] Gynecologic Oncology [facility] [address] [facility] [address] [place] [address] Blanca Caruso MD 09/18/2024 2:07 PM LEAF BINNER Anesthesia Event [facility] Operating Room [address] [place] [address] Darrick Pichardo MD Green, Adam C, AA-C 09/18/2024 1:35 PM LEAF BINNER - 09/18/2024 5:35 PM LEAF BINNER Surgery [facility] Operating Room [address] [place] [address] Blanca Caruso MD SALPINGO-OOPHORECTOM Y ROBOTIC XI 09/18/2024 11:35 AM LEAF BINNER - 09/18/2024 7:23 PM LEAF BINNER Hospital Encounter [facility] [address] [place] [address] Blanca Caruso MD Pelvic mass Discharge Disposition: Home or Self Care 09/16/2024 Telephone [facility] Gynecologic Oncology [facility] [address] [facility] [address] [place] [address] Blanca Caruso MD Question (Symptoms before surgery) 09/12/2024 Telephone [facility] Gynecologic Oncology [facility] [address] [facility] [address] [place] [address] Blanca Caruso MD Surgery 09/04/2024 External Device Data ST[facility] ABSTRACTION Provider, Abstract 09/03/2024 External Device Data [facility] ABSTRACTION Provider, Abstract 09/02/2024 External Device Data [facility] ABSTRACTION Provider, Abstract 08/29/2024 Telephone [facility] Gynecologic Oncology [facility] [address] [facility] [address] [place] [address] Blanca Caruso MD Surgery date 08/29/2024 Telephone [facility] Gynecologic Oncology [facility] [address] [facility] [address] [place] [address] Blanca Caruso MD Surgery 08/26/2024 External Device Data STL ABSTRACTION Provider, Abstract 08/20/2024 2:00 PM LEAF BINNER Office Visit [facility] Gynecologic Oncology [place] [address] [facility] [address] [place] [address] Blanca Caruso MD Adnexal mass (Primary Dx) 08/20/2024 Telephone [facility] Gynecologic Oncology [place] [address] [facility] [address] [place] [address] Blanca Caruso MD Surgery 08/20/2024 Orders Only [facility] Oncology and Hematology [facility] [address] [facility] [address] [place] [address] Klaudia iLm MD 08/05/2024 External Device Data ST[facility] ABSTRACTION Provider, Abstract 07/31/2024 Telephone [facility] Gynecologic Oncology [place] [address] [place] [address] Blanca Caruso MD Appointment Notification 07/31/2024 Telephone [facility] Gynecologic Oncology [place] [address] [place] [address] Amna Luevano, A Referral 07/31/2024 Abstract [facility] Gynecologic Oncology [place] [address] [place] [address] Blanca Caruso MD from Last 3 Months [...] on file Legal Sex Female 9:03 AM LEAF BINNER Gender Identity Not on file Sexual Orientation Not on file Last Filed Vital Signs Vital Sign Reading Time Taken Comments Blood Pressure 130/60 09/18/2024 7:22 PM LEAF BINNER Pulse 51 09/18/2024 7:22 PM LEAF BINNER Temperature 36.7 C (98.1 F) 09/18/2024 7:22 PM LEAF BINNER Respiratory Rate 16 09/18/2024 7:22 PM LEAF BINNER Oxygen Saturation 94% 09/18/2024 7:22 PM LEAF BINNER Inhaled Oxygen Concentration - - Weight 51.4 kg (113 lb 4.8 oz) 09/18/2024 12:04 PM LEAF BINNER Height 167.6 cm (5' 6 ) 09/18/2024 12:04 PM LEAF BINNER Body Mass Index 18.29 09/18/2024 12:04 PM LEAF BINNER Plan of Treatment Upcoming Encounters Date Type Department Care Team (Late st Contact Info) Description 10/06/2024 1:45 PM LEAF BINNER Office Visit [facility] Gynecologic Oncology [facility] [address] [facility] [place] [address] [place] [address] Elisabeth Sheffield, BUSINESS SYSTEMS ARCHITECT [address] [facility] [place] [address] [place] [address] Health Maintenance Due Date Last Done Comments DTAP/TDAP/TD VACCINES (1 - Tdap) 2015 HEPATITIS B VACCINES (1 of 3 - 19+ 3-dose series) 2015 CERVICAL CANCER SCREENING 2017 INFLUENZA VACCINE (#1) 2024 HPV VACCINES Aged Out No longer eligi ble based on patient's age to complete this topic Procedures Procedure Name Priority Date/Time Associated Diagnosis Comments PATHOLOGY Pathology 09/18/2024 3:15 PM LEAF BINNER Pelvic mass [place] ANESTHESIA BLOCK PB PLACEHOLDER CHARGE Routine 09/18/2024 3:14 PM LEAF BINNER CYTOLOGY, NON GYNE Pathology 09/18/2024 3: 05 PM LEAF BINNER Pelvic mass KS ANES INSERT ENDOTRACHEAL AIRWAY Routine 09/18/2024 2:25 PM LEAF BINNER HERNIA INGUINAL REPAIR 09/18/2024 1:35 PM LEAF BINNER Pelvic mass KS LAPAROSCOPY W/RMVL ADNEXAL STRUCTURES 09/18/2024 1:35 PM LEAF BINNER Pelvic mass IR INJECTION Routine 09/18/2024 12:45 PM LEAF BINNER POC , URINE Routine 09/18/2024 12:35 PM LEAF BINNER from Last 3 Months Results * PATHOLOGY (09/18/2024 3:15 PM LEAF BINNER) CASE REPORT Surgical Pathology Report Case: [id number] Authorizing Provider: Blanca Caruso MD Collected: 09/18/2024 03:15 PM Ordering Location: [facility] Received: 09/19/2024 06:55 AM Operating Room Pathologist: Kee Werner MD Specimens: A) - Ovary, left & Fallopian tube, left, Left Ovary and Left Fallopian Tube B) - Peritoneum, Bladder Peritoneum Biopsy C) - Pelvis, Right Pericolic Gutter Biopsy D) - Pelvis, Right Pelvic Sidewall Biopsy E) - Pelvis, Left Pelvic Sidewall Biopsy F) - Omentum, Omentum Biopsy 12:48 PM LEAF BINNER [facility] FINAL DIAGNOSIS A. Fallopian tube an d ovary, left, salpingo-oophorectomy (including frozen section): - Ovarian endometriotic cyst. - Ovarian cortical simple inclusion cysts. - Tubo-ovarian adhesions. - Fallopian tube with no significant pathologic change. B. Peritoneum, bladder peritoneum, biopsy: - Suggestive of endometriosis. C. Pelvis, right pericolic gutter, biopsy: - Suggestive of endometriosis. D. Pelvis, right pelvic sidewall, biopsy: - Suggestive of endometriosis. E. Pelvis, left pelvic sidewall, biopsy: - Suggestive of endometriosis. F. Omentum, biopsy: - Suggestive of endometriosis. 12:48 PM LEAF BINNER [facility] at [address] LEAF BINNER GROSS DESCRIPTION The specimens are received in six containers each labeled Sergio Glez Daily . Received in the first container additionally labeled left ovary and left fallopian tube is a 40 g, 8 x 7 x 1 cm pink-natarajan to pale-garcia, focally erythematous, smooth, disrupted cystic ovary. No papillations or nodularity is identified on the external surface. Sections show a pink-garcia, slightly wrinkled internal surface with no papillations identified. A portion has been previously submitted for frozen section as FS 1. [place]-natarajan to pale-garcia to yellow-orange, focally erythematous, rubbery ovarian parenchyma is identified. Received free-floating in the same container is a 8.1 x 0.6 cm pink-natarajan, focally erythematous, slightly ragged, fimbriated fallopian tube. Sections show a complete pinpoint, stellate lumen. Embroiderer sections are submitted in cassettes labeled A1-FS1; A2 through A5-cystic ovary; A6-fallopian tube, fimbria submitted entirely. Received in the second container additionally labeled bladder peritoneum biopsy is a 1.3 x 0.6 x 0.5 cm pink-natarajan to red-brown, membranous tissue fragment. The specimen is bisected and submitted entirely in cassette labeled B1. Received in the third container additionally labeled right pericolic gutter biopsy is a 0.9 x 0.6 x 0.4 cm pink-natarajan to red-brown tissue fragment. The specimen is bisected and submitted entirely in cassette labeled C1. Received in the fourth container additionally labeled right pelvic sidewall biopsy is a 1 x 0.5 x 0.4 cm pink-natarajan, membranous tissue fragment. The specimen is bisected and submitted entirely in cassette labeled D1. Received in the fifth container additionally labeled left pelvic sidewall biopsy is a 1.5 x 0.7 x 0.4 cm pink-natarajan to red-brown, membranous tissue fragment. The specimen is bisected and submitted entirely in cassette labeled E1. Received in the sixth container additionally labeled omentum biopsy is a 2.9 x 2 x 0.6 cm irregular fragment of garcia-yellow, lobulated omentum. Sections show a garcia-yellow, fatty cut surface with no definitive nodules or masses identified. Entirely submitted in cassettes labeled F1 and F2. SMB 5 12:48 PM [facility] [employer] [facility] MICROSCOPIC DESCRIPTION The slides are labeled [id number] and Sergio Gerardo. Microscopic examination substantiates the above diagnosis. Microscopic examination of biopsies reveals well-circumscribed foci within fibroadipose tissue, characterized by sheets or clusters of hemosiderin-laden macrophages and scattered endometrial stromal cells. Diagnostic endometrial glands are absent. These findings are suggestive of endometriosis Frozen section slides were reviewed and substantiate the diagnosis. 12:48 PM [facility] INTRAOPERATIVE CONSULTATION FS1: Left ovary -Benign cyst Dr. Caruso is notified Dr. Kimmie Hall 12:48 PM [facility] OPERATIVE PROCEDURE 1: SALPINGO-OOPHORECTOMY ROBOTIC XI 2: HERNIA INGUINAL REPAIR 12:48 PM [facility] CLINICAL INFORMATION Pelvic mass [R19.00] R19.00-Pelvic mass 12:48 PM [facility] COMMENT Special stain, immunohistochemical, and/or in situ hybridization results are interpreted with controls that demonstrate appropriate staining reactions. Note on use of immunohistochemistry reagents and in situ hybridization probes: These tests were developed and their performance characteristics determined by [facility], Department of Laboratory Medicine. It has not been cleared or approved by the U.S. Food and Drug Administration. The FDA has determined that such clearance or approval is not necessary. The test is used for clinical purposes. It should not be regarded as investigational or for research. This laboratory is certified to perform high complexity testing. Frozen section/operating room consultation, gross examination and dissection, and case sign out may have been performed in part or completely in the following laboratories: [facility], [place] #[id number] [address] [place] [address] [facility], CLIA #[id number] [address] [place] [address] [facility]/[place], [place] #[id number] [address] [place] [address] This report was created with the [employer] voice-activated dictation system. Inherent to this system is the possibility of syntax, grammar, punctuation and other errors that could impact the interpretation of the report. If there are interpretative questions about aspects of this report, please contact the performing pathologist. 12:48 PM [facility] Tissue (Ovary, left & Fallopian tube, left) Collection / Unknown 09/18/2024 3:15 PM LEAF BINNER 09/19/2024 6:55 AM LEAF BINNER Tissue specimen (specimen) ENTIRE SEROUS MEMBRANE OF PERITONEUM / Unknown 09/18/2024 3:25 PM LEAF BINNER 09/19/2024 6:55 AM LEAF BINNER Tissue specimen (specimen) ENTIRE PELVIS / Unknown 09/18/2024 3:30 PM LEAF BINNER 09/19/2024 6:55 AM LEAF BINNER Tissue specimen (specimen) ENTIRE PELVIS / Unknown 09/18/2024 3:30 PM LEAF BINNER 09/19/2024 6:55 AM LEAF BINNER Tissue specimen (specimen) ENTIRE PELVIS / Unknown 09/18/2024 3:31 PM LEAF BINNER 09/19/2024 6:55 AM LEAF BINNER Tissue specimen (specimen) (Omentum) 09/18/2024 3:31 PM LEAF BINNER 09/19/2024 6:55 AM LEAF BINNER Blanca Caruso MD PATHOLOGY/CYTOLOGY ORDERABLES Final Result Performing Organization Address City/State/[facility] Co de Phone Number [facility]# [id number] [address] [facility] [address] [facility] [place] [address] * [place] ANESTHESIA BLOCK PB PLACEHOLDER CHARGE (09/18/2024 3:14 PM LEAF BINNER) Narrative Darrick Pichardo MD - 09/18/2024 3:14 PM LEAF BINNER Darrick Pichardo MD 09/18/2024 3:15 PM TAP Block Patient location during procedure: OR Start time: 09/18/2024 2:30 PM End time: 09/18/2024 2:36 PM Reason for block: at surgeon's request and post-op pain management Staffing Performed: Anesthesiologist (/) Authorized by: Darrick Pichardo MD Performed by: Darrick Pichardo MD Preanesthetic Checklist Completed: patient identified, IV checked, site marked, risks and benefits discussed, surgical consent, monitors and equipment checked, pre-op evaluation and timeout performed Hand hygiene performed prior to procedure Patient was prepped and draped in usual sterile fashion Mask worn Patient position: Supine Prep: ChloraPrep Patient monitoring: Continuous pulse oximetry, ETCO2, EKG, Heart rate and Non-invasive blood pressure Block Region: Truncal Block Block Type: TAP Laterality: Bilateral (bilateral) Injection technique: Single-shot [place] Identification: ultrasound guided Local infiltration anesthetic: Lidocaine 2%- 2 mL. Local injected: Bupivacaine with epinephrine and Bupivacaine 0.25% Dexamethasone (mg): 2 Total Volume Injected (mL): 40 Needle Needle type: Short-bevel Needle gauge: 22 G Needle length: 8 cm. Needle localization: Ultrasound guidance Nerve Stimulator or Paresthesia Response Motor response or paresthesia obtained mA ms Depth (cm) Sedation Given: Patient Response: Asleep Assessment Paresthesia pain: None Heart rate change: no Slow fractionated injection: yes Narrative Injections made incrementally with aspirations every (mL): 5 Events: easy and well tolerated and no block events Outcome: Complete Additional Notes I have discussed with the patient, and/or surrogate, the placement of a transverse abdominus plane block for postoperative pain management. We have discussed the risks, benefits, complications and side effects. We have also discussed alternative methods of postoperative analgesia. The patient, and/or surrogate, understands and wishes to proceed with the procedure. Heart rate and Sp02 monitored during and immediately following procedure and stable throughout. us Darrick Pichardo MD PROCEDURE/MINOR SURGICAL ORDER NUNU Final Result * CYTOLOGY, NON GYNE (09/18/2024 3:05 PM LEAF BINNER) CASE REPORT Medical Cytology Report Case: [id number] Authorizing Provider: Blanca Caruso MD Collected: 09/18/2024 03:05 PM Ordering Location: [facility] Received: 09/19/2024 07:31 AM Operating Room Pathologist: Ruth Shin MD Specimen: Pelvis, Pelvic Washings 10:41 AM [facility] FINAL DIAGNOSIS Pelvic washings: - Negative for malignancy. - Abundant hemosiderin laden macrophages. 10:41 AM [facility] at [address] LEAF BINNER GROSS DESCRIPTION Received is a container labeled Sergio lGez Daily and pelvic washings . It contains approximately 20 mL of cloudy red fluid. One ThinPrep made. LM 10:41 AM [facility] MICROSCOPIC DESCRIPTION The slides are labeled [id number] and Daily, Sergio. The ThinPrep slide is abundantly cellular with reactive mesothelial cells and hemosiderin laden macrophages. No distinct atypical cell population is identified. 10:41 AM [facility] OPERATIVE PROCEDURE 1: SALPINGO-OOPHORECTOMY ROBOTIC XI 2: HERNIA INGUINAL REPAIR 10:41 AM [facility] CLINICAL INFORMATION Pelvic mass [R19.00] R19.00-Pelvic mass 10:41 AM [facility] COMMENT Special stain, immunohistochemical, and/or in situ hybridization results are interpreted with controls that demonstrate appropriate staining reactions. Note on use of immunohistochemistry reagents and in situ hybridization probes: These tests were developed and their performance characteristics determined by [facility] Department of Laboratory Medicine. It has not been cleared or approved by the U.S. Food and Drug Administration. The FDA has determined that such clearance or approval is not necessary. The test is used for clinical purposes. It should not be regarded as investigational or for research. This laboratory is certified to perform high complexity testing. Cases may have been signed out in part or completely in the following laboratories: [facility], CLIA #[id number] [address] [place] [id number] [place] [address]/[place], CLIA #[id number] [address] [place] [address]. 10:41 AM [facility] Washings ENTIRE PELVIS / Unknown Collection / Unknown 09/18/2024 3:05 PM LEAF BINNER 09/19/2024 7:31 AM LEAF BINNER us Blanca Caruso MD PATHOLOGY/CYTOLOGY ORDERABLES Final Result [facility] CLIA# [id number] [address] [place] [address] * [place] ANES INSERT ENDOTRACHEAL AIRWAY (09/18/2024 2:25 PM LEAF BINNER) Narrative Antonio Ivan AA-C - 09/18/2024 2:25 PM LEAF BINNER Antonio Ivan AA-C 09/18/2024 2:52 PM Airway Date/Time: 09/18/2024 2:25 PM Location: OR Plan: routine intubation Patient Identity Confirmed by: Verbally with patient and armband Airway: not difficult Staffing Performed: LUBRICATION SERVICER/CAA Authorized by: Darrick Pichardo MD Performed by: Antonio Ivan AA-C Indications and Patient Condition: Indications for Airway Management: Anesthesia Sedation Level: general anesthesia Preoxygenated: yes Patient Position: Sniffing Mask Difficulty Assessment: 1 - vent by mask Plan to extubate at end of case: Yes Final Airway Details: Final Airway Type: Endotracheal airway ETT Cuffed: Yes Cuff Volume (mL): 6 Technique Used for Successful ETT Placement: Direct laryngoscopy Blade Type: curved blade Blade Size: 3 Insertion Site: Oral ETT Size (mm): 7.0 Measured from: Lips ETT to Lips (cm): 21 Tube secured with: Tape Placement Verified by: auscultation, end tidal CO2 and chest rise Cormack-Lehane Classification: Grade I - full view of glottis Number of Attempts at Approach: 1 Additional Procedure Information: atraumatic and dentition unchanged Darrick Pichardo MD PROCEDURE/MINOR SURGICAL ORDER NUNU Final Result * IR INJECTION (09/18/2024 12:45 PM LEAF BINNER) Narrative 09/18/2024 12:45 PM LEAF BINNER Order information only. Exam was auto-finalized. Darrick Pichardo MD IR ORDERABLES Final Result * POC , URINE (09/18/2024 12:35 PM LEAF BINNER) HCG QUAL URINE Negative Negative 09/18/2024 12:35 PM LEAF BINNER [facility] [employer] [facility] Urine 09/18/2024 12:3 5 PM LEAF BINNER 09/18/2024 12:42 PM LEAF BINNER Narrative [facility] [employer] [facility] - 09/18/2024 12:35 PM LEAF BINNER Positive : Result is greater than or equal to 25 mIU/mL Negative: Result is less than 25 mIU/mL Invalid: Result is borderline or indeterminate,send to lab for serum test methodology. Blanca Caruso MD POINT OF CARE TESTING Final R esult [facility]# [id number] [address] [place] [address] from Last 3 Months Insurance [facility] BLUE ACCESS CHOICE [employer] Commercial Advance Directives For more information, please contact: [phone] * Full Code (Latest Code Status on File) Date Activated Date Inactivated Comments 09/18/2024 3:48 PM 09/18/2024 9:28 PM * Full Code Date Activated Date Inactivated Comments 09/18/2024 12:04 PM 09/18/2024 3:48 PM
--- OUTSIDE RECORDS SUMMARY | 2024-09-22 13:52 | XMS_ITS | Clinical Summary ---
Author Organization [facility] Address [address] [place] [address] Care Team Providers Care Bricklayer Tender Name Role Phone None, Provider MD Primary [...] 63 03/29/2019 11:00 PM CDT Temperature 36.2 C (97.2 F) 03/29/2019 8:10 PM CDT Respiratory Rate 16 03/29/2019 11:00 PM CDT [...] age to complete this topic Care Teams Bricklayer Tender Relationship Specialty Start Date End Date None, Provider, PCP - General 03/29/19
[2024-09-22 14:10] LABS: Basophils Percent Auto 0.4 % (0.2-1.2); Eosinophils Absolute Auto 0.3 K/mm3 (0-0.3); Eosinophils Percent Auto 2.8 % (0-4.4); Hematocrit 43.1 % (37.0-47.0); Hemoglobin 14.4 g/dL (12.0-15.0); Immature Granulocyte Absolute 0.03 K/mm3 (0.00-0.031); Immature Granulocyte Percent A 0.3 % (0-0.5); Lymphocytes Absolute Auto 3.43 K/mm3 (0.9-3.2); Lymphocytes Percent Auto 34.9 % (18.3-44.2); Mean Corpuscular HGB Conc 33.4 g/dl (32-36); Mean Corpuscular Hemoglobin 29.4 pg (26-34); Mean Corpuscular Volume 88.1 fl (80-100); Mean Platelet Volume 9.4 fl (7.4-10.4); Monocytes Absolute Auto 0.6 K/mm3 (0.1-0.6); Monocytes Percent Auto 5.9 % (2.6-8.5); Neutrophils Absolute Auto 5.5 K/mm3 (1.3-6.7); Neutrophils Percent Auto 55.7 % (45.5-73.1); Platelet Count Result 327 k/mm3 (150-375); Red Blood Count 4.89 M/mm3 (4.2-5.4); White Blood Count 9.8 K/mm3 (4.5-10.0)
[2024-09-22 14:20] LABS: INR 0.9; Prothrombin Time 12.8 Seconds (11.1-14.7)
[2024-09-22 14:21] LABS: Alanine Aminotransferase 17 U/L (6-35); Albumin Level 4.3 g/dL (3.5-5.1); Alkaline Phosphatase 81 U/L (38-126); Anion Gap 10 mmol/L (4-12); Aspartate Amino Transferase 22 U/L (14-36); Bilirubin,Total 1.1 mg/dL (0.2-1.3); Blood Urea Nitrogen 7 mg/dL (7-17); Calcium 9.5 mg/dL (8.4-10.2); Carbon Dioxide 28 mmol/L (22-30); Chloride 102 mmol/L (98-107); Estimated Glomerular Filt Rate > 60; Glucose 97 mg/dL (65-110); Lipase 61 U/L (23-300); Partial Thromboplastin Time 26.8 Seconds (22.3-36.8); Potassium 3.8 mmol/L (3.4-5.0); Sodium 140 mmol/L (137-145)
[2024-09-22 14:32] LABS: Troponin I < 0.012 ng/mL (0.000-0.034)
[2024-09-22 17:08] VITALS: BP 106/69; PULSE 63; RESP 16; O2SAT 99
--- NOTE | 2024-09-22 17:18 | PC.NURSE ---
Pt declined to be seen due to wait time. Pt IV removed and exited out the ED w/ her sister, NAD noted.
--- OUTSIDE RECORDS SUMMARY | 2024-09-22 17:40 | XMS_ITS | Referral Summary ---
Author Organization [facility] Address [address] [place] [address] Care Team Providers Care Color Technician Name Role Phone Unavailable Primary Care Provider Unavailabl e Source Comments [facility],non-owned Affiliates and Associated Physician Practices is amultiple site organization consisting of ambulatory clinics and hospital sitesin [place], [place] and [place]. This disclosure is being madepursuant to the Care Everywhere program and may not contain all information available regarding this patient. Last updated 18.[facility] Allergies No known active allergies Medications * [...] Comments Blood Pressure 129/94 07/30/2023 2:37 PM LICENSED PSYCHOLOGIST MANAGER Pulse 84 07/30/2023 12:06 PM LICENSED PSYCHOLOGIST MANAGER Temperature 36.6 C (97.8 F) 07/30/2023 12:06 PM LICENSED PSYCHOLOGIST MANAGER Respiratory Rate 20 07/30/2023 12:06 PM LICENSED PSYCHOLOGIST MANAGER Oxygen Saturation 99% 07/30/2023 2:37 PM LICENSED PSYCHOLOGIST MANAGER Inhaled Oxygen Concentration - - Weight 50.3 kg (111 lb) 07/30/2023 12:06 PM LICENSED PSYCHOLOGIST MANAGER Height 167.6 cm (5' 6 ) 07/30/2023 12:06 PM LICENSED PSYCHOLOGIST MANAGER Body Mass Index 17.92 07/30/2023 12:06 PM LICENSED PSYCHOLOGIST MANAGER Plan of Treatment Not on file
--- OUTSIDE RECORDS SUMMARY | 2024-09-22 17:40 | XMS_ITS | Clinical Summary ---
Author Organization [facility] [employer] Address [address] [place] [address] Care Team Providers Care Screen Printing Cloth Spreader Name Role Phone Unavailable Primary Care Provider Unavailabl e Source Comments [facility],non-owned Affiliates and Associated Physician Practices is amultiple site organization consisting of ambulatory clinics and hospital sitesin [place], [place], [place] and [place]. This disclosure is being madepursuant to the Care Everywhere program and may not contain all information available regarding this patient. Last updated 18.[facility] Allergies No known active allergies Medications * [...] Comments Blood Pressure 129/94 07/30/2023 2:37 PM MASS COMMUNICATIONS PROFESSOR Pulse 84 07/30/2023 12:06 PM MASS COMMUNICATIONS PROFESSOR Temperature 36.6 C (97.8 F) 07/30/2023 12:06 PM MASS COMMUNICATIONS PROFESSOR Respiratory Rate 20 07/30/2023 12:06 PM MASS COMMUNICATIONS PROFESSOR Oxygen Saturation 99% 07/30/2023 2:37 PM MASS COMMUNICATIONS PROFESSOR Inhaled Oxygen Concentration - - Weight 50.3 kg (111 lb) 07/30/2023 12:06 PM MASS COMMUNICATIONS PROFESSOR Height 167.6 cm (5' 6 ) 07/30/2023 12:06 PM MASS COMMUNICATIONS PROFESSOR Body Mass Index 17.92 07/30/2023 12:06 PM MASS COMMUNICATIONS PROFESSOR Plan of Treatment Health Maintenance Due Date [...]
--- OUTSIDE RECORDS SUMMARY | 2024-09-22 17:40 | XMS_ITS | Clinical Summary ---
Author Organization [facility] Address [address] [place] [id number] Care Team Providers Care Finish Painter Name Role Phone None, Provider MD Primary [...] age to complete this topic Care Teams Finish Painter Relationship Specialty Start Date End Date None, Provider, PCP - General 03/29/19
--- OUTSIDE RECORDS SUMMARY | 2024-09-22 17:40 | XMS_ITS | Patient Health Summary ---
Author Organization [facility] [email or web address] Address [address] [facility] [place] [address] Care Team Providers Care Chief Nurse Executive Name Role Phone Unavailable Primary Care Provider Unavailabl e Note from [facility] [email or web address] [facility],non-owned Affiliates and Associated Physician Practices is amultiple site organization consisting of ambulatory clinics and hospital sitesin [place], [place], [place] and [place]. This disclosure is being madepursuant to the Care Everywhere program and may not contain all information available regarding this patient. Last updated 18.[facility] [email or web address] Allergies No known active allergies Medications * [...] Comments Blood Pressure 129/94 07/30/2023 2:37 PM DIVISION TRAFFIC SUPERINTENDENT Pulse 84 07/30/2023 12:06 PM DIVISION TRAFFIC SUPERINTENDENT Temperature 36.6 C (97.8 F) 07/30/2023 12:06 PM DIVISION TRAFFIC SUPERINTENDENT Respiratory Rate 20 07/30/2023 12:06 PM DIVISION TRAFFIC SUPERINTENDENT Oxygen Saturation 99% 07/30/2023 2:37 PM DIVISION TRAFFIC SUPERINTENDENT Inhaled Oxygen Concentration - - Weight 50.3 kg (111 lb) 07/30/2023 12:06 PM DIVISION TRAFFIC SUPERINTENDENT Height 167.6 cm (5' 6 ) 07/30/2023 12:06 PM DIVISION TRAFFIC SUPERINTENDENT Body Mass Index 17.92 07/30/2023 12:06 PM DIVISION TRAFFIC SUPERINTENDENT Procedures * TRICHOMONAS RAPID TEST(Performed 07/30/2023) * CHLAMYDIA + GC AMPLIFIED PROBE(Performed 07/30/2023) * BACTERIAL VAGINOSIS + YEAST SMEAR(Performed 07/30/2023) * URINALYSIS REFLEX MICROSCOPIC REFLEX CULTURE(Performed 07/30/2023) * HCG BETA BLOOD QUANTITATIVE(Performed 07/30/2023) * LIPASE BLOOD(Performed 07/30/2023) * COMPREHENSIVE METABOLIC PANEL(Performed 07/30/2023) * CBC W AUTO DIFFERENTIAL(Performed 07/30/2023) Results * (ABNORMAL) BACTERIAL VAGINOSIS + YEAST SMEAR (07/30/2023 1:29 PM DIVISION TRAFFIC SUPERINTENDENT) Clue Cells No Clue Cells Seen No Clue Cells Seen 07/30/2023 3:57 PM DIVISION TRAFFIC SUPERINTENDENT [facility] Yeast No Yeast Seen No Yeast Seen 07/30/20 3:57 PM DIVISION TRAFFIC SUPERINTENDENT [facility] Debbie Score Debbie Score 4-6: Consistent with transition from normal vaginal susana(A) Debbie Score 0-3: Consistent with normal vaginal susana 07/30/2023 3:57 PM DIVISION TRAFFIC SUPERINTENDENT [facility] Microbiology ENTIRE VAGINA / Unknown Collection / Unknown 07/30/2023 1:29 PM DIVISION TRAFFIC SUPERINTENDENT 07/30/2023 2:14 PM DIVISION TRAFFIC SUPERINTENDENT Ada Landon PA-C LAB - MICROBIOLOGY ORDERABLES Performing Organization Address City/State/[facility] Co de Phone Number [facility] [address] [phone] * CHLAMYDIA + GC AMPLIFIED PROBE (07/30/2023 1:29 PM DIVISION TRAFFIC SUPERINTENDENT) Chlamydia Amplified Probe Negative Negative 07/30/2023 7:24 PM DIVISION TRAFFIC SUPERINTENDENT [facility] GC Amplified Probe Negative Negative 07/30/2023 7:24 PM DIVISION TRAFFIC SUPERINTENDENT [facility] Microbiology ENTIRE ENDOCERVIX / Unknown Collection / Unknown 07/30/2023 1:29 PM DIVISION TRAFFIC SUPERINTENDENT 07/30/2023 2:14 PM DIVISION TRAFFIC SUPERINTENDENT Narrative [facility] - 07/30/2023 7:24 PM DIVISION TRAFFIC SUPERINTENDENT Results based on detection/no detection of ribosomal RNA by amplified method. Ada Landon PA-C LAB - MICROBIOLOGY ORDERABLES [facility] [address] [place] [address], [facility] [phone] * (ABNORMAL) TRICHOMONAS RAPID TEST (07/30/2023 1:29 PM DIVISION TRAFFIC SUPERINTENDENT) Trichomonas Rapid Test Positive( A) Negative 07/30/2023 2:10 PM DIVISION TRAFFIC SUPERINTENDENT [facility] Microbiology VAGINAL SWAB / Unknown Collection / Unknown 07/30/2023 1:29 PM DIVISION TRAFFIC SUPERINTENDENT 07/30/2023 1:43 PM DIVISION TRAFFIC SUPERINTENDENT Ada Landon PA-C LAB - MICROBIOLOGY ORDERABLES Performing Organization Address [facility] Co de Phone Number [facility] [address] [place] [address] * URINALYSIS REFLEX MICROSCOPIC REFLEX CULTURE (07/30/2023 1:20 PM DIVISION TRAFFIC SUPERINTENDENT) Color UA Yellow Straw, Yellow 07/30/2023 1:29 PM DIVISION TRAFFIC SUPERINTENDENT [facility] Clarity UA Clear Clear 07/30/2023 1:29 PM DIVISION TRAFFIC SUPERINTENDENT [facility] Glucose UA Negative Negative 07/30/2023 1:29 PM DIVISION TRAFFIC SUPERINTENDENT [facility] Bilirubin UA Negative Negative 07/30/2023 1:29 PM DIVISION TRAFFIC SUPERINTENDENT [facility] Ketone UA Negative Negative 07/30/2023 1:29 PM DIVISION TRAFFIC SUPERINTENDENT [facility] Specific [place] UA 1.021 1.005 - 1.030 07/30/2023 1:29 PM DIVISION TRAFFIC SUPERINTENDENT [facility] Blood UA Negative Negative 07/30/2023 1:29 PM DIVISION TRAFFIC SUPERINTENDENT [facility] pH UA 6.0 5.0 - 8.0 pH 07/30/2023 1:29 PM DIVISION TRAFFIC SUPERINTENDENT [facility] Protein UA Negative Negative 07/30/2023 1:29 PM DIVISION TRAFFIC SUPERINTENDENT [facility] Urobilinogen UA Negative Negative mg/dL 07/30/2023 1:29 PM DIVISION TRAFFIC SUPERINTENDENT [facility] Nitrite UA Negative Negative 07/30/2023 1:29 PM DIVISION TRAFFIC SUPERINTENDENT [facility] Leukocyte UA Negative Negative 07/30/2023 1:[address] [facility] Urine Microscopy Urine microscopy not indicated 07/30/2023 1:[address] [facility] Reflex Status Culture not indicated 07/30/2023 1:[address] [facility] Urine URINE SPECIMEN OBTAINED BY CLEAN CATCH PROCEDURE / Unknown Collection / Unknown 07/30/2023 1:20 PM DIVISION TRAFFIC SUPERINTENDENT 07/30/2023 1:24 PM [facility] - 07/30/2023 1:29 PM DIVISION TRAFFIC SUPERINTENDENT Ankita Price MD LAB - URINALYSIS ORD ERABLES [facility] [address] [employer] [place], [place] [address] * CBC W AUTO DIFFERENTIAL (07/30/2023 12:20 PM [facility]) WBC 10.2 4.0 - 10.7 x10E9/L 07/30/2023 12:[address] [facility] RBC Count 4.88 3.90 - 5.20 x10E12/L 07/30/2023 12:[address] [facility] Hemoglobin 15.0 11.9 - 15.8 g/dL 07/30/2023 12:[address] [facility] Hematocrit 43.2 34.8 - 46.1 % 07/30/2023 12:[address] [facility] MCV 88.5 80.0 - 98.0 fL 07/30/2023 12:[address] [facility] MCH 30.7 26.7 - 33.6 pg 07/30/2023 12:[address] [facility] MCHC 34.7 31.7 - 36.3 g/dL 07/30/2023 12:[address] [facility] RDW-CV 12.6 11.3 - 14.8 % 07/30/2023 12:[address] [facility] Platelet Count 300 150 - 420 x10E9/L 07/30/2023 12:[address] [facility] MPV 9.7 7.8 - 11.4 fL 07/30/2023 12:[address] [facility] Neutrophil % 60.1 41.0 - 74.0 % 07/30/2023 12:[address] [facility] Lymphocyte % 30.5 17.0 - 47.0 % 07/30/2023 12:[address] [facility] Monocyte % 7.2 3.0 - 11.0 % 07/30/2023 12:[address] [facility] Eosinophil % 1.5 0.0 - 7.0 % 07/30/2023 12:[address] [facility] Basophil % 0.5 0.0 - 1.6 % 07/30/2023 12:[address] [facility] Immature Granulocytes % 0.2 0.0 - 1.0 % 07/30/2023 12:[address] [facility] Neutrophil Absolute 6.13 1.60 - 7.50 x10E9/L 07/30/2023 12:[address] [facility] Lymphocyte Absolute 3.11 1.00 - 4.40 x10E9/L 07/30/2023 12:[address] [facility] Monocyte Absolute 0.73 0.15 - 1.00 x10E9/L 07/30/2023 12:[address] [facility] Eosinophil Absolute 0.15 0.00 - 0.60 x10E9/L 07/30/2023 12:[address] [facility] Basophil Absolute 0.05 0.00 - 0.13 x10E9/L 07/30/2023 12:[address] [facility] Blood BLOOD SPECIMEN / Unknown Venipuncture / Unknown 07/30/2023 12:20 PM DIVISION TRAFFIC SUPERINTENDENT 07/30/2023 12:26 PM [facility] Ankita Price MD LAB - HEMATOLOGY ORD ERABLES [facility] [address] [place] [id number] * (ABNORMAL) COMPREHENSIVE METABOLIC PANEL (07/30/2023 12:20 PM [facility]) [facility] Glucose 82 70 - 105 mg/dL 07/30/2023 12:[address] [facility] Sodium 142 136 - 145 mmol/L 07/30/2023 12:[address] [facility] Potassium 3.8 3.5 - 5.1 mmol/L 07/30/2023 12:[address] [facility] Chloride 108(H) 98 - 107 mmol/L 07/30/2023 12:[address] [facility] CO2 22 22 - 29 mmol/L 07/30/2023 12:[address] [facility] Calcium 9.6 8.4 - 10.4 mg/dL 07/30/2023 12:[address] [facility] Anion Gap 12 6 - 16 mmol/L 07/30/2023 12:[address] [facility] BUN 10 5.3 - 18.7 mg/dL 07/30/2023 12:[address] [facility] Creatinine 0.73 0.57 - 1.11 mg/dL 07/30/2023 12:[address] [facility] Alkaline Phosphatase 65 40 - 150 U/L 07/30/2023 12:[address] [facility] ALT 9 0 - 55 U/L 07/30/2023 12:[address] [facility] AST 16 5 - 34 U/L 07/30/2023 12:[address] [facility] Protein Total 7.5 6.4 - 8.3 gm/dL 07/30/2023 12:[address] [facility] Albumin 4.2 3.4 - 5.0 gm/dL 07/30/2023 12:[address] [facility] Bilirubin Total 1.5(H) 0.2 - 1.2 mg/dL 07/30/2023 12:[address] [facility] eGFR by CKD-EPI >90 >=90 mL/min/1.7 3 m2 07/30/2023 12:[address] [facility] Blood BLOOD SPECIMEN / Unknown Venipuncture / Unknown 07/30/2023 12:20 PM DIVISION TRAFFIC SUPERINTENDENT 07/30/2023 12:26 PM [facility] Ankita Price MD LAB - CHEMISTRY MAC LOVING [facility] Organization Address City/State/ZIP Co de Phone Number [facility] [address] [place] [address] * HCG BETA BLOOD QUANTITATIVE (07/30/2023 12:20 PM DIVISION TRAFFIC SUPERINTENDENT) hCG Quantitative <2.42 mIU/mL 07/30/20 1:23 PM DIVISION TRAFFIC SUPERINTENDENT [facility] Blood BLOOD SPECIMEN / Unknown Venipuncture / Unknown 07/30/2023 12:20 PM DIVISION TRAFFIC SUPERINTENDENT 07/30/2023 12:26 PM DIVISION TRAFFIC SUPERINTENDENT Narrative [facility] - 07/30/2023 1:23 PM DIVISION TRAFFIC SUPERINTENDENT hCG Reference Range, mIU/mL: Males 0-2.0 Non [...] Landon PA-C LAB - CHEMISTRY OR DERABLES [facility] [address] [place] [address] * LIPASE BLOOD (07/30/2023 12:20 PM DIVISION TRAFFIC SUPERINTENDENT) Lipase 17 <60 U/L 07/30/2023 12:48 PM DIVISION TRAFFIC SUPERINTENDENT [facility] Blood BLOOD SPECIMEN / Unknown Venipuncture / Unknown 07/30/2023 12:20 PM DIVISION TRAFFIC SUPERINTENDENT 07/30/2023 12:26 PM DIVISION TRAFFIC SUPERINTENDENT Ankita Price MD LAB - CHEMISTRY MAC LOVING [facility] [address] [place] [address]
--- OUTSIDE RECORDS SUMMARY | 2024-09-22 17:40 | XMS_ITS | Clinical Summary ---
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
--- OUTSIDE RECORDS SUMMARY | 2024-09-22 17:40 | XMS_ITS | Continuity of Care Document ---
Author Organization [facility] Address [address] [place] [address] [place] [address] Phone Care Team Providers Care Bell Spinner Sousaphones Name Role Phone Morgan GONZALEZ, Earle Unavailable [...] Copied on Encounter OFFICE/OUTPA TIENT VISIT, EST [facility], [address] [place], [id number], tel:[phone] [facility] back pain (chief complaint) elevated ferritin (chief complaint) LumbagoIron disorder [address], [id number] , [place]. tel:[phone] Referring Provider: Earle Mora, [address], [place], [place], [address]. tel:[phone] OFFICE/OUTPA TIENT VISIT, EST [facility], [address] [place], [id number], tel:[phone] [facility] HLP (chief complaint) hematuria (chief complaint) hemoglobin (chief complaint) dysmenorrh ea (chief complaint) HyperlipidemiaHemat uriaHemoglobin diseasePolyarthralg ia [address], [place], [place], [id number] , . [phone] Referring Provider: Earle Mora, [address], [place], [place], [id number]. tel:[phone] PREV VISIT, NEW, AGE 18-39 [facility], [address], [place], [place], [id number], [place] tel:[phone] [facility] Physical (chief complaint) Routine medical exam [address], [place], [place], [id number] , [place]. [phone] Family History Family Member Type Diagnosis Age At Onset Mother Problem (finding) Cancer, cervical Brother Problem (finding) Alive and well Father Problem (finding) Unknown Payers Payer name Insurance type Covered alliance party ID Authoriza tion(s) No Information Social [...] ordered Referral Referred To: David Vaughn [address] [place], [id number] Ordered: Referrals: David Vaughn. Evaluate and treat [...] Mental Status Date Cognitive Assessment Orientation - Mclean ed to time, place, person, situation.
== END 2024-09-22 21:09 | disposition left against medical advice (07) ==
LOC: ANHED 17:38
PROVIDERS: Emergency Medicine
DX: R07.9 Chest pain, unspecified (principal); Z98.890 Other specified postprocedural states; F17.290 Nicotine dependence, other tobacco product, uncomplicated
CPT/HCPCS: 36415; 71046; 80053; 83690; 84484; 85025; 85610; 85730; 93005; 96374; 96375; 99284